=== PATIENT | male | born 1955 | race Caucasian/White ===

== ENCOUNTER → 2017-05-22 | Outpatient (CLI) | payer MEDICAID ==
[~2017-05-22] MED LIST: BACTRIM DS 8001 TAB PO; CEPHALEXIN500 M1 PO; DOXYCYCLINE 10100 MG PO; LORTAB 5/500 501 TAB PO; NO HOME MEDICATIONS; NORCO 325 MG-51 TAB PO; NORCO 325 MG-7.1 TAB PO; POTASSIUM99 MG; ZINC GLUCONATE
[2017-05-22 15:53] LABS: CALCIUM 9.3 mg/dL (8.4-10.2); CREATININE, serum 0.93 mg/dL (0.66-1.25); POTASSIUM 3.9 mmol/L (3.4-5.0)
== END ==
LOC: COL.LAB 15:18
DX: R79.89 Other specified abnormal findings of blood chemistry (principal)

== ENCOUNTER 2017-06-18 14:15 | Outpatient (RCR) | payer MEDICARE, MEDICAID | END 2017-06-21 13:00 | disposition home or self-care (01) | LOC: MKS.ESL.PT 14:15 | DX: S14.129D Central cord syndrome at unspecified level of cervical spinal cord, subsequent encounter (principal); V49.9XXD Car occupant (driver) (passenger) injured in unspecified traffic accident, subsequent encounter | CPT/HCPCS: G8978-GP; G8979-GP; G8980-GP; G8987-GO; G8988-GO ==

== ENCOUNTER 2017-08-07 16:54 | Emergency (ER) | payer MEDICARE, MEDICAID ==
[~2017-08-07] VITALS: Ht 182.9 cm; Wt 82.1 kg
[2017-08-07 16:58] VITALS: TEMP 98.2
[2017-08-07 17:21] LABS: HEMATOCRIT 39.6 % (42.0-52.0); HEMOGLOBIN 13.2 g/dl (13.5-18.0); MEAN CELL VOLUME 87 fl (80.0-100.0); MEAN CORPUSCULAR HEMOGLOBIN 29 pg (27.0-31.0); MEAN CORPUSCULAR HGB CONC 33 g/dl (33.0-37.0); MEAN PLATELET VOLUME 8.7 fl (7.4-10.4); PLATELET COUNT 226 K/mm3 (130-400); RED BLOOD COUNT 4.54 M/mm3 (4.20-5.60); REDCELL DISTRIBUTION WIDTH-CV 13.8 % (11.5-14.5)
[2017-08-07 17:31] LABS: ALBUMIN 3.9 gm/dL (3.5-5.0); BILIRUBIN,TOTAL 0.4 mg/dL (0.0-1.0); CALCIUM 8.6 mg/dL (8.4-10.2); CREATININE, serum 1.2 mg/dL (0.66-1.25); POTASSIUM 4.3 mmol/L (3.4-5.0); TOTAL PROTEIN 7.2 gm/dL (6.4-8.2)
[2017-08-07 17:36] LABS: EOSINOPHIL 3 % (0-4); LYMPHOCYTE 78 % (20.0-51.0); NEUTROPHILS 18 % (42.0-75.2); PLATELET ESTIMATE NORMAL (NORMAL)
[2017-08-07] MEDS ORDERED: DESYREL 100MG100 MG PO (17:37)
[2017-08-07] MEDS ORDERED: NEURONTIN300 MG/CAP PO (17:37)
[2017-08-07] MEDS ORDERED: FLOMAX 0.40.4 MG/CAP PO (17:39)
[2017-08-07 19:10] LABS: COLLECTION METHOD CLEAN CATCH
[2017-08-07 19:17] LABS: MUCOUS Present /lpf; PH 6 (5-8); SQUAMOUS EPITHELIAL None Seen /hpf; URINE APPEARANCE Clear; URINE BACTERIA Rare /hpf; URINE BILIRUBIN Negative (NEGATIVE); URINE BLOOD Negative (NEGATIVE); URINE COLOR Yellow; URINE GLUCOSE Negative (NEGATIVE); URINE KETONE Negative (NEGATIVE); URINE LEUKOCYTE ESTERASE 3+ (NEGATIVE); URINE NITRATE Negative (NEGATIVE); URINE PROTEIN(semi-quant) Negative (NEGATIVE); URINE UROBILINOGEN Negative (NEGATIVE)
[2017-08-07 19:24] LABS: TRICYCLIC ANTIDEPRESS URINE NEGATIVE
[2017-08-07] MEDS ORDERED: AMOXICILLIN 8751 TAB PO (19:36)
[2017-08-07 19:43] VITALS: BP 128/92; PULSE 84
== END 2017-08-07 20:24 | disposition home or self-care (01) ==
LOC: COL.ER 16:54
PROVIDERS: Family Medicine
DX: N30.90 Cystitis, unspecified without hematuria (principal); F15.10 Other stimulant abuse, uncomplicated; F13.10 Sedative, hypnotic or anxiolytic abuse, uncomplicated; Z87.891 Personal history of nicotine dependence
CPT/HCPCS: J0696; J7030

== ENCOUNTER 2017-08-20 09:03 | Emergency (ER) | payer MEDICARE, MEDICAID ==
[~2017-08-20] VITALS: Ht 182.9 cm; Wt 82.3 kg
[~2017-08-20 09:03] MED LIST changes: +AMOXICILLIN 8751 TAB PO; +DESYREL 100MG100 MG PO; +FLOMAX 0.40.4 MG/CAP PO; +NEURONTIN300 MG/CAP PO
[2017-08-20 09:15] VITALS: TEMP 97.7
[2017-08-20 10:28] LABS: HEMATOCRIT 39.3 % (42.0-52.0); HEMOGLOBIN 13.2 g/dl (13.5-18.0); MEAN CELL VOLUME 86 fl (80.0-100.0); MEAN CORPUSCULAR HEMOGLOBIN 29 pg (27.0-31.0); MEAN CORPUSCULAR HGB CONC 34 g/dl (33.0-37.0); MEAN PLATELET VOLUME 8.3 fl (7.4-10.4); PLATELET COUNT 200 K/mm3 (130-400); RED BLOOD COUNT 4.58 M/mm3 (4.20-5.60); REDCELL DISTRIBUTION WIDTH-CV 13.6 % (11.5-14.5)
[2017-08-20 10:44] LABS: COLLECTION METHOD CLEAN CATCH
[2017-08-20 10:44] LABS: ALBUMIN 4.1 gm/dL (3.5-5.0); BILIRUBIN,TOTAL 0.8 mg/dL (0.0-1.0); C-REACTIVE PROTEIN 0.6 mg/dL (0.0-0.9); CREATININE, serum 0.98 mg/dL (0.66-1.25); TOTAL PROTEIN 7.7 gm/dL (6.4-8.2)
[2017-08-20 10:53] LABS: MUCOUS Present /lpf; PH 5 (5-8); SQUAMOUS EPITHELIAL 0-2 /hpf; URINE APPEARANCE Clear; URINE BACTERIA None Seen /hpf; URINE BILIRUBIN Negative (NEGATIVE); URINE BLOOD Negative (NEGATIVE); URINE COLOR Yellow; URINE GLUCOSE Negative (NEGATIVE); URINE KETONE Trace (NEGATIVE); URINE LEUKOCYTE ESTERASE Negative (NEGATIVE); URINE NITRATE Negative (NEGATIVE); URINE PROTEIN(semi-quant) Negative (NEGATIVE); URINE RBC 0-2 /hpf; URINE UROBILINOGEN Negative (NEGATIVE)
[2017-08-20 11:23] LABS: EOSINOPHIL 1 % (0-4); LYMPHOCYTE 81 % (20.0-51.0); NEUTROPHILS 14 % (42.0-75.2)
[2017-08-20 11:24] LABS: PLATELET ESTIMATE NORMAL (NORMAL)
[2017-08-20 11:43] VITALS: BP 136/80; PULSE 86
== END 2017-08-20 11:44 | disposition home or self-care (01) ==
LOC: COL.ER 09:03
PROVIDERS: Physician Assistant
DX: R10.30 Lower abdominal pain, unspecified (principal); Z85.72 Personal history of non-Hodgkin lymphomas; Z87.440 Personal history of urinary (tract) infections; Z98.890 Other specified postprocedural states
CPT/HCPCS: J2270; J2405

== ENCOUNTER 2017-09-09 17:00 | Emergency (ER) | payer MEDICARE, MEDICAID ==
[~2017-09-09] VITALS: Ht 182.9 cm; Wt 84.5 kg
[2017-09-09 17:05] VITALS: BP 150/91; PULSE 75; TEMP 97.9
[2017-09-09 17:32] LABS: COLLECTION METHOD CLEAN CATCH
[2017-09-09 17:48] LABS: PH 6 (5-8); SQUAMOUS EPITHELIAL None Seen /hpf; URINE APPEARANCE Cloudy; URINE BACTERIA Rare /hpf; URINE BILIRUBIN Negative (NEGATIVE); URINE BLOOD 1+ (NEGATIVE); URINE COLOR Yellow; URINE GLUCOSE Negative (NEGATIVE); URINE KETONE Negative (NEGATIVE); URINE LEUKOCYTE ESTERASE 3+ (NEGATIVE); URINE NITRATE Positive (NEGATIVE); URINE PROTEIN(semi-quant) 1+ (NEGATIVE); URINE RBC 20-50 /hpf
[2017-09-09] MEDS ORDERED: LEVAQUIN 5500 MG/TA1 PO (18:04)
== END 2017-09-09 18:29 | disposition home or self-care (01) ==
LOC: COL.ER 17:00
PROVIDERS: Family Medicine
DX: N30.00 Acute cystitis without hematuria (principal); F17.210 Nicotine dependence, cigarettes, uncomplicated
CPT/HCPCS: J0696

== ENCOUNTER → 2017-11-01 | Outpatient (CLI) | payer MEDICARE, MEDICAID ==
[~2017-11-01] MED LIST changes: +LEVAQUIN 5500 MG/TA1 PO
== END ==
LOC: COL.LAB 10:36
DX: R30.0 Dysuria (principal); Z11.3 Encounter for screening for infections with a predominantly sexual mode of transmission

== ENCOUNTER → 2018-02-13 | Outpatient (CLI) | payer MEDICARE, MEDICAID ==
[2018-02-13 10:39] LABS: HEMATOCRIT 43.1 % (42.0-52.0); HEMOGLOBIN 14.3 g/dl (13.5-18.0); MEAN CELL VOLUME 91 fl (80.0-100.0); MEAN CORPUSCULAR HEMOGLOBIN 30 pg (27.0-31.0); MEAN CORPUSCULAR HGB CONC 33 g/dl (33.0-37.0); PLATELET COUNT 261 K/mm3 (130-400); RED BLOOD COUNT 4.76 M/mm3 (4.20-5.60); REDCELL DISTRIBUTION WIDTH-CV 13.9 % (11.5-14.5)
[2018-02-13 11:05] LABS: LYMPHOCYTE 81 % (20.0-51.0); NEUTROPHILS 17 % (42.0-75.2); PLATELET ESTIMATE NORMAL (NORMAL)
[2018-02-13 11:08] LABS: ALBUMIN 4.2 gm/dL (3.5-5.0); BILIRUBIN,TOTAL 0.5 mg/dL (0.0-1.0); CALCIUM 9.7 mg/dL (8.4-10.2); CREATININE, serum 0.96 mg/dL (0.66-1.25); POTASSIUM 4.7 mmol/L (3.4-5.0); TOTAL PROTEIN 7.2 gm/dL (6.4-8.2)
[2018-02-13 11:33] LABS: HIV 1/2 Antibodies Non-Reactive; HIV-1p24 Antigen Non-Reactive
[2018-02-13 11:38] LABS: THYROID STIMULATING HORMONE 1.94 uIU/mL (0.465-4.680)
[2018-02-14 11:38] LABS: RPR (VDRL) Negative (Negative)
== END ==
LOC: COL.LAB 09:58
PROVIDERS: Family Medicine
DX: D72.820 Lymphocytosis (symptomatic) (principal); A64 Unspecified sexually transmitted disease; R00.0 Tachycardia, unspecified; R59.1 Generalized enlarged lymph nodes

== ENCOUNTER → 2018-04-19 | Outpatient (CLI) | payer MEDICARE, MEDICAID | LOC: ZCOL.LAB 16:35 | DX: R30.0 Dysuria (principal) ==

== ENCOUNTER → 2018-04-25 | Outpatient (CLI) | payer MEDICARE, MEDICAID | LOC: COL.RAD 11:02 | DX: D72.829 Elevated white blood cell count, unspecified (principal); R59.0 Localized enlarged lymph nodes; S22.080A Wedge compression fracture of T11-T12 vertebra, initial encounter for closed fracture; S32.010A Wedge compression fracture of first lumbar vertebra, initial encounter for closed fracture; N32.89 Other specified disorders of bladder; N28.82 Megaloureter; N13.30 Unspecified hydronephrosis; M89.8X8 Other specified disorders of bone, other site | CPT/HCPCS: Q9967 ==

== ENCOUNTER → 2018-06-28 | Outpatient (REF) | LOC: ZLAB.WCH 16:55 | DX: Z01.89 Encounter for other specified special examinations (principal) ==

== ENCOUNTER → 2018-06-28 | Outpatient (REF) | LOC: ZLAB.WCH 08:21 | DX: Z01.89 Encounter for other specified special examinations (principal) ==

== ENCOUNTER → 2018-07-04 | Outpatient (REF) | LOC: ZLAB.WCH 16:01 | DX: Z01.89 Encounter for other specified special examinations (principal) ==

== ENCOUNTER 2018-12-31 13:43 | Inpatient (IN) | payer MEDICARE, MEDICAID ==
[~2018-12-31] VITALS: Ht 182.9 cm; Wt 81.1 kg
[2018-12-31 14:17] LABS: COLLECTION METHOD CLEAN CATCH
[2018-12-31 14:24] LABS: ALANINE AMINOTRANSFERASE 12 U/L (21-72); ALBUMIN 3.7 gm/dL (3.5-5.0); ALKALINE PHOSPHATASE 105 U/L (50-136); ANION GAP 10 mmol/L (7-16); AST,SGOT 21 U/L (15-37); BILIRUBIN,TOTAL 0.2 mg/dL (0.0-1.0); BLOOD UREA NITROGEN 72 mg/dL (9-20); CALCIUM 8.4 mg/dL (8.4-10.2); CARBON DIOXIDE 25 mmol/L (22-30); CHLORIDE 101 mmol/L (98-107); GLUCOSE 82 mg/dL (74-106); LIPASE 66 U/L (23-300); SODIUM 136 mmol/L (137-145)
[2018-12-31 14:35] LABS: CREATININE, serum 4.26 (0.66-1.25)
[2018-12-31 14:36] LABS: POTASSIUM 6.4 mmol/L (3.4-5.0); TROPONIN-I < 0.012 ng/mL (0.000-0.035)
[2018-12-31 14:41] LABS: PROTHROMBIN TIME 11.4 SECONDS (9.7-12.8)
[2018-12-31 14:46] LABS: PH 8 (5-8); SQUAMOUS EPITHELIAL 0-2 /hpf; URINE APPEARANCE Clear; URINE BACTERIA Rare /hpf; URINE BILIRUBIN Negative (NEGATIVE); URINE BLOOD 1+ (NEGATIVE); URINE COLOR Straw; URINE GLUCOSE Negative (NEGATIVE); URINE KETONE Negative (NEGATIVE); URINE LEUKOCYTE ESTERASE 2+ (NEGATIVE); URINE NITRATE Positive (NEGATIVE); URINE PROTEIN(semi-quant) Negative (NEGATIVE); URINE UROBILINOGEN Negative (NEGATIVE)
--- NOTE | 2018-12-31 17:45 | NUR ---
Telephone report recieved from VERONICA Yarbrough
--- NOTE | 2018-12-31 18:39 | NUR ---
MD Denton in room
[2018-12-31 18:53] LABS: HEMOGLOBIN 8.9 g/dl (13.5-18.0); MEAN CORPUSCULAR HEMOGLOBIN 29 pg (27.0-31.0); RED BLOOD COUNT 3.11 M/mm3 (4.20-5.60)
[2018-12-31 18:54] LABS: MEAN CELL VOLUME 93 fl (80.0-100.0); MEAN CORPUSCULAR HGB CONC 31 g/dl (33.0-37.0); MEAN PLATELET VOLUME 9.6 fl (7.4-10.4); PLATELET COUNT 385 K/mm3 (130-400); REDCELL DISTRIBUTION WIDTH-CV 12.8 % (11.5-14.5)
[2018-12-31 18:55] VITALS: BP 142/85; PULSE 95; TEMP 99
[2018-12-31 18:57] LABS: EOSINOPHIL 2 % (0-4); HYPOCHROMIA 2+; LYMPHOCYTE 68 % (20.0-51.0); NEUTROPHILS 28 % (42.0-75.2); PLATELET ESTIMATE NORMAL (NORMAL)
[2018-12-31 20:00] VITALS: BP 161/87; PULSE 92; TEMP 98.6
--- NOTE | 2018-12-31 20:30 | NUR ---
Assessment complete; Reporting "12/10" to abdomen and penis" Patient observed intermittently yelling out loud and holding genitals. Steward tubing assessed no kinks and draining well. Does not appear to be tugging at entry site. Urine is red tinged with sediment. Patient also repeatedly saying that he doesn't think the steward is "working". Nurse attempted to educate how the steward works. Showed the paient the urine draining from the tube to the bag. Patient is alert and oriented but occasionally makes odd remards. When asked who was the current president patient stated "me", howver knows the date and where he is. Called hospitalist to ask about adding something for pain managment. Gave orders to change morphine from 2mg q2hr to 1 mg q2hr. Verbally clarified that he want to actually reduce pain medication and hospitalist stated "yes". Will call back if patient's pain continues to be uncontrolled.
--- NOTE | 2018-12-31 21:00 | NUR ---
Reported feeling need to have a BM, assisted up to toilet. Patient reported some relief from pain while sitting on the toilet. After using the toilet, patient stood up by toilet for approximately 5 minutes as he stated standing felt better as well. Nurse stayed in room while patient was standing up, then assisted back to bed.
--- NOTE | 2018-12-31 22:00 | NUR ---
Patient yelling loudlly and verbally aggressive towards staff. Acknowledged patient's pain and distress but stated that this nurse will not tolerate being yelled at. Requesting to get up to toilet. Assisted up and pain medication administered.
[2018-12-31 23:13] LABS: CALCIUM 6.7 mg/dL (8.4-10.2); CREATININE, serum 3.26 (0.66-1.25); POTASSIUM 4.6 mmol/L (3.4-5.0)
--- NOTE | 2018-12-31 23:15 | NUR ---
Patient continues to be very anxious and yelling loudly about being in pain. Called hospitalist to request further management for pain and anxiety. Received order for one time dose of ativan. Potassium results pending; requested to be notified if results are still greater than 6.5. Can call [facility] for other issues or concerns during the night.
[2019-01-01] VITALS (66 sets, daily range): BP systolic 139–162; BP diastolic 67–94; PULSE 78–109; TEMP 97.4–98.6; O2SAT 62–100
--- NOTE | 2019-01-01 01:40 | NUR ---
Resting in bed currenlty, however patient is impulsive and frequently attempts to self transfer out of bed to sit on the toilet. Patient pased one stool but mostly just passing gas. Patient not steady on feet. Has non-slip socks, bed alarm in use, and a gait belt used for transfers.
[2019-01-01 05:50] LABS: CALCIUM 6.6 mg/dL (8.4-10.2); CREATININE, serum 3.25 (0.66-1.25); POTASSIUM 4.5 mmol/L (3.4-5.0)
--- NOTE | 2019-01-01 06:30 | NUR ---
Critical WBC not called to physician as trending down.
[2019-01-01 07:12] LABS: HEMATOCRIT 24.9 % (42.0-52.0); HEMOGLOBIN 7.6 g/dl (13.5-18.0); MEAN CELL VOLUME 93 fl (80.0-100.0); RED BLOOD COUNT 2.67 M/mm3 (4.20-5.60)
[2019-01-01 07:13] LABS: EOSINOPHIL 1 % (0-4); LYMPHOCYTE 66 % (20.0-51.0); MEAN CORPUSCULAR HEMOGLOBIN 29 pg (27.0-31.0); MEAN CORPUSCULAR HGB CONC 31 g/dl (33.0-37.0); MEAN PLATELET VOLUME 9.2 fl (7.4-10.4); NEUTROPHILS 28 % (42.0-75.2); PLATELET COUNT 324 K/mm3 (130-400); REDCELL DISTRIBUTION WIDTH-CV 12.5 % (11.5-14.5)
[2019-01-01 07:15] LABS: OVALOCYTES 1+; PLATELET ESTIMATE NORMAL (NORMAL)
--- NOTE | 2019-01-01 07:30 | NUR ---
Bedside report given to VERONICA Chavarria and VERONICA Yanez.
--- NOTE | 2019-01-01 07:45 | NUR ---
pt agitated intermittently, reports pain in abd and "my tube" pointing at catheter Morphine given c only moderate relief No gross motor def. PERRLA swaying gait, bed alarm on.
--- NOTE | 2019-01-01 09:12 | NUR ---
MIAN leach met with the patient to discuss a discharge plan. The patient lives alone in [place]. The patient has a wheelchair and a walker and reports independence with ADLs. The patient states he does not have a PCP and uses [facility]. Patient reports he can afford them but sometimes cannot pick them up. The patient has advanced directives in the EMR. The patient plans to return home upon discharge. Patient may need a ride home upon discharge. MIAN leach contacted the patient's insurance to confirm transportation services, patient is covered. customer services coordinator to call the above number to arrange transportation upon discharge, if patient cannot find a ride. customer services coordinator will continue to follow to ensure a safe discharge.
[2019-01-01 11:20] LABS: CALCIUM 8.6 mg/dL (8.4-10.2)
[2019-01-01 11:21] LABS: CREATININE, serum 4.04 (0.66-1.25)
[2019-01-01 11:22] LABS: POTASSIUM 5.8 mmol/L (3.4-5.0)
--- NOTE | 2019-01-01 13:50 | NUR ---
Urology consult called to Dr Ricardo
--- NOTE | 2019-01-01 15:43 | NUR ---
Report called to medical. Lab in to draw 1600 potassium level.
--- NOTE | 2019-01-01 17:00 | NUR ---
Pt to medical unit rm 314 from ICU via WC accompanied by VERONICA Yanez. Pt with wobbly gait, alert but drowsy, intermittently c/o pain to abd, yells "my guts." Tinajero to DD with blood tinged urine with clots noted. IVF's infusing per orders through right AC site without s/s of complications. Saline lock IV to left AC without s/s of complications. Call light in reach. Bed alarm on.
--- NOTE | 2019-01-01 18:05 | NUR ---
Pt continues to yell out intermittently in pain from abdomen, has been up to bathroom multiple times, passing small amount of flatus, small formed BM this last visit to the bathroom, pt denies relief at this time. Pt eating supper, reports this is helping at this time. Sprite provided. Call light in reach. Bed alarm on.
[2019-01-02 03:29] VITALS: BP 170/83; PULSE 100; TEMP 97.6
--- NOTE | 2019-01-02 03:44 | NUR ---
for drug screen collected and taken to lab. Morphine 1mg IVP given. Sitter remains in room
[2019-01-02 04:03] LABS: TRICYCLIC ANTIDEPRESS URINE NEGATIVE
--- NOTE | 2019-01-02 08:07 | NUR ---
Patient was moved from room 314 to room 312 due to patient being a fall risk and impulsively getting out of bed. He becomes irritated with staff intervention. Was delivered breakfast and ate with fingers, did attempt to give sliverware to him and he declined. He also ate a muffin with breakfast and has crumbs in his bed and on his gown, does not wish to change when offered assistance. Morning vital signs were attempted and he refused, shouting at staff to leave him alone. Currently he is laying in bed, eyes are closed. Call light is within reach. Alarm is on, yellow gown is in place. Refuses to wear socks.
[2019-01-02 08:43] LABS: MEAN CELL VOLUME 92 fl (80.0-100.0); MEAN CORPUSCULAR HGB CONC 31 g/dl (33.0-37.0); MEAN PLATELET VOLUME 9.3 fl (7.4-10.4); PLATELET COUNT 353 K/mm3 (130-400); RED BLOOD COUNT 2.97 M/mm3 (4.20-5.60); REDCELL DISTRIBUTION WIDTH-CV 12.5 % (11.5-14.5)
[2019-01-02 08:47] LABS: ALBUMIN 3.2 gm/dL (3.5-5.0); HEMATOCRIT 27.4 % (42.0-52.0); HEMOGLOBIN 8.6 g/dl (13.5-18.0); MEAN CORPUSCULAR HEMOGLOBIN 29 pg (27.0-31.0); PHOSPHOROUS 6.1 mg/dL (2.5-4.5); POTASSIUM 4.9 mmol/L (3.4-5.0)
[2019-01-02 09:08] LABS: CREATININE, serum 4.28 (0.66-1.25)
[2019-01-02 09:58] LABS: BAND 1 % (0-10); EOSINOPHIL 2 % (0-4); HYPOCHROMIA 2+; LYMPHOCYTE 74 % (20.0-51.0); NEUTROPHILS 23 % (42.0-75.2); PLATELET ESTIMATE NORMAL (NORMAL)
--- NOTE | 2019-01-02 11:15 | NUR ---
Patient has been up and down out of bed, alarm sounding. Wishes to sit on the toilet to urinate. Is reminded of steward and realize he has it. States he needs to have a bowel movement but does not. He gets drowsy on the toliet and is easily redirected to bed.
[2019-01-02 11:48] LABS: URIC ACID 7.5 mg/dL (3.5-8.5)
[2019-01-02 12:04] LABS: C-REACTIVE PROTEIN 14.3 mg/dL (0.0-0.9)
[2019-01-02 13:00] LABS: COLLECTION METHOD CATHETER
[2019-01-02 13:19] LABS: MUCOUS Present /lpf; PH 6 (5-8); SQUAMOUS EPITHELIAL None Seen /hpf; URINE APPEARANCE Hazy; URINE BACTERIA Rare /hpf; URINE BILIRUBIN Negative (NEGATIVE); URINE BLOOD 3+ (NEGATIVE); URINE COLOR Amber; URINE GLUCOSE Negative (NEGATIVE); URINE KETONE Negative (NEGATIVE); URINE LEUKOCYTE ESTERASE 2+ (NEGATIVE); URINE NITRATE Positive (NEGATIVE); URINE PROTEIN(semi-quant) 2+ (NEGATIVE); URINE RBC >50 /hpf; URINE UROBILINOGEN Negative (NEGATIVE); URINE WBC >50 /hpf
[2019-01-02 13:24] LABS: FRACTIONAL EXCRETION OF NA+ 7.1 %
[2019-01-02 13:40] LABS: CREATININE, serum 4.15 (0.66-1.25)
[2019-01-02 15:00] VITALS: BP 130/97; PULSE 95; TEMP 98.9
[2019-01-02 18:41] VITALS: BP 121/64; PULSE 95; TEMP 98.4
--- NOTE | 2019-01-02 19:34 | NUR ---
Patient has order for CWIA protocol. Has scored 4-7, medication given as ordered. Patient does sleep for small periods of time then awakens complaining of stomach pain and wants to sit on the toilet to have a bowel movenet. Has had 2 small formed stools and has been passing a lot of gas. Is unsteady on his feet, does try to get up from bed without assist and becomes irritated when staff asks him to wait so they can attend to steward and IV tubing. This irritates the patient and he grumbles at staff.
--- NOTE | 2019-01-02 19:45 | NUR ---
Shift assessment complete. Patient agitated, insisting on walking to the bathroom. Gait very unsteady. Unable to use proper fall precaution interventions d/t agitation. Patient oriented to self and year, disoriented to place. CIWA score 6, ordered IV ativan given per protocol. Security and Demurrage Man called d/t patient agitation. Patient safely returned to bed with assist of 2. Security outside of room, not needed at this time. VP DELIVERY sitting at patient bedside d/t high fall risk and agitation. Will continue to monitor.
[2019-01-02 20:36] VITALS: BP 168/82; PULSE 102; TEMP 98.2
--- NOTE | 2019-01-02 22:08 | NUR ---
Patient in bed, continues to be agitated. Refusing staff to check VS. VP PURCHASING sitter at bedside. Patient remains confused, agitated, and insistent on walking to the bathroom, despite the presence of the catheter. Ordered IV ativan given based on last CIWA score d/t patient's refusal for staff to obtain VS. HR 102 on tele. Will continue to monitor.
[2019-01-02 23:17] VITALS: BP 179/82; PULSE 105; TEMP 98.4
[2019-01-03] VITALS (152 sets, daily range): BP systolic 108–152; BP diastolic 66–90; PULSE 77–101; TEMP 98.1–98.4; O2SAT 78–100
--- NOTE | 2019-01-03 04:31 | NUR ---
Patient in bed, sitter at bedside. Patient agitated and attempting to use commode. Reoriented patient that he has a catheter, pt still insistent on using BSC. Assisted back to bed. CIWA 8, IV ativan given per protocol. Will continue to monitor.
--- NOTE | 2019-01-03 08:06 | NUR ---
Report received from Pooja MARTIN and care resumed. Pt sleeping initially but has since been up and down several times throughout morning. Pt unable to answer orientation questions and is very unsteady on feet. When attempting to reorient and get pt to sit down he began yelling and cussing at staff stating "don't fucking push me or I'll knock you off your feet" Explained to pt I was just trying to help him from following. Bed alarm is on. Breakfast ordered. Call was placed to Darlene regarding increased etoh scores throughout last [address] further orders.
--- NOTE | 2019-01-03 10:20 | NUR ---
SW attended clinical rounds. The patient remains agitated and delirious. Plan is for the patient to transfer down to ICU today, 01/03. SW to continue to follow.
--- NOTE | 2019-01-03 10:29 | NUR ---
Dr Chawla in to see pt. Updated on continued agitation/restlessness. Meds reviewed and was decided best plan of care would be to transfer to ICU and start on precedex drip. Dr Harrington called and notified of this and agrees with plan of care. Will also order PICC line. meter shop supervisor notified of need to transfer to ICU. Will continue to follow,.
--- NOTE | 2019-01-03 12:50 | NUR ---
Telephone order per Dr Harrington to increase precedex to 1.0 mcg/kg/hr.
--- NOTE | 2019-01-03 15:10 | NUR ---
Spoke with Dr. Brooks (Radiology) about orders for LP. Dr. Brooks states unable to do unless patient is able to lay flat on x-ray table and follow commands. Patient is unable to do that at this time. Reported this to Aura MARTIN. She will page Anesthesia and speak to them
[2019-01-03 15:25] LABS: MEAN CELL VOLUME 93 fl (80.0-100.0); MEAN CORPUSCULAR HGB CONC 31 g/dl (33.0-37.0); MEAN PLATELET VOLUME 9.1 fl (7.4-10.4); PLATELET COUNT 318 K/mm3 (130-400); RED BLOOD COUNT 2.55 M/mm3 (4.20-5.60); REDCELL DISTRIBUTION WIDTH-CV 12.6 % (11.5-14.5)
[2019-01-03 15:30] LABS: ALBUMIN 2.9 gm/dL (3.5-5.0); BILIRUBIN,TOTAL 0.3 mg/dL (0.0-1.0); CALCIUM 7.7 mg/dL (8.4-10.2); PHOSPHOROUS 7.7 mg/dL (2.5-4.5); POTASSIUM 5.5 mmol/L (3.4-5.0); TOTAL PROTEIN 5.8 gm/dL (6.4-8.2)
[2019-01-03 15:37] LABS: CREATININE, serum 4.81 (0.66-1.25); HEMATOCRIT 23.7 % (42.0-52.0); HEMOGLOBIN 7.4 g/dl (13.5-18.0); MEAN CORPUSCULAR HEMOGLOBIN 29 pg (27.0-31.0)
--- NOTE | 2019-01-03 16:49 | NUR ---
Report given to Jaxon MARTIN and care transfered.
[2019-01-03 16:50] LABS: LYMPHOCYTE 79 % (20.0-51.0); NEUTROPHILS 20 % (42.0-75.2)
--- NOTE | 2019-01-03 16:50 | NUR ---
RECEIVED REPORT FROM VERONICA CANTOR. PT SLEEPING AT THIS TIME. VSS. PRESEDEX AT 0.9MCG/KG/MIN. NS AT 75ML/HR.
[2019-01-03 16:53] LABS: PLATELET ESTIMATE NORMAL (NORMAL)
--- NOTE | 2019-01-03 17:30 | NUR ---
RT AT BEDSIDE FOR ABG. PT AROUSES TO NOISES AND APPEARS AGGRESSIVE BRIEFLY BUT FALLS BACK TO SLEEP EASILY. PT TOLERATES ABG DRAW. VSS.
--- NOTE | 2019-01-03 18:27 | NUR ---
DR JAMESON AT BEDSIDE FOR ASSESSMENT. NEW ORDERS RECEIVED.
--- NOTE | 2019-01-03 19:00 | NUR ---
Received report from VERONICA Coates.
--- NOTE | 2019-01-03 22:00 | NUR ---
Patient's linens were wet with sweat and urine and required changing. Upon disturbing the patient to change linens at approx. 2109, he quickly became restless and agitated. Precedex was titrated up to 0.8 mcg/kg/hour or 16.2 mL/hr at 2118. Patient scored a 9 on the CIWA scale at this time and was given Ativan 2mg IV per orders. Patient's agitation continued to increase during bed change, and precedex was titrated up to 0.9 mcg/kg/hour or 18.2 mL/hr at 2153.
[2019-01-04] VITALS (68 sets, daily range): BP systolic 118–139; BP diastolic 79–95; PULSE 77–93; TEMP 97–99; O2SAT 87–93
--- NOTE | 2019-01-04 00:38 | NUR ---
Patient became agitated with 0000 assessment. Patient scored a 7 on the CIWA scale during assessment. Ativan 1mg IV was administered per orders.
[2019-01-04 05:36] LABS: KAPPA FREE LIGHT CHAIN-SERUM 117.06 mg/L (()); KAPPA LAMBDA RATIO 3.34 ratio (()); LAMDA FREE LIGHT CHAIN SERUM 35.06 mg/L (())
[2019-01-04 05:41] LABS: MEAN CELL VOLUME 92 fl (80.0-100.0); MEAN CORPUSCULAR HGB CONC 31 g/dl (33.0-37.0); MEAN PLATELET VOLUME 9.3 fl (7.4-10.4); PLATELET COUNT 353 K/mm3 (130-400); RED BLOOD COUNT 2.73 M/mm3 (4.20-5.60); REDCELL DISTRIBUTION WIDTH-CV 12.5 % (11.5-14.5)
--- NOTE | 2019-01-04 05:41 | NUR ---
Since 399 assessment, patient's urine has progressed from cele to pink/orange color with increased sediment and mucous.
[2019-01-04 05:44] LABS: HEMATOCRIT 25.2 % (42.0-52.0); HEMOGLOBIN 7.8 g/dl (13.5-18.0); MEAN CORPUSCULAR HEMOGLOBIN 29 pg (27.0-31.0)
[2019-01-04 05:53] LABS: ALBUMIN 2.9 gm/dL (3.5-5.0); CALCIUM 7.9 mg/dL (8.4-10.2); PHOSPHOROUS 7.5 mg/dL (2.5-4.5)
[2019-01-04 05:58] LABS: CREATININE, serum 5.29 (0.66-1.25); POTASSIUM 5.8 mmol/L (3.4-5.0)
[2019-01-04 06:04] LABS: EOSINOPHIL 3 % (0-4); HYPOCHROMIA 2+; LYMPHOCYTE 69 % (20.0-51.0); NEUTROPHILS 25 % (42.0-75.2); PLATELET ESTIMATE NORMAL (NORMAL)
--- NOTE | 2019-01-04 07:00 | NUR ---
Bedside shift report received from VERONICA George. Patient is sleeping, but is easily awakened with touch. Full assessment completed, but during assessment patient is attempting to get out of bed, states "You all are always bothering me. I'm getting out of here. Get my clothes. I'm leaving". Patient is re-covered with blankets and falls back asleep. Vital signs are stable. Precedex present, refer to titration documentation. All invasive lines assessed and secured. Call light within reach. Bed in lowest position. Side rails up x3. Bed alarm on and functioning.
--- NOTE | 2019-01-04 07:15 | NUR ---
REPORT GIVEN TO VERONICA ESTEVEZ. CARE TRANSFERRED AT THIS TIME.
--- NOTE | 2019-01-04 12:00 | NUR ---
Patient has had no acute changes throughout the shift. Patient remains sedated with Precedex, refer to titration documentation for rate changes. Patient is calm when left alone, but becomes very agitated with any stimulus. Vital signs remain stable. Call light within reach. Bed in lowest position. Side rails up x3.
--- NOTE | 2019-01-04 13:05 | NUR ---
Patient becoming restless on the way to Head CT. Refer to precedex titrations.
--- NOTE | 2019-01-04 13:15 | NUR ---
Patient transferred to CT for Head CT W/O. Patient becomes agitated, cursing at staff. Precedex gtt titrated, refer to titrations. Patient transferred back to ICU with no complications.
--- NOTE | 2019-01-04 15:00 | NUR ---
Patient's choco Cowart at bedside and updated on patient's status. Sofya states that she does not like the plan of possibly doing a lumbar puncture on Sunday per Dr. Gamino's orders. Further discussion about this plan will need to continue.
--- NOTE | 2019-01-04 19:00 | NUR ---
Family meeting involving both daughters and signifcant others as well as patient's brother and brother's . Dr. Sethi, Lisset SUAREZ, Krishna RN, and Diane RN present for family meeting. Plan of care discussed and all are in agreement to continue with the plan of care that providers see as safest, most accurate care.
--- NOTE | 2019-01-04 19:30 | NUR ---
Bedside shift report given to VERONICA Keller at this time. Patient agitated during report, vital signs stable. Call light within reach. Family at bedside. Bed in lowest position. Side rails up x3.
[2019-01-04 21:11] LABS: URINE PROTEIN:CREAT RATIO 6.28 (0.00-0.14)
[2019-01-05] VITALS (177 sets, daily range): BP systolic 112–142; BP diastolic 69–87; PULSE 75–105; TEMP 97.4–98.1; O2SAT 85–96
[2019-01-05 05:19] LABS: MEAN CELL VOLUME 91 fl (80.0-100.0); MEAN CORPUSCULAR HGB CONC 32 g/dl (33.0-37.0); PLATELET COUNT 389 K/mm3 (130-400); RED BLOOD COUNT 2.74 M/mm3 (4.20-5.60); REDCELL DISTRIBUTION WIDTH-CV 12.3 % (11.5-14.5)
[2019-01-05 05:22] LABS: HEMATOCRIT 24.8 % (42.0-52.0); MEAN CORPUSCULAR HEMOGLOBIN 29 pg (27.0-31.0)
[2019-01-05 05:31] LABS: ALBUMIN 2.9 gm/dL (3.5-5.0); BILIRUBIN,TOTAL 0.2 mg/dL (0.0-1.0); CALCIUM 7.7 mg/dL (8.4-10.2); CREATININE, serum 4.84 (0.66-1.25); MAGNESIUM 1.5 mg/dL (1.6-2.3); PHOSPHOROUS 7.5 mg/dL (2.5-4.5); POTASSIUM 5.2 mmol/L (3.4-5.0); TOTAL PROTEIN 5.9 gm/dL (6.4-8.2)
[2019-01-05 05:33] LABS: LYMPHOCYTE 78 % (20.0-51.0); NEUTROPHILS 19 % (42.0-75.2); PLATELET ESTIMATE NORMAL (NORMAL)
[2019-01-05 05:34] LABS: HYPOCHROMIA 1+
--- NOTE | 2019-01-05 09:45 | NUR ---
Weaning off Precedex
[2019-01-05 11:15] LABS: PARTIAL THROMBOPLASTIN TIME 28.8 SECONDS (26.0-37.0)
--- NOTE | 2019-01-05 12:12 | NUR ---
Sitting up in chair. Oriented to self requires reorientation to time/date. Requests "coke" RN brings carbonated coca cola beverage-pt responds "not that kind"
--- NOTE | 2019-01-05 18:18 | NUR ---
More agitated this evening, yells out, is reoriented by nursing staff then returns to hollering out immediately. Talking to things in room that are not visible to RN. Precedex restarted-titrating per protocol. See flowsheet.
[2019-01-06] VITALS (177 sets, daily range): BP systolic 124–141; BP diastolic 71–86; PULSE 49–71; TEMP 97.4–98; O2SAT 90–98
[2019-01-06 05:53] LABS: MEAN CELL VOLUME 90 fl (80.0-100.0); MEAN CORPUSCULAR HGB CONC 32 g/dl (33.0-37.0); MEAN PLATELET VOLUME 9.4 fl (7.4-10.4); PLATELET COUNT 375 K/mm3 (130-400); RED BLOOD COUNT 2.51 M/mm3 (4.20-5.60); REDCELL DISTRIBUTION WIDTH-CV 12.2 % (11.5-14.5)
[2019-01-06 05:55] LABS: PROTHROMBIN TIME 11.3 SECONDS (9.7-12.8)
[2019-01-06 05:56] LABS: HEMATOCRIT 22.6 % (42.0-52.0); HEMOGLOBIN 7.3 g/dl (13.5-18.0); MEAN CORPUSCULAR HEMOGLOBIN 29 pg (27.0-31.0)
[2019-01-06 06:04] LABS: ALANINE AMINOTRANSFERASE 12 U/L (21-72); ALBUMIN 2.8 gm/dL (3.5-5.0); ALKALINE PHOSPHATASE 99 U/L (50-136); ANION GAP 11 mmol/L (7-16); AST,SGOT 20 U/L (15-37); BILIRUBIN,TOTAL < 0.1 mg/dL (0.0-1.0); BLOOD UREA NITROGEN 66 mg/dL (9-20); CALCIUM 7.3 mg/dL (8.4-10.2); CARBON DIOXIDE 23 mmol/L (22-30); CHLORIDE 106 mmol/L (98-107); GLUCOSE 149 mg/dL (74-106); POTASSIUM 3.6 mmol/L (3.4-5.0); SODIUM 140 mmol/L (137-145); TOTAL PROTEIN 5.7 gm/dL (6.4-8.2)
[2019-01-06 06:14] LABS: MAGNESIUM 1.6 mg/dL (1.6-2.3); PHOSPHOROUS 7.9 mg/dL (2.5-4.5)
--- NOTE | 2019-01-06 06:30 | NUR ---
Patient had outburst at this nurse stating he "Wanted some fucking water!" Nurse has been filling water for patient throughout the night, he does not remember at times drinking the water. Will continue to monitor.
[2019-01-06 06:33] LABS: HYPOCHROMIA 2+; LYMPHOCYTE 56 % (20.0-51.0); NEUTROPHILS 42 % (42.0-75.2); PLATELET ESTIMATE NORMAL (NORMAL)
--- NOTE | 2019-01-06 07:18 | NUR ---
Report received from Krishna MARTIN and care resumed.
--- NOTE | 2019-01-06 07:19 | NUR ---
Pt very restless, yelling out. Saying he is "getting the hell out of here". Precedex titrated up.
--- NOTE | 2019-01-06 08:51 | NUR ---
ATTEMPTED EEG AT 0800 TODAY. PATIENT IS VERY RESTLESS AND VERONICA CANTOR STATES THAT HE WILL NOT BE ABLE TO DO EEG TODAY. PATIENT HAS BEEN VERY RESTLESS AND FRUSTRATED, WILL NOT BE ABLE TO COMPLETE EEG. WILL CHECK BACK TOMORROW ON PATIENT STATUS. TAWANA BULL, ASSEMBLY MACHINE SET UP MECHANIC
[2019-01-06 10:24] LABS: ARTERIAL BLD GAS O2 SATURATION 95.7 % (92-100); ARTERIAL BLD GAS TCO2 CT 22.4; ARTERIAL BLOOD GAS BASE EXCESS -3.6 (-2-2); ARTERIAL BLOOD GAS HCO3 21.3 meq/L (22-26); ARTERIAL BLOOD GAS PCO2 37.3 mmHg (35-45); ARTERIAL BLOOD GAS PO2 86.4 mmHg (80-100); ARTERIAL BLOOD GAS pH 7.37 (7.35-7.45)
--- NOTE | 2019-01-06 10:24 | NUR ---
Jenny with Dr Sethi in to see pt at this time as well as case management.
--- NOTE | 2019-01-06 10:32 | NUR ---
SW met with patient to follow up after the weekend. Patient has been agitated and requiring medications to control the agitation. Patient reports he lives at home and would like to go home today. Patient also reported Ty is his DPOA-HC but he would like to change it to his brother, Rashaad. SW reported that we can complete a new DPOA-HC closer to discharge. Patient is agreeable. Patient unable to complete DPOA-HC at this time due to current medication requirements for agitation. Patient continued to ask about his daughter, Bryanna, and brother, Rashaad. Patient requested SW contact Bryanna and inquire when she and Rashaad will be visiting. Patient, then quickly became agitated. SW called for nurse. Nurse advised not to contact patients family because they increase patient's agitation. SW will continue to follow.
--- NOTE | 2019-01-06 11:31 | NUR ---
Dr Gross called for status update. No new orders at this time. Dr Valverde rounding on pt at this time. Will continue to follow.
[2019-01-06 17:16] LABS: COMPLEMENT-C3 139 mg/dL (79-152); COMPLEMENT-C4 45 mg/dL (18-55)
--- NOTE | 2019-01-06 18:59 | NUR ---
Report given to Krishna MARTIN and care transfered.
[2019-01-07] VITALS: BP 135/69; PULSE 48; TEMP 97.8
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
[2019-01-07 04:00] VITALS: BP 133/81; PULSE 52; TEMP 97.6
[2019-01-07 05:20] LABS: MEAN CELL VOLUME 90 fl (80.0-100.0); MEAN CORPUSCULAR HGB CONC 32 g/dl (33.0-37.0); MEAN PLATELET VOLUME 9.2 fl (7.4-10.4); PLATELET COUNT 340 K/mm3 (130-400); RED BLOOD COUNT 2.65 M/mm3 (4.20-5.60); REDCELL DISTRIBUTION WIDTH-CV 12.4 % (11.5-14.5)
[2019-01-07 05:22] LABS: HEMATOCRIT 23.8 % (42.0-52.0); HEMOGLOBIN 7.7 g/dl (13.5-18.0); MEAN CORPUSCULAR HEMOGLOBIN 29 pg (27.0-31.0)
[2019-01-07 05:30] LABS: ALBUMIN 2.9 gm/dL (3.5-5.0); BILIRUBIN,TOTAL 0.2 mg/dL (0.0-1.0); CALCIUM 7.5 mg/dL (8.4-10.2); CREATININE, serum 2.89 (0.66-1.25); POTASSIUM 3.3 mmol/L (3.4-5.0); TOTAL PROTEIN 5.9 gm/dL (6.4-8.2)
[2019-01-07 05:35] LABS: URINE PROTEIN:CREAT RATIO 0.66 (0.00-0.14)
[2019-01-07 05:46] LABS: LYMPHOCYTE 59 % (20.0-51.0); NEUTROPHILS 39 % (42.0-75.2); PLATELET ESTIMATE NORMAL (NORMAL)
[2019-01-07 05:47] LABS: HYPOCHROMIA 1+
--- NOTE | 2019-01-07 06:50 | NUR ---
RECEIVED REPORT FROM VERONICA JOY. PT SITTING UP IN BED WATCHING TV. FLUIDS INFUSING EASILY. PRECEDEX AT 0.2MCG/KG/HR. FC PATENT AND DRAINING TO GRAVITY. PT ON RA. CALL LIGHT WITHIN REACH. PT CALM AT THIS TIME AND COOPERATIVE WITH CARE.
--- NOTE | 2019-01-07 07:34 | NUR ---
DR NELSON AT BEDSIDE FOR ASSESSMENT. NOTIFIED OF K LEVEL 3.3, ORDERS TO DSICUSS WITH DR BUCKNER. WILL ADDRESS WHEN DR BUCKNER MAKES ROUNDS.
[2019-01-07 08:00] VITALS: BP 141/78; PULSE 56; TEMP 98.2
--- NOTE | 2019-01-07 08:30 | NUR ---
PT COOPERATIVE WITH HAIR TO BE WASHED AND GOWN CHANGED. PT REMAINS CALM BUT DOES MAKE OCCASSIONAL AGGRESSIVE STATEMENT BUT THEN CORRECTS SELF. CALL LIGHT WITHIN REACH.
[2019-01-07 08:48] LABS: MAGNESIUM 1.4 mg/dL (1.6-2.3); PHOSPHOROUS 6.1 mg/dL (2.5-4.5)
--- NOTE | 2019-01-07 09:38 | NUR ---
DR JAMESON AT BEDSIDE FOR ASSESSMENT.
--- NOTE | 2019-01-07 11:10 | NUR ---
PRECEDEX OFF AT THIS TIME. WILL CONTINUE TO MONITOR PATIENT FOR INAPPROPRIATE AGGRESSIVE BEHAVIOR. PT CALM AT THIS TIME AND APPEARS TO BE TRYING TO REST. CALL LIGHT WITHIN REACH. FC PATENT.
--- NOTE | 2019-01-07 11:20 | NUR ---
DR WADSWORTH AT BEDSIDE. ADDRESSED PAIN MEDICATION, ADMISSION STATUS, NEURO STATUS WITH PRECEDEX, AND THERAPY CONSULTS.
[2019-01-07 12:00] VITALS: BP 147/86; PULSE 59; TEMP 97.9
--- NOTE | 2019-01-07 13:08 | NUR ---
SPOKE WITH INFECTION DISEASE PHSYICIAN VIA TELEPHONE AND UPDATED ON PT'S STATUS. NO NEW ORDERS.
--- NOTE | 2019-01-07 14:44 | NUR ---
SPEECH THERAPY AT BEDSIDE FOR ASSESSMENT.
--- NOTE | 2019-01-07 15:30 | NUR ---
PT ASSISTED UP TO RECLINER BY PHYSICAL THERAPY WITH GAIT BELT.
--- NOTE | 2019-01-07 15:46 | NUR ---
[employer] student met with the patient's nurse to discuss patient's agitation and orientation because the patient wants to update his DPOA-HC. The patient's nurse asked him orientation questions. The patient did not respond appropriately. media services director will continue to follow.
[2019-01-07 16:00] VITALS: BP 160/87; PULSE 90; TEMP 98
--- NOTE | 2019-01-07 16:45 | NUR ---
UPON ENTERING ROOM PT SAYS "THANK YOU FOR NOT LETTING ME LEAVE." AFTER HELPING PT BACK TO BED, PT BECOMES AGGRESSIVE AND ASKS TO LEAVE AGAIN. NURSE STATES TO PT "IT IS NOT A GOOD IDEA FOR YOU TO LEAVE, YOU ARE NOT STABLE ENOUGH OR CAN EVEN WALK OUT OF THE ROOM." PT STATES, "WELL GET ME A GUN." AND LAUGHS ABOUT THAT STATEMENT. EXPLAINED TO PT THAT TALK IS INAPPROPRIATE. SPOKE WITH DR WADSWORTH ABOUT PT'S REQUEST FOR A NICOTINE PATCH, NEW ORDERS.
--- NOTE | 2019-01-07 16:55 | NUR ---
PT ASSISTED BACK TO BED X2 ASSIST. BED ALARM SET. VSS. PT MAKES A FEW AGGRESSIVE STATEMENT BUT DOES FOLLOW SIMPLE DIRECTIONS.
[2019-01-07 20:00] VITALS: BP 151/91; PULSE 91; TEMP 98
[2019-01-07 20:20] LABS: C-ANCA 24 U/mL (0-99)
[2019-01-08] VITALS (223 sets, daily range): BP systolic 134–158; BP diastolic 71–95; PULSE 76–97; TEMP 97.5–98.6; O2SAT 91–98
[2019-01-08 06:16] LABS: MEAN CELL VOLUME 91 fl (80.0-100.0); MEAN CORPUSCULAR HGB CONC 32 g/dl (33.0-37.0); MEAN PLATELET VOLUME 9.7 fl (7.4-10.4); PLATELET COUNT 365 K/mm3 (130-400); RED BLOOD COUNT 2.52 M/mm3 (4.20-5.60); REDCELL DISTRIBUTION WIDTH-CV 12.2 % (11.5-14.5)
[2019-01-08 06:34] LABS: CALCIUM 7.7 mg/dL (8.4-10.2); CREATININE, serum 2.55 (0.66-1.25); MAGNESIUM 1.9 mg/dL (1.6-2.3); POTASSIUM 3.6 mmol/L (3.4-5.0)
[2019-01-08 06:36] LABS: HEMATOCRIT 22.9 % (42.0-52.0); HEMOGLOBIN 7.3 g/dl (13.5-18.0); MEAN CORPUSCULAR HEMOGLOBIN 29 pg (27.0-31.0)
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
[2019-01-08 07:22] LABS: LYMPHOCYTE 60 % (20.0-51.0); NEUTROPHILS 39 % (42.0-75.2); PLATELET ESTIMATE NORMAL (NORMAL)
[2019-01-08 07:23] LABS: ANISOCYTOSIS 2+; HYPOCHROMIA 1+
--- NOTE | 2019-01-08 08:20 | NUR ---
PT ASSISTED X1 TO RECLINER. PT IS WOBBLY WHEN FIRST STANDING BUT THEN AMBUALTES WITH EASE. FC PATENT AND DRAINING TO GRAVITY. IV INFUSING EASILY. VSS. CALL LIGHT WITHIN REACH AND CHAIR ALARM IN PLACE.
--- NOTE | 2019-01-08 09:15 | NUR ---
PHYSICAL THERAPY AT BEDSIDE AND ASSISTS PT 300 FT WITH PORTABLE TELEMETRY ON. PT ABLE TO AMBUALTE EASILY WITH NO S/S OF DISTRESS NOTED. NOTED OCCASSIONALLY STUMBLING BUT IS ABLE TO STAY UPRIGHT WITH THERAPY'S HELP. PT PLACED BACK IN RECLINER WITH CHAIR ALARM AND CALL LIGHT WITHIN REACH. PLACED BACK ON BEDSIDE CONTINUOUS MONITORING.
--- NOTE | 2019-01-08 09:50 | NUR ---
DR VILLEGAS AND TEAM AT BEDSIDE FOR ASSESSMENT. NEW ORDERS RECEIVED. DISCUSSED WITH TEAM ABOUT PT'S CONCERN ABOUT HIS SON AND COURT DATE AND HOW PT IS GETTING NERVOUS AND ANXIOUS AND IS THREATENING TO LEAVE. DR DONNELLY STATES PT IS NOT WELL ENOUGH TO LEAVE YET. CASE MANAGEMENT CONTACTED FLO FUNES TO CONFIRM COURT DATE, STATES COURT FOR PT'S SON IS ON 2018 AT 10AM. PT NOTIFIED. PT APPEARS TO CALM DOWN BUT IS HESITANT AND WOULD LIKE TO TALK TO COURT HIMSELF, CALLED COURT HOUSE BACK SO PT COULD SPEAK TO THEM. PT ABLE TO CONFIRM HIMSELF ABOUT COURT DATE AND TIME. PT BECOMES APOLOGETIC TO NURSE AND IS MORE COOPERATIVE WITH CARE. PT REQUESTS ASSISTANCE BACK TO BED SO HE CAN TAKE A NAP BECAUSE HE FEELS LIKE HE CAN FINALLY REST AT THIS TIME. BEDALARM PLACED. CALL LIGHT WITHIN REACH. IV FLUIDS DCd AT THIS TIME PER ORDERS.
--- NOTE | 2019-01-08 11:27 | NUR ---
REPORT GIVEN TO VERONICA HOLLOWAY. AWAITING FOR 354 TO BE CLEANED AND THEN WILL DENICE PT. PT NOTIFIED OF POC. VERBALIZED UNDERSTANDING.
--- NOTE | 2019-01-08 12:35 | NUR ---
PT TRANSPORTED VIA TO [facility]. VERONICA HOLLOWAY AT BEDSIDE. NO ACUTE S/S OF DISTRESS NOTED DURING TRANSPORT. PT CALM UPON TRANSPORT.
--- NOTE | 2019-01-08 12:50 | NUR ---
Patient came from ICU to Medical room 354 at this time, he is alert/oriented, vitals signs stable, denies pain or discomfort, he has a lunch tray in his room and said he is "starving" and is now eating his lunch, denies other needs
--- NOTE | 2019-01-08 13:32 | NUR ---
Pt concerned about son Bell's court appearance. Pt thought son had court today but in fact he has court next SundayJan 15 at [facility] at 10:00. The son is a minor. I called the court house and spoke with the digital court reporter at phone [phone].
[2019-01-09 03:34] VITALS: BP 125/68; PULSE 98
--- NOTE | 2019-01-09 07:00 | NUR ---
Received report from overnight nurse Anne MARTIN. Reported with primary nurse Perry MARTIN. Assisted with patient cares from [phone].
[2019-01-09 08:10] VITALS: BP 136/78; PULSE 65; TEMP 97.6
--- NOTE | 2019-01-09 09:00 | NUR ---
Pt awake and alert upon entry, no C/O pain at this time, shift assessments complete, expresses desire to leave, recommended to Pt that he discuss with physician, left Pt call light in reach, bed in lowest position, bed alarm on.
--- NOTE | 2019-01-09 09:09 | NUR ---
Pt has no specific problems tonight. Drifts from one subject to another. Did complain of his neck hurting. Tinajero cath to DD with clear yellow urine. PICC line intact to L upper arm. Pt request Nicotene patch removed from left shoulder.
[2019-01-09 09:26] LABS: MEAN CELL VOLUME 92 fl (80.0-100.0); MEAN CORPUSCULAR HGB CONC 31 g/dl (33.0-37.0); MEAN PLATELET VOLUME 9.4 fl (7.4-10.4); PLATELET COUNT 322 K/mm3 (130-400); RED BLOOD COUNT 2.48 M/mm3 (4.20-5.60); REDCELL DISTRIBUTION WIDTH-CV 12.5 % (11.5-14.5)
--- NOTE | 2019-01-09 09:30 | NUR ---
Pt refused Nicoderm Patch. Patient stated it makes him crazy. Informed patient of the rationale for the patch r/t nicotine withdrawal and increased agitation. Patient stated that he only smoked half a cigarette a day and continued to refuse the patch.
[2019-01-09 09:32] LABS: HEMATOCRIT 22.8 % (42.0-52.0); HEMOGLOBIN 7.1 g/dl (13.5-18.0); MEAN CORPUSCULAR HEMOGLOBIN 29 pg (27.0-31.0)
[2019-01-09 09:40] LABS: CALCIUM 7.7 mg/dL (8.4-10.2); CREATININE, serum 2.34 (0.66-1.25); POTASSIUM 3.3 mmol/L (3.4-5.0)
[2019-01-09 09:52] LABS: BAND 1 % (0-10); LYMPHOCYTE 62 % (20.0-51.0); NEUTROPHILS 37 % (42.0-75.2); PLATELET ESTIMATE NORMAL (NORMAL)
--- NOTE | 2019-01-09 11:55 | NUR ---
OUMAR attended clinical rounds. The hospitalist discussed the benefits of having a renal biopsy done. The patient reports that he unsure of what to do and would like for the hospitalist to contact his daughter, Sofya. OUMAR was able to obtain a phone number for his daughter, Bryanna Stover (ph#[phone]). OUMAR contacted Bryanna. Bryanna reports that Sofya is her sister and that they are in contact and involved in the patient's care. Bryanna reports that their is seven immediate children of his that are involved (Bryanna, Jennifer, Orestes, Judy, Aura, Kd, and Ann Marie) and that they are aware that the patient would like to complete a new DPOA-HC. Bryanna reports that her and her sister will come up to the hospital tomorrown morning to help the patient fill out a new DPOA-HC. OUMAR provided the hospitalist, Dr. Hummel, with Bryanna's phone number. PT/OT have worked with the patient and are recommending placement. OUMAR to follow up with the patient and patient's family and will continue to follow.
[2019-01-09 12:30] VITALS: BP 176/72; PULSE 90; TEMP 98.4
--- NOTE | 2019-01-09 13:55 | NUR ---
Primary nurse was assisted with [phone] patient care by [employer] student Ramiro Knight and [employer] instructor Vanda Dudley RN-BC.
--- NOTE | 2019-01-09 16:41 | NUR ---
SW met with the patient to review discharge plan and to update on his daughters coming in tomorrow morning. Psych met with the patient and recommend that he follow up with his PCP to assess mental status to decide if the patient needs psychiatric follow-up. SW discussed PT/OT's recommendation of post-acute rehab. The patient reports that he really isn't interested in going anywhere for rehab. He states that he used to exercise and would rather swim for therapy. SW discussed home health and outpatient therapy. The patient reports that he needs to think about these options. SW also discussed getting established with a PCP. SW provided the patient with a list of PCP's in the [place] area. The patient reports that he would like to think about this too and to discuss the options with his daughters. SW to continue to follow.
[2019-01-09 16:55] VITALS: BP 158/84; PULSE 84; TEMP 98.5
--- NOTE | 2019-01-09 18:52 | NUR ---
Pt resting in room, has not been scoring high on the detox scale, had shower today and has been acting appropriately, no C/O pain today, VS have remained stable.
--- NOTE | 2019-01-09 19:00 | NUR ---
REPORT RECEIVED FROM VERONICA PITTMAN; CARE OF PT ASSUMED AT THIS TIME. BEDSIDE ROUNDS COMPLETED AND PT NEEDS MET.
[2019-01-09 19:39] LABS: URINE PROTEIN:CREAT RATIO 1.26 (0.00-0.14)
[2019-01-09 20:20] VITALS: BP 173/92; PULSE 95; TEMP 99.1
--- NOTE | 2019-01-09 21:30 | NUR ---
PT AWAKE, ALERT, OX3; DENIES PAIN AT THIS TIME. PT IS VERY TALKATIVE. STATES HIS PONCE CATHETER CAME OUT TODAY. PONCE IS IN PLACE AT THIS TIME DRAINING CLEAR, YELLOW URINE. PT SITTING UP ON SIDE OF BED, REQUESTS TO USE BR. PT AMBULATES TO BR WITH WOBBLY GAIT AND X1 ASSIST. BED LINENS CHANGED AT THIS TIME. PT GOWN CHANGED. PT ASSISTED BACK TO BED, STATES HE HAD A SOFT BM. PICC LINE IN PLACE TO L UPPER ARM, DRESSING HAS SOME BLOOD UNDERNEATH, DOES NOT APPEAR TO BE LEAKING OR DISLODGED. SITE IS WRAPPED IN COBAN. LS CTA, HR REG, NO ABDOMINAL DISTENTION NOTED. MEDICATIONS GIVEN AT THIS TIME, PT REFUSES HIS SEROQUEL, STATES THAT HE "CAN'T TAKE IT, MAKES ME CRAZY." ASSURED PT I WOULD LET HIS DOCTOR KNOW HIS CONCERNS. CALL LIGHT WITHIN REACH.
--- NOTE | 2019-01-09 23:43 | NUR ---
NOTIFIED RICHIE WARE APRN REGARDING PT'S ALCOHOL DETOX PROTOCOL SCORE HAS BEEN ZERO AND REPORTED PT IS NOT RECEIVING VTE PROPHYLAXIS. NO NEW ORDERS RECEIVED.
[2019-01-10 00:08] VITALS: BP 168/75; PULSE 90; TEMP 98.3
[2019-01-10 01:51] VITALS: BP 146/78; PULSE 89; TEMP 98.5
--- NOTE | 2019-01-10 02:29 | NUR ---
PT AWAKE AND AGITATED, STATING HE IS "GETTING OUT OF HERE" AND "I WON'T BE BUFFALOED BY SOME WOMAN". PT MAKING PHONE CALLS REQUESTING A RIDE HOME AT 0800. TALKED WITH PT AND ANSWERED QUESTIONS. PT CALM AND SITTING IN BED WATCHING TV. STATES HE IS HUNGRY. PROVIDED PT WITH ICE CREAM. CALL LIGHT WITHIN REACH.
[2019-01-10 04:17] VITALS: BP 113/60; PULSE 78; TEMP 97.8
--- NOTE | 2019-01-10 05:25 | NUR ---
PT HAS NOT SLEPT TONIGHT, HAS BEEN SITTING UP IN BED WATCHING TV AND HYPERTALKATIVE WITH ANY ONE THAT COMES INTO PT ROOM. PT HAS REPORTED INCREASED APPETITE AND BEEN PROVIDED WITH MULTIPLE SNACKS AND MEALS FROM FAMILY THROUGHOUT THE SHIFT. PT IS OX3 ALTHOUGH IS DISORGANIZED IN THOUGHT PROCESS. AT TIMES PT HAS BECOME AGITATED AND HAS STATED THAT HE WILL BE LEAVING TODAY. PT DID REST QUIETLY AT SHORT PERIODS THROUGH THE NIGHT. PT IS CURRENTLY REQUESTING A SHOWER THIS AM. CALL LIGHT WITHIN REACH AND BED EXIT ALARM ACTIVATED.
[2019-01-10 06:18] LABS: MEAN CELL VOLUME 92 fl (80.0-100.0); MEAN CORPUSCULAR HGB CONC 31 g/dl (33.0-37.0); PLATELET COUNT 361 K/mm3 (130-400); RED BLOOD COUNT 2.67 M/mm3 (4.20-5.60); REDCELL DISTRIBUTION WIDTH-CV 12.4 % (11.5-14.5)
[2019-01-10 06:21] LABS: CALCIUM 7.6 mg/dL (8.4-10.2); CREATININE, serum 2.27 (0.66-1.25); POTASSIUM 4.1 mmol/L (3.4-5.0)
[2019-01-10 06:33] LABS: HEMATOCRIT 24.6 % (42.0-52.0); HEMOGLOBIN 7.7 g/dl (13.5-18.0); MEAN CORPUSCULAR HEMOGLOBIN 29 pg (27.0-31.0)
[2019-01-10 06:35] VITALS: BP 125/68; PULSE 71; TEMP 98.3
--- NOTE | 2019-01-10 07:09 | NUR ---
REPORT GIVEN TO VERONICA PITTMAN.
--- NOTE | 2019-01-10 08:30 | NUR ---
Pt in bed resting, no C/O pain at this time, appropriate, shift assessments complete, left Pt call light in reach, bed in lowest position.
[2019-01-10 09:25] LABS: HYPOCHROMIA 2+; LYMPHOCYTE 66 % (20.0-51.0); NEUTROPHILS 33 % (42.0-75.2); PLATELET ESTIMATE NORMAL (NORMAL)
[2019-01-10 10:29] LABS: HIV 1/2 Antibodies Non-Reactive; HIV-1p24 Antigen Non-Reactive
--- NOTE | 2019-01-10 13:54 | NUR ---
Primary nurse was assisted with [id number] patient care by [employer] student Ramiro Knight and and [employer] instructor Vanda Dudley RN-.
--- NOTE | 2019-01-10 14:15 | NUR ---
PICC intact left upper arm with sterile dressing change done with insertion site cleansed with chloraprep x 1, chlorhexidine impregnated disk applied, skin prep, stat lock, and tegaderm applied. no signs or symptoms of IV complications noted. no concerns voiced. re-wrapped with ashley to protect catheter.
--- NOTE | 2019-01-10 16:08 | NUR ---
OUMAR attended clinical rounds. The patient was wanting to leave AMA. The hospitalist discussed his prognosis and the risks of leaving. The patient was still insistent on leaving. The patient's daughter (Bryanna), the general manager road production, and hospitalist then met with the patient again. The patient was agreeable to stay after having his son, Kd, come up to the hospital. OUMAR then followed up with the patient about establishing a PCP. The patient requested that SW contact his daughter, Bryanna. OUMAR then contacted Bryanna. Bryanna reports that she would be interested in him getting set up with Dr. Harry Cason at the [facility]. OUMAR also discussed PT/OT's recommendation of post-acute rehab. Bryanna reports that she wants what is best for the patient long-term and thinks that rehab would be good for him. Bryanna expressed her concerns with the patient and his family. She states that her siblings are drug addicts. She states that she and the patient's brother, Rashaad, are wanting to become the patient's DPOA-HC and requested that SW leave a DPOA-HC form for her to help the patient fill out this weekend. Bryanna requested that the form be left outside of the room, due to not trusting her sister (Jennifer). SW placed a DPOA-HC form on the patient's chart and updated the patient's nurse of the above information. OUMAR then followed up with the patient. The patient reports that he would be agreeable to being set up with Dr. Cason, but is unsure of agreeing to post-acute rehab. OUMAR contacted the [facility]. The [facility] reports that the patient had been set up with Dr. Jordan and Dr. Cason in the past and he had five no call no shows and has been dismissed from their clinic. OUMAR to inform the patient and patient's daughter and will continue to follow.
[2019-01-10] MEDS ORDERED: PREDNISONE10 MG PO ×3 (16:13→16:15)
--- NOTE | 2019-01-10 16:41 | NUR ---
The patient is wanting to leave [place] again. OUMAR contacted and updated the patient's daughter, Bryanna. Bryanna asked that OUMAR give the DPOA-HC form to her brother, Kd. OUMAR provided the DPOA-HC form to Kd. The patient informed OUMAR that Kd has been homeless. Kd and Bryanna confirmed this. OUMAR provided a [facility] Resource Packet to Kd. The patient reports that if he does leave he plans to get a trailer in [place] for the patient. OUMAR then collaborated with RN, Haven. Haven asked the patient about finding and getting him set up with a PCP. He reports that he does not want to get set up with anyone. SW to continue to follow.
[2019-01-10] MEDS ORDERED: FLOMAX 0.40.4 MG/CAP PO (17:05)
--- NOTE | 2019-01-10 17:40 | NUR ---
Pt discharged AMA, refused all interventions further treatment, did not want to set up with a PCP nor follow up appointment with Dr. Sethi. Pt did not want transportation home, Pt walked off of premises.
== END 2019-01-10 17:40 | disposition left against medical advice (07) | DRG 682 ==
LOC: COL.ER 13:43 → MEDICAL 16:07 → ICU 16:07 → MEDICAL 01-01 16:29 → ICU 01-03 11:18 → MEDICAL 01-08 12:45
PROVIDERS: Emergency Medicine; Internal Medicine Nephrology; Internal Medicine Pulmonary Disease; Nurse Practitioner Family; Physician Assistant; ADMIT Student in an Organized Health Care Education/Training Program
PROC: 02HV33Z Insertion of Infusion Device into Superior Vena Cava, Percutaneous Approach (ICD-10-PCS; principal; 2019-01-03)
DX: N17.9 Acute kidney failure, unspecified (principal); G93.41 Metabolic encephalopathy; N39.0 Urinary tract infection, site not specified; F10.239 Alcohol dependence with withdrawal, unspecified; E87.3 Alkalosis; C91.10 Chronic lymphocytic leukemia of B-cell type not having achieved remission; E87.5 Hyperkalemia; D64.9 Anemia, unspecified; N40.1 Benign prostatic hyperplasia with lower urinary tract symptoms; N31.9 Neuromuscular dysfunction of bladder, unspecified; E83.42 Hypomagnesemia; M54.2 Cervicalgia; R33.8 Other retention of urine; E87.6 Hypokalemia; E83.51 Hypocalcemia; N13.30 Unspecified hydronephrosis; Z87.440 Personal history of urinary (tract) infections; Z87.891 Personal history of nicotine dependence; Z88.5 Allergy status to narcotic agent
CPT/HCPCS: 99223-AI; 99232-AI; 99233-AI; A4216; C1751; C9113; G0463; J0610; J0696; J1644; J1815; J1940; J2060; J2185; J2270; J2405; J2930; J3411; J3475; J7030; J7040; J7050; J7512

== ENCOUNTER 2019-09-09 03:32 | Inpatient (IN) | payer MEDICARE, MEDICAID ==
[~2019-09-09] VITALS: Ht 175.3 cm; Wt 86.6 kg
[2019-09-09] VITALS (190 sets, daily range): BP systolic 117–138; BP diastolic 80–99; PULSE 100–106; TEMP 97.8–98.7; O2SAT 84–100
[~2019-09-09 03:32] MED LIST changes: +PREDNISONE10 MG PO
[2019-09-09 04:25] LABS: BASO % 0.5 % (0.0-2.0); EOS # 0.1 (0.0-0.7); EOS % 1.1 % (0-4.0); GRAN # 3.5 (1.4-6.5); GRAN % 42.4 % (42.2-75.2); LYMPH # 3.8 (1.2-3.4); LYMPH % 47.1 % (20.0-51.0); MEAN CELL VOLUME 94 fl (80.0-100.0); MEAN CORPUSCULAR HGB CONC 30 g/dl (33.0-37.0); MEAN PLATELET VOLUME 9.9 fl (7.4-10.4); MONO # 0.7 (0.1-0.6); MONO % 8.7 % (1.7-9.3); PLATELET COUNT 206 K/mm3 (130-400); RED BLOOD COUNT 2.75 M/mm3 (4.20-5.60); REDCELL DISTRIBUTION WIDTH-CV 14.1 % (11.5-14.5)
[2019-09-09 04:26] LABS: HEMATOCRIT 25.8 % (42.0-52.0); HEMOGLOBIN 7.7 g/dl (13.5-18.0); MEAN CORPUSCULAR HEMOGLOBIN 28 pg (27.0-31.0)
[2019-09-09 04:27] LABS: INR 1.3 (0.8-3.0); PROTHROMBIN TIME 14.7 SECONDS (9.7-12.8)
[2019-09-09 04:35] LABS: ALBUMIN 3.5 gm/dL (3.5-5.0); BILIRUBIN,TOTAL 0.5 mg/dL (0.0-1.0); C-REACTIVE PROTEIN 3.5 mg/dL (0.0-0.9); CREATININE, serum 5.71 (0.66-1.25); POTASSIUM 4.8 mmol/L (3.4-5.0); TOTAL PROTEIN 6.3 gm/dL (6.4-8.2)
[2019-09-09 04:36] LABS: CALCIUM 5.6 mg/dL (8.4-10.2)
[2019-09-09 04:43] LABS: TROPONIN-I 0.028 ng/mL (0.000-0.035)
[2019-09-09 05:33] LABS: MAGNESIUM 1.3 mg/dL (1.6-2.3)
[2019-09-09 06:15] LABS: CREATINE KINASE 1187 U/L (55-170); LACTATE DEHYDROGENASE 1476 U/L (313-618)
[2019-09-09 06:57] LABS: COLLECTION METHOD CATHETER
[2019-09-09 07:03] LABS: PH 5 (5-8); SQUAMOUS EPITHELIAL None Seen /hpf; URINE APPEARANCE Clear; URINE BACTERIA None Seen /hpf; URINE BILIRUBIN Negative (NEGATIVE); URINE BLOOD 1+ (NEGATIVE); URINE COLOR Straw; URINE GLUCOSE Negative (NEGATIVE); URINE KETONE Negative (NEGATIVE); URINE LEUKOCYTE ESTERASE Negative (NEGATIVE); URINE NITRATE Negative (NEGATIVE); URINE PROTEIN(semi-quant) Negative (NEGATIVE); URINE RBC 0-2 /hpf; URINE UROBILINOGEN Negative (NEGATIVE)
[2019-09-09 07:13] LABS: TRICYCLIC ANTIDEPRESS URINE NEGATIVE
[2019-09-09 07:46] LABS: CREATININE, serum 5.48 (0.66-1.25); FRACTIONAL EXCRETION OF NA+ 5.7 %
[2019-09-09 08:24] LABS: CREATININE, serum 5.48 (0.66-1.25); POTASSIUM 4.8 mmol/L (3.4-5.0)
--- NOTE | 2019-09-09 11:12 | NUR ---
The patient is on COVID precautions and pending results. SW attempted to contact the patient's room phone to discuss discharge plan. The patient did not answer. SW attempted to contact the patient's brother, Rashaad (ph#[phone]), to complete intake. SW left him a voicemail. SW then contacted the patient's daughter, Bryanna (ph#[phone]). Bryanna reports that the patient lives in [place]. She states that the patient "has like eighteen children." She states that there are nine immediate children: Her, Jennifer, Orestes, Judy, Aura, Kd, Bell, Luiza, and Gigi. She reports that a lot of her siblings have addictions. She states that she believes that her brother's, Kd and Bell, are living with the patient. She reports that the patient never completed a new DPOA-HC. She reports that she believes the patient's brother, Rashaad, would be the best person to be the patient's DPOA-HC. She reports that she will reach out to Rashaad. This SW had met with the patient back in February,. This SW had set the patient up with PCP, Dr. Donavan Oden, and secured the patient an appointment with him on 03/10/19. SW contacted Dr. Oden's office. The executive receptionist reports that the patient did not go that appointment. SW to follow up with the patient and will continue to follow.
--- NOTE | 2019-09-09 19:35 | NUR ---
Patient is alert and partially oriented. coarse lung sound. generalized edema. 2+ edema on lower extremity. Patient complain of chronic cramp on his right hand and chest. outer diameter technician confirmed no current abnormal rhythm. 3000mL urine output. One medium bowel movement.
--- NOTE | 2019-09-09 20:30 | NUR ---
Initial shift assessment done- sitting at egde of bed- alert/drowsy- oriented to person/place but has some off answers -clouded,, wants his oxygen on-o2 sats 93% on RA- put on 2 L/nc at this time, VSLior Kilgore with clear yellow urine, generalized edema, and 2-3+ edema of lower extremities,
[2019-09-10] VITALS (7 sets, daily range): BP systolic 104–131; BP diastolic 70–78; PULSE 84–100; TEMP 97.7–99.4
--- NOTE | 2019-09-10 05:21 | NUR ---
No changes throughout the night- on fall risk, drowsy and impulsive at times--covid came back negative during the night. Lior with very large outputs,[id number] out my shift thus far,
[2019-09-10 06:40] LABS: BASO % 0.3 % (0.0-2.0); EOS # 0.2 (0.0-0.7); GRAN # 3.5 (1.4-6.5); LYMPH # 4.4 (1.2-3.4); LYMPH % 48.8 % (20.0-51.0); MEAN CELL VOLUME 91 fl (80.0-100.0); MEAN CORPUSCULAR HGB CONC 31 g/dl (33.0-37.0); MEAN PLATELET VOLUME 10.4 fl (7.4-10.4); MONO # 0.9 (0.1-0.6); MONO % 9.7 % (1.7-9.3); PLATELET COUNT 207 K/mm3 (130-400); RED BLOOD COUNT 2.91 M/mm3 (4.20-5.60); REDCELL DISTRIBUTION WIDTH-CV 13.7 % (11.5-14.5)
[2019-09-10 06:47] LABS: HEMATOCRIT 26.4 % (42.0-52.0); HEMOGLOBIN 8.2 g/dl (13.5-18.0); MEAN CORPUSCULAR HEMOGLOBIN 28 pg (27.0-31.0)
[2019-09-10 06:49] LABS: ALBUMIN 3.3 gm/dL (3.5-5.0); BILIRUBIN,TOTAL 0.6 mg/dL (0.0-1.0); CALCIUM 6.6 mg/dL (8.4-10.2); CREATININE, serum 5.54 (0.66-1.25); MAGNESIUM 1.9 mg/dL (1.6-2.3); POTASSIUM 4.9 mmol/L (3.4-5.0); TOTAL PROTEIN 6.1 gm/dL (6.4-8.2)
--- NOTE | 2019-09-10 08:20 | NUR ---
Patient is drowzy, high appetite. complain of cramps all over is body. 2+ edema in his bilateral extremity.
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
--- NOTE | 2019-09-10 12:40 | NUR ---
Pt brought to ICU room 5 and placed on monitor. Currently SR 90's. Consent obtained for pacemaker placement. 20G IV started to left forearm with good blood return noted. Pt prepped for procedure by technology lab teacher staff and taken to technology lab teacher at this time.
--- NOTE | 2019-09-10 12:59 | NUR ---
SEE MERGE DOCUMENTATION FOR MEDICATION ADMINISTRATION AND INTRA/POST PROCEDURE SEDATION ASSESSMENTS.
--- NOTE | 2019-09-10 13:21 | NUR ---
patient was transferred to icu because of thirs degree heart block. Dr Quispe spoke with patient about putting in Pace maker. Patient wants to speak to family member before he can approve.
--- NOTE | 2019-09-10 20:00 | NUR ---
received report from VERONICA Lake. Alert and oriented to self, place, and time. c/o pain to left upper chest to pacemaker insertion site and left arm. PRN tylenol adminsitered. Left arm placed in sling, ice applied while awake. Dressing to pacemaker site without complications. INT to RFA and LFA intact, flushed, dressing CDI. Tele monitor intact. Meds adminsitered as ordered. Tinajero in place, secured to RL draining clear yellow urine. Pt ate 100% of dinner and requested for snacks. Needs met at this tiem. Call light within reach.
--- NOTE | 2019-09-10 20:05 | NUR ---
Patient complain of 2/10 pain on his left hand. Pacemaker was implanted on his left hand, hand currently in sling. Patient was advise to avoid using his right hand.
--- NOTE | 2019-09-10 22:00 | NUR ---
Pt son, Orestes, called and states that pt request to be transferredn to [facility] tomorrow and requested to start paperwork this evening. Informed Orestes and pt that this will need to be discussed with doctors in AM. Orestes went further to state that once his heart is cleared at this hospital, pt would like to have his kidney issues treated at [facility]. decorating and assembly supervisor informed. Will endorse to day RN.
[2019-09-11] VITALS (7 sets, daily range): BP systolic 101–129; BP diastolic 57–90; PULSE 86–104; TEMP 97.4–99.3
[2019-09-11 07:13] LABS: CALCIUM 6.5 mg/dL (8.4-10.2); CREATININE, serum 5.27 (0.66-1.25); MAGNESIUM 1.5 mg/dL (1.6-2.3); PHOSPHOROUS 5.7 mg/dL (2.5-4.5); POTASSIUM 4.6 mmol/L (3.4-5.0)
[2019-09-11 07:38] LABS: BASO % 0.5 % (0.0-2.0); EOS # 0.3 (0.0-0.7); GRAN # 4.1 (1.4-6.5); GRAN % 46.9 % (42.2-75.2); LYMPH # 3.5 (1.2-3.4); LYMPH % 40.3 % (20.0-51.0); MEAN CELL VOLUME 91 fl (80.0-100.0); MEAN CORPUSCULAR HGB CONC 31 g/dl (33.0-37.0); MEAN PLATELET VOLUME 10.4 fl (7.4-10.4); MONO # 0.8 (0.1-0.6); MONO % 9.1 % (1.7-9.3); PLATELET COUNT 202 K/mm3 (130-400); RED BLOOD COUNT 2.93 M/mm3 (4.20-5.60); REDCELL DISTRIBUTION WIDTH-CV 13.8 % (11.5-14.5)
--- NOTE | 2019-09-11 07:39 | NUR ---
Report given to VERONICA Chauhan.
[2019-09-11 07:45] LABS: HEMATOCRIT 26.6 % (42.0-52.0); HEMOGLOBIN 8.3 g/dl (13.5-18.0); MEAN CORPUSCULAR HEMOGLOBIN 28 pg (27.0-31.0)
--- NOTE | 2019-09-11 09:23 | NUR ---
MEDICATIONS GIVEN, MEDICATIONS HUNG, ASSESSMENT PERFORMED. PT SAYS RANDOM WORDS, PT SAYS HE ISN'T IN PAIN BUT CRIES OUT IN PAIN WHEN HE IS TOUCHED. TYLENOL ADMINISTERED. PACEMAKER SITE DRESSING TAKEN OFF BY CARDIOLOGY. PT KNOWS WHERE HE IS, KEEPS WANTING TO LEAVE TO "GO BACK TO THE FARM AND THEN COME RIGHT BACK". VEIN MAPPING PERFORMED. PT HUNGRY AND ASKS FOR SNACKS CONSISTENTLY EVEN THOUGH EATING 100% OF MEALS. NO OTHER NEEDS AT THIS TIME.
--- NOTE | 2019-09-11 16:16 | NUR ---
PT COMPLAINING OF PAIN WHEN MOVING HIS BODY, UNABLE TO GIVE ME A PAIN NUMBER. TYLENOL ADMINISTERED WITH 4PM MEDS.
--- NOTE | 2019-09-11 16:43 | NUR ---
Director Of Strategic Initiatives met with patient to review discharge plan. SW also reviewed PT/OT recommendation for home health vs post acute rehab. Patient states he is going home with his daughter, Bryanna upon discharge and was interested in Home Health. Patient requested SW contact Bryanna for choice on HH. OUMAR contacted Bryanna who confirmed patient is going to return home with her upon discharge as long as he doesn't leave AMA. Bryanna is in agreement with services and selected [facility] from Medicare.gov list of agencies. OUMAR faxed referral and will continue to follow.
--- NOTE | 2019-09-11 18:18 | NUR ---
PT LETHARGIC DURING SHIFT, WOULD WAKE WHEN NAME IS CALLED, PT JUST KEPT STATING "I'M SO TIRED". SUPPOSED TO HAVE FISTULA PLACEMENT, AND ANNAMARIA AFTER DIALYSIS STARTS. PT'S DAUGHTER SAID HE IS MOVING IN WITH HER TO HELP KEEP HIM CLEAN. PT HAS INC APPETITE. NO OTHER NEEDS AT THIS TIME.
--- NOTE | 2019-09-11 18:54 | NUR ---
REPORT GIVEN TO KAREY MARTIN
--- NOTE | 2019-09-11 19:45 | NUR ---
Assessment complete. Resting in bed,eyes closed. Rouses easily to voice. Moans frequently, but does not describe a particular pain, reports uncomfortable in general. Requests a soda, provided. Denies other needs at this time.
[2019-09-12] VITALS (11 sets, daily range): BP systolic 91–126; BP diastolic 44–84; PULSE 77–101; TEMP 97.4–98.7
--- NOTE | 2019-09-12 07:35 | NUR ---
this nurse and mold shifter nurse entered room @ 0720 for shift report. pt was just finishing eating his beakfast. he was joking about the fact that he wasn't supposed to eat due to his fistula placement today. he stated "I was hungry". NPO sign on door/slot. AOX4. steward intact and draining. bed alarms on.
[2019-09-12 10:29] LABS: MEAN CELL VOLUME 89 fl (80.0-100.0); MEAN CORPUSCULAR HGB CONC 32 g/dl (33.0-37.0); MEAN PLATELET VOLUME 10.1 fl (7.4-10.4); PLATELET COUNT 227 K/mm3 (130-400); RED BLOOD COUNT 3.11 M/mm3 (4.20-5.60); REDCELL DISTRIBUTION WIDTH-CV 13.8 % (11.5-14.5)
[2019-09-12 10:30] LABS: HEMATOCRIT 27.6 % (42.0-52.0); HEMOGLOBIN 8.8 g/dl (13.5-18.0); MEAN CORPUSCULAR HEMOGLOBIN 28 pg (27.0-31.0)
[2019-09-12 10:34] LABS: ALBUMIN 3.2 gm/dL (3.5-5.0); BILIRUBIN,TOTAL 0.5 mg/dL (0.0-1.0); CALCIUM 7.3 mg/dL (8.4-10.2); CREATININE, serum 4.83 (0.66-1.25); POTASSIUM 4.2 mmol/L (3.4-5.0); TOTAL PROTEIN 6.2 gm/dL (6.4-8.2)
[2019-09-12 11:16] LABS: EOSINOPHIL 2 % (0-4); LYMPHOCYTE 57 % (20.0-51.0); NEUTROPHILS 39 % (42.0-75.2); PLATELET ESTIMATE NORMAL (NORMAL)
[2019-09-12 11:18] LABS: SPHEROCYTE 1+
[2019-09-12 11:19] LABS: ANISOCYTOSIS 1+
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
--- NOTE | 2019-09-12 11:45 | NUR ---
Padding Machine Operator spoke with Rosa at [facility] who advised they can accept referral. Rosa advised she obtained authorization from their service administrator as patient's urine drug screen was positive for Methamphetamines upon admission. Rosa requested that if patient discharges over the weekend for the office to be contacted. OUMAR will continue to follow.
[2019-09-12 12:16] LABS: MAGNESIUM 1.9 mg/dL (1.6-2.3); PHOSPHOROUS 5.5 mg/dL (2.5-4.5)
--- NOTE | 2019-09-12 16:32 | NUR ---
Uncrater contacted Bryanna, patient's daughter to provide update that [facility] can accept patient for services. SW to continue to follow.
--- NOTE | 2019-09-12 17:07 | NUR ---
PT ARRIVED FROM SURGERY @ 1655 ACCOMPANIED BY NURSE. VERY SLEEPY BUT AROUSABLE. VSS CHARTED. SURGICAL SITE TO RT WRIST APPROX SURGICAL GLUE.
--- NOTE | 2019-09-13 03:03 | NUR ---
PATIENT WAS ADIMIT THAT HE WAS GOING TO LEAVE. FRESH WATER GIVEN TO THE PATIENT AND HE WAS EDUCATED THAT WITH HIS RENAL/DIALYSIS DIET, WE ARE RESTRICTED ON WHAT WE CAN GIVE HIM. EXPLAINED TO PATIENT THAT HE HAD A DINNER TRAY, SNACK, AND SANDWICH BOX. HE TOLD ME HE WAS GOING TO LEAVE. DR KABA WAS NOTIFIED THAT THE PATIENT WANTED TO LEAVE. HE TOLD ME TO LET HIM LEAVE IF HE WANTED TOO AND HE WASNT GOING TO COME IN AND TRY AND STOP HIM. CHARGE NURSE IN TO TALK TO PATIENT AND HE SAID HE WAS AT THE TRAIN STATION AND WE NEEDED TO WAIT UNTIL THE MORNING FOR HIM TO LEAVE
[2019-09-13 04:23] VITALS: BP 119/77; PULSE 88; TEMP 97.4
--- NOTE | 2019-09-13 05:51 | NUR ---
PATIENT WAS PLEASANT TO START THE SHIFT. PATIENT THEN STARTED YELLING IN HIS ROOM. UPON ENTERING HIS ROOM, PATIENT WAS YELLING AT SOMEONE TO GET OUT OF HIS HOUSE. PATIENT WAS ALSO ON THE PHONE WITH A PERSON NAMED "NATACHA" AND YELLING AT THEM TO GET THE PEOPLE IN HIS HOUSE OF THERE. PATIENT WAS ALERT AND ORIENTATED AT THAT TIME. PATIENT THEN WENT TO SLEEP. WOKE UP AGAIN AND WAS YELLING AND GROWNING IN HIS ROOM. UPON CHECKING ON THE PATIENT HE WAS READY TO GO HOME AND GET OUT OF HERE. FINALLY AFTER CALLING THE DOCTOR AND CHARGE NURSE TALKING TO HIM HE AGREED TO STAYING FOR THE REMAINDER OF THE NIGHT. 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 PATIENT WAS THEN MOANING AND YELLING IN HIS ROOM. UPON CHECKING ON HIM HE WAS SITTING ON THE EDGE OF THE BED COMPLAINING. PRN PAIN MEDICATIONS WERE GIVEN TO HELP THE PATIENT WITH SOME BODY ACHES AND PAINS HE WAS HAVING. PATIENT THEN WENT BACK TO SLEEP. WILL REPORT OFF TO DAY SHIFT UPON THEIR ARRIVAL
[2019-09-13 08:00] VITALS: BP 125/67; PULSE 88; TEMP 98.4
--- NOTE | 2019-09-13 11:19 | NUR ---
PT VERY AGGITATED THIS MORNING. WAS SLEEPY IN AM AND PARTIALLY ORIENTED. REPORTS NOT SLEEPING MUCH OVERNIGHT. ATE 100% BREAKFAST THEN WENT BACK TO SLEEP. BECAME BELLIGEROUS WITH NURSING STAFF AND LAB BY REFUSING SERVICES AND DEMANDING TO BE LEFT ALONE. DAUGHTER CALLED DEMANDING PT BE TRANSFERED TO [facility], REFERED TO DOCTOR. PAUL. MOVES ALL EXTREMITIES. ABLE TO MAKE NEEDS KNOWN.
[2019-09-13 12:30] VITALS: BP 118/55; PULSE 87; TEMP 97.4
--- NOTE | 2019-09-13 13:53 | NUR ---
SW received a call from patient's daughter Bryanna who was upset over care that patient had been receiving. SW took down daughter's phone number to do some research and promised to call her back (number provided was [phone]). SW corresponded with charge nurse and SW hydrochloric area supervisor, and called Patient's daughter back. SW attempted to offer resolution, however daughter continued with rebuttals. SW indicated that patient may be well encough to discharge tomorrow, and patients daughter continued to yell, and decline all efforts SW provided for resolution. SW validated patients daughters feelings and informed patients daughter that if she needed further assistance she could contact the charge nurse, and the call ended.
[2019-09-13 14:24] LABS: HEMOGLOBIN 10.3 g/dl (13.5-18.0); MEAN CELL VOLUME 90 fl (80.0-100.0); MEAN CORPUSCULAR HEMOGLOBIN 29 pg (27.0-31.0); MEAN CORPUSCULAR HGB CONC 32 g/dl (33.0-37.0); MEAN PLATELET VOLUME 10.2 fl (7.4-10.4); PLATELET COUNT 272 K/mm3 (130-400); REDCELL DISTRIBUTION WIDTH-CV 13.7 % (11.5-14.5)
[2019-09-13 14:26] LABS: HEMATOCRIT 32.3 % (42.0-52.0)
[2019-09-13 14:34] LABS: CREATININE, serum 4.88 (0.66-1.25); MAGNESIUM 1.8 mg/dL (1.6-2.3); PHOSPHOROUS 6.8 mg/dL (2.5-4.5); POTASSIUM 4.3 mmol/L (3.4-5.0)
[2019-09-13 15:04] LABS: BAND 1 % (0-10); EOSINOPHIL 2 % (0-4); LYMPHOCYTE 60 % (20.0-51.0); NEUTROPHILS 30 % (42.0-75.2)
[2019-09-13 15:06] LABS: HYPOCHROMIA 2+; PLATELET ESTIMATE NORMAL (NORMAL)
[2019-09-13 15:07] LABS: OVALOCYTES 1+
[2019-09-13 16:28] VITALS: BP 106/67; BP 141/118; PULSE 96
[2019-09-13 19:34] VITALS: BP 111/63; PULSE 90; TEMP 97.5
[2019-09-13 23:53] VITALS: BP 101/55; PULSE 94; TEMP 97.3
--- NOTE | 2019-09-14 03:30 | NUR ---
Patient has rested well throughout the night. Noted to talk in his sleep, and sometimes yells out. Tinajero present draining clear, yellow urine. INT to left forearm flushes with ease. Continues on heparin injection for VTE. PRN [place] given for right hand pain and states he also has "pain everywhere". Patient doesn't complain of anymore pain after medication given. Bed alarm on. Will continue to monitor patient.
--- NOTE | 2019-09-14 04:22 | NUR ---
Staff attempted to obtain 0400 vitals and patient became very angry and started yelling at POND SCALER. He knocked everything off his bedside table and was yelling, "I can't believe your waking me up at 4 in the morning and poking me. Get out of here." Patient left alone. Will continue to monitor behaviors.
--- NOTE | 2019-09-14 08:00 | NUR ---
SEE MORNING SHIFT ASSESSMENT.
--- NOTE | 2019-09-14 08:30 | NUR ---
Pt yelling for help and for the doctor to come in the room. Doctor in different room at this time. Pt's primary nurse currently transferring other pt. This nurse enters room and asks how to help. Pt yells, "Get the doctor in here now! I'm having cramps!" This nurse asks where the cramps are located and what can we do to help them. Pt states, "you should know where my cramps are, get the doctor in here." This nurse asks pt to stop yelling and talk to me about the cramping d/t primary nurse and doctor currently in other rooms. Pt sits up on side of bed quickly and shakes bed, cursing, yelling "You get the fuck out of my room!"
[2019-09-14 08:45] LABS: HEMOGLOBIN 10.5 g/dl (13.5-18.0); MEAN CELL VOLUME 89 fl (80.0-100.0); MEAN CORPUSCULAR HEMOGLOBIN 28 pg (27.0-31.0); MEAN CORPUSCULAR HGB CONC 32 g/dl (33.0-37.0); MEAN PLATELET VOLUME 10.3 fl (7.4-10.4); PLATELET COUNT 293 K/mm3 (130-400); RED BLOOD COUNT 3.71 M/mm3 (4.20-5.60); REDCELL DISTRIBUTION WIDTH-CV 13.9 % (11.5-14.5)
[2019-09-14 08:52] LABS: CALCIUM 8.2 mg/dL (8.4-10.2); CREATININE, serum 4.86 (0.66-1.25); MAGNESIUM 1.9 mg/dL (1.6-2.3); PHOSPHOROUS 7.8 mg/dL (2.5-4.5); POTASSIUM 4.7 mmol/L (3.4-5.0)
[2019-09-14 10:58] LABS: BAND 2 % (0-10); BASOPHIL 2 % (0-2); EOSINOPHIL 3 % (0-4); NEUTROPHILS 17 % (42.0-75.2); PLATELET ESTIMATE NORMAL (NORMAL)
[2019-09-14 11:04] LABS: LYMPHOCYTE 73 % (20.0-51.0)
[2019-09-14 11:05] LABS: HYPOCHROMIA 1+; OVALOCYTES 1+
[2019-09-14] MEDS ORDERED: COREG 3.123.125 MG/T PO (11:13)
[2019-09-14] MEDS ORDERED: CLEOCIN HCL300 MG PO (11:13)
[2019-09-14] MEDS ORDERED: BUMEX2 MG PO (11:14)
[2019-09-14] MEDS ORDERED: TUMS ULTRA ST1000 MG PO (11:14)
[2019-09-14] MEDS ORDERED: ROCALTROL0.5 MCG PO (11:14)
--- NOTE | 2019-09-14 12:40 | NUR ---
PATIENT TAKEN TO PERSONAL VEHICLE VIA WHEELCHAIR BY MEDICAL STAFF. PATIENT DISCHARGED.
--- NOTE | 2019-09-14 12:40 | NUR ---
PATIENT TAKEN TO PERSONAL VEHICLE VIA WHEELCHAIR BY MEDICAL STAFF. PATIENT DISCHARGED.
--- NOTE | 2019-09-14 12:50 | NUR ---
DISCHARGE INSTRUCTIONS REVIEWED WITH PATIENT. QUESTIONS SOUGHT AND ANSWERED. PATIENTS LEFT FOREARM INT DISCONTINUED PER PENDING DISCHARGE. TIP INTACT. PATIENT TOLERATED WELL. PONCE CATHETER SWITCHED FROM LARGE BAG TO A LEG BAG. PATIENT EDUCATED ON PONCE CATHETER CARE. PATIENT STATES THAT TALKING TO HIS GIRLFRIEND ON THE PHONE IS MORE IMPORTANT TO HIM THAN DISCHARGE INFORMATION. CALL LIGHT WITHIN REACH. MEAL TRAY AT THE BEDSIDE. WAITING FOR PATIENTS RIDE TO ARRIVE.
--- NOTE | 2019-09-14 13:41 | NUR ---
Prescriptions called to [facility] per family request over phone after pt discharged.
--- NOTE | 2019-09-16 10:25 | NUR ---
OUMAR contacted [facility] to follow-up about discharge orders. [facility] did receive the [facility] orders. There are no additional needs at this time.
== END 2019-09-14 12:40 | disposition home health service (06) | DRG 242 ==
LOC: COL.ER 03:32 → MEDICAL 04:41 → IMCU 04:41 → EU 11:15 → MEDICAL 15:32
PROVIDERS: Emergency Medicine; Nurse Practitioner Family; Physician Assistant; ADMIT Internal Medicine
PROC: 0JH606Z Insertion of Pacemaker, Dual Chamber into Chest Subcutaneous Tissue and Fascia, Open Approach (ICD-10-PCS; principal; 2019-09-09)
PROC: 02H63JZ Insertion of Pacemaker Lead into Right Atrium, Percutaneous Approach (ICD-10-PCS; 2019-09-09)
PROC: 02HK3JZ Insertion of Pacemaker Lead into Right Ventricle, Percutaneous Approach (ICD-10-PCS; 2019-09-09)
PROC: 05JY0ZZ Inspection of Upper Vein, Open Approach (ICD-10-PCS; 2019-09-12)
DX: I44.2 Atrioventricular block, complete (principal); I50.21 Acute systolic (congestive) heart failure; N17.9 Acute kidney failure, unspecified; N31.9 Neuromuscular dysfunction of bladder, unspecified; R33.9 Retention of urine, unspecified; R60.1 Generalized edema; R05 Cough; R74.0 Nonspecific elevation of levels of transaminase and lactic acid dehydrogenase [LDH]; R55 Syncope and collapse; D63.1 Anemia in chronic kidney disease; F15.10 Other stimulant abuse, uncomplicated; N18.9 Chronic kidney disease, unspecified; F17.210 Nicotine dependence, cigarettes, uncomplicated; Z88.2 Allergy status to sulfonamides; Z20.818 Contact with and (suspected) exposure to other bacterial communicable diseases; E21.3 Hyperparathyroidism, unspecified
CPT/HCPCS: 99223-AI; 99232-AI; 99233-AI; 99239; J0610; J1644; J2250; J2405; J2704; J3010; J3370; J3475; J7030; J7050

== ENCOUNTER 2019-10-13 12:50 | Emergency (ER) | payer MEDICARE, MEDICAID ==
[~2019-10-13] VITALS: Ht 182.9 cm; Wt 79.5 kg
[~2019-10-13 12:50] MED LIST changes: +BUMEX 1MG TA1 MG/TA1 PO; +BUMEX2 MG PO; +CLEOCIN HCL300 MG PO; +COREG 3.123.125 MG/T PO; +OMNICEF 300MG300 MG PO; +ROCALTROL0.5 MCG PO; +TUMS ULTRA ST1000 MG PO
[2019-10-13 13:04] VITALS: TEMP 97.8
[2019-10-13 13:32] LABS: COLLECTION METHOD CATHETER
[2019-10-13 13:33] LABS: MEAN CELL VOLUME 89 fl (80.0-100.0); MEAN CORPUSCULAR HGB CONC 31 g/dl (33.0-37.0); MEAN PLATELET VOLUME 9.4 fl (7.4-10.4); PLATELET COUNT 227 K/mm3 (130-400); RED BLOOD COUNT 3.05 M/mm3 (4.20-5.60); REDCELL DISTRIBUTION WIDTH-CV 14.2 % (11.5-14.5)
[2019-10-13 13:36] LABS: HEMATOCRIT 27.1 % (42.0-52.0); HEMOGLOBIN 8.5 g/dl (13.5-18.0); MEAN CORPUSCULAR HEMOGLOBIN 28 pg (27.0-31.0); PROTHROMBIN TIME 11.5 SECONDS (9.7-12.8)
[2019-10-13 13:38] LABS: PARTIAL THROMBOPLASTIN TIME 31.9 SECONDS (26.0-37.0)
[2019-10-13 13:42] LABS: ALANINE AMINOTRANSFERASE 47 U/L (4-49); ALBUMIN 3.9 gm/dL (3.5-5.0); ALKALINE PHOSPHATASE 109 U/L (50-136); ANION GAP 9 mmol/L (7-16); AST,SGOT 40 U/L (15-37); BILIRUBIN,TOTAL 0.4 mg/dL (0.0-1.0); BLOOD UREA NITROGEN 74 mg/dL (9-20); C-REACTIVE PROTEIN < 0.5 mg/dL (0.0-0.9); CARBON DIOXIDE 23 mmol/L (22-30); CHLORIDE 106 mmol/L (98-107); CREATININE, serum 4.15 (0.66-1.25); GLUCOSE 117 mg/dL (74-106); MAGNESIUM 1.9 mg/dL (1.6-2.3); POTASSIUM 4.4 mmol/L (3.4-5.0); SODIUM 138 mmol/L (137-145); TOTAL PROTEIN 7.1 gm/dL (6.4-8.2)
[2019-10-13 13:56] LABS: TROPONIN-I < 0.012 ng/mL (0.000-0.035)
[2019-10-13 14:18] LABS: BUDDING YEAST Present /hpf; PH 5 (5-8); SQUAMOUS EPITHELIAL None Seen /hpf; URINE APPEARANCE Hazy; URINE BACTERIA Rare /hpf; URINE BILIRUBIN Negative (NEGATIVE); URINE BLOOD Negative (NEGATIVE); URINE COLOR Yellow; URINE GLUCOSE Negative (NEGATIVE); URINE KETONE Negative (NEGATIVE); URINE LEUKOCYTE ESTERASE 2+ (NEGATIVE); URINE NITRATE Negative (NEGATIVE); URINE PROTEIN(semi-quant) Negative (NEGATIVE); URINE UROBILINOGEN Negative (NEGATIVE)
[2019-10-13 14:32] LABS: EOSINOPHIL 2 % (0-4); NEUTROPHILS 18 % (42.0-75.2)
[2019-10-13 14:34] LABS: PLATELET ESTIMATE NORMAL (NORMAL)
[2019-10-13 14:35] LABS: LYMPHOCYTE 79 % (20.0-51.0)
[2019-10-13 14:37] LABS: ANISOCYTOSIS 1+; HYPOCHROMIA 1+
[2019-10-13 14:38] LABS: OVALOCYTES 1+
[2019-10-13 18:12] VITALS: BP 132/82; PULSE 72
[2019-10-14 09:04] LABS: PATHOLOGY DIFF REVIEW OK +
== END 2019-10-13 18:12 | disposition home or self-care (01) ==
LOC: COL.ER 12:50
PROVIDERS: Emergency Medicine
DX: N39.0 Urinary tract infection, site not specified (principal); N18.9 Chronic kidney disease, unspecified; I50.9 Heart failure, unspecified; D72.829 Elevated white blood cell count, unspecified; Z88.2 Allergy status to sulfonamides; Z85.72 Personal history of non-Hodgkin lymphomas
CPT/HCPCS: J0696

== ENCOUNTER 2019-12-14 15:40 | Emergency (ER) | payer MEDICARE, MEDICAID ==
[~2019-12-14] VITALS: Ht 182.9 cm; Wt 68.2 kg
[2019-12-14 15:44] VITALS: TEMP 98.4
[2019-12-14 16:28] LABS: MEAN CELL VOLUME 91 fl (80.0-100.0); MEAN CORPUSCULAR HGB CONC 31 g/dl (33.0-37.0); MEAN PLATELET VOLUME 8.7 fl (7.4-10.4); PLATELET COUNT 375 K/mm3 (130-400); RED BLOOD COUNT 3.51 M/mm3 (4.20-5.60)
[2019-12-14 16:39] LABS: HEMATOCRIT 31.8 % (42.0-52.0); HEMOGLOBIN 9.8 g/dl (13.5-18.0); MEAN CORPUSCULAR HEMOGLOBIN 28 pg (27.0-31.0)
[2019-12-14 16:42] LABS: ALBUMIN 3.7 gm/dL (3.5-5.0); BILIRUBIN,TOTAL 0.3 mg/dL (0.0-1.0); CREATININE, serum 3.79 (0.66-1.25); POTASSIUM 4.1 mmol/L (3.4-5.0); TOTAL PROTEIN 7.3 gm/dL (6.4-8.2)
[2019-12-14 16:59] LABS: HYPOCHROMIA 1+; LYMPHOCYTE 80 % (20.0-51.0); NEUTROPHILS 17 % (42.0-75.2); PLATELET ESTIMATE NORMAL (NORMAL)
[2019-12-14 17:00] LABS: OVALOCYTES 1+
[2019-12-14 17:13] LABS: COLLECTION METHOD IN
[2019-12-14 17:22] LABS: AMORPHOUS CRYSTAL Present /uL; PH 6 (5-8); SQUAMOUS EPITHELIAL 0-2 /hpf; URINE APPEARANCE Turbid; URINE BACTERIA Moderate /hpf; URINE BILIRUBIN Negative (NEGATIVE); URINE BLOOD 1+ (NEGATIVE); URINE COLOR Yellow; URINE GLUCOSE Negative (NEGATIVE); URINE KETONE Negative (NEGATIVE); URINE LEUKOCYTE ESTERASE 3+ (NEGATIVE); URINE NITRATE Negative (NEGATIVE); URINE PROTEIN(semi-quant) 2+ (NEGATIVE); URINE RBC 20-50 /hpf; URINE UROBILINOGEN Negative (NEGATIVE)
[2019-12-14] MEDS ORDERED: OMNICEF 300MG300 MG PO (17:48)
[2019-12-14 17:50] VITALS: BP 131/78; PULSE 77
== END 2019-12-14 18:11 | disposition home or self-care (01) ==
LOC: COL.ER 15:40
PROVIDERS: Family Medicine
DX: T83.098A Other mechanical complication of other urinary catheter, initial encounter (principal); N39.0 Urinary tract infection, site not specified

== ENCOUNTER 2020-04-13 09:52 | Emergency (ER) | payer MEDICARE, MEDICAID ==
[~2020-04-13] VITALS: Ht 182.9 cm; Wt 81.8 kg
[2020-04-13 10:16] VITALS: BP 155/95; PULSE 67; TEMP 967.9
[2020-04-13] MEDS ORDERED: COREG 3.123.125 MG/T PO (10:51)
[2020-04-13] MEDS ORDERED: BUMEX 1MG TA1 MG/TA1 PO (10:51)
== END 2020-04-13 11:00 | disposition left against medical advice (07) ==
LOC: COL.ER 09:52
DX: D72.829 Elevated white blood cell count, unspecified (principal); Z53.29 Procedure and treatment not carried out because of patient's decision for other reasons; Z95.0 Presence of cardiac pacemaker; Z88.2 Allergy status to sulfonamides

== ENCOUNTER → 2020-07-28 | Outpatient (REF) | LOC: ZLAB.WCH 09:43 | DX: Z01.89 Encounter for other specified special examinations (principal) ==

== ENCOUNTER 2020-11-28 17:11 | Inpatient (IN) | payer MEDICARE, MEDICAID ==
[~2020-11-28] VITALS: Ht 182.9 cm; Wt 76.7 kg
[2020-11-28 17:57] LABS: MEAN CELL VOLUME 97 fl (80.0-100.0); MEAN CORPUSCULAR HGB CONC 30 g/dl (33.0-37.0); MEAN PLATELET VOLUME 9.1 fl (7.4-10.4); PLATELET COUNT 204 K/mm3 (130-400); RED BLOOD COUNT 2.97 M/mm3 (4.20-5.60); REDCELL DISTRIBUTION WIDTH-CV 13.7 % (11.5-14.5)
[2020-11-28 18:04] LABS: ALBUMIN 3.9 gm/dL (3.5-5.0); BILIRUBIN,TOTAL 0.3 mg/dL (0.0-1.0); CALCIUM 7.5 mg/dL (8.4-10.2); CREATININE, serum 4.48 (0.66-1.25); POTASSIUM 5.3 mmol/L (3.4-5.0); TOTAL PROTEIN 6.9 gm/dL (6.4-8.2)
[2020-11-28 18:05] LABS: HEMATOCRIT 28.7 % (42.0-52.0); HEMOGLOBIN 8.6 g/dl (13.5-18.0); MEAN CORPUSCULAR HEMOGLOBIN 29 pg (27.0-31.0)
[2020-11-28 18:23] LABS: EOSINOPHIL 1 % (0-4); LYMPHOCYTE 86 % (20.0-51.0); NEUTROPHILS 11 % (42.0-75.2)
[2020-11-28 18:24] LABS: C-REACTIVE PROTEIN 0.7 mg/dL (0.0-0.9); HYPOCHROMIA 3+; PLATELET ESTIMATE NORMAL (NORMAL)
[2020-11-28 20:04] LABS: COLLECTION METHOD IN
[2020-11-28 20:11] LABS: PH 8 (5-8); SQUAMOUS EPITHELIAL None Seen /hpf; URINE APPEARANCE Clear; URINE BACTERIA Rare /hpf; URINE BILIRUBIN Negative (NEGATIVE); URINE BLOOD Negative (NEGATIVE); URINE COLOR Yellow; URINE GLUCOSE Negative (NEGATIVE); URINE KETONE Negative (NEGATIVE); URINE LEUKOCYTE ESTERASE 2+ (NEGATIVE); URINE NITRATE Positive (NEGATIVE); URINE PROTEIN(semi-quant) 1+ (NEGATIVE); URINE RBC 0-2 /hpf; URINE UROBILINOGEN Negative (NEGATIVE)
[2020-11-28 21:37] VITALS: BP 136/69; PULSE 71; TEMP 97.6
--- NOTE | 2020-11-28 22:17 | NUR ---
Pt just got admitted to the floor and seems pretty tired. Pain rated 0/10. Vss. Daughter was contacted because the pt forgot his phone's password. Will continue to monitor.
[2020-11-28 22:57] VITALS: BP 143/81; PULSE 64; TEMP 97.7
[2020-11-29 03:14] VITALS: BP 142/74; PULSE 79; TEMP 97.7
[2020-11-29 08:59] VITALS: BP 140/71; PULSE 76; TEMP 97.6
--- NOTE | 2020-11-29 09:06 | NUR ---
Patient in bed resting. Alert and oriented x 3. Assessment complete. Denies pain at this time. HD cath noted to right chest with redness noted at insertion site. Dressing to HD cath changed at this time. Tinajero to leg bag changed to DD bag, patient states Tinajero was placed at [facility] approximatly 8wks ago. Pacer noted to right chest. Patient states he has not been to dialysis for about 6 weeks since having an episode at dialysis where he blacked out and does not remember what happened. Denies further needs at this time.
[2020-11-29 11:34] VITALS: BP 152/87; PULSE 79; TEMP 98.1
[2020-11-29 11:47] LABS: MEAN CELL VOLUME 96 fl (80.0-100.0); MEAN CORPUSCULAR HGB CONC 31 g/dl (33.0-37.0); MEAN PLATELET VOLUME 9.4 fl (7.4-10.4); PLATELET COUNT 190 K/mm3 (130-400); RED BLOOD COUNT 3.01 M/mm3 (4.20-5.60); REDCELL DISTRIBUTION WIDTH-CV 13.7 % (11.5-14.5)
[2020-11-29 11:49] LABS: HEMOGLOBIN 8.9 g/dl (13.5-18.0); MEAN CORPUSCULAR HEMOGLOBIN 30 pg (27.0-31.0)
[2020-11-29 11:56] LABS: ALBUMIN 3.6 gm/dL (3.5-5.0); CALCIUM 7.5 mg/dL (8.4-10.2); CREATININE, serum 4.23 (0.66-1.25); PHOSPHOROUS 4.4 mg/dL (2.5-4.5)
[2020-11-29 12:19] LABS: POTASSIUM 5.3 mmol/L (3.4-5.0)
[2020-11-29 12:22] LABS: EOSINOPHIL 1 % (0-4); NEUTROPHILS 13 % (42.0-75.2); OVALOCYTES 1+; PLATELET ESTIMATE NORMAL (NORMAL)
[2020-11-29 12:23] LABS: MICROCYTOSIS 1+
[2020-11-29 12:25] LABS: LYMPHOCYTE 86 % (20.0-51.0)
--- NOTE | 2020-11-29 14:05 | NUR ---
Tinajero catheter discontinued per orders. Patient states he does not want another catheter in. States he was able to go approximately 4 months without a catheter before having one placed at [facility]. Notified Garima, nephrology nurse. Will attempt voiding trial. If patient has continued retention, will place catheter.
--- NOTE | 2020-11-29 15:33 | NUR ---
Patient to dialysis by wheelchair.
[2020-11-29 17:03] VITALS: BP 150/94; PULSE 86; TEMP 98.1
--- NOTE | 2020-11-29 19:04 | NUR ---
PATIENT TOLERATED HIS HD TX WITH C/O BLE CRAMPING IN THE LAST 34 MINS & RESOLVED WITH 100 ML OF NSS. NO FLUID REMOVAL, GIVEN 70 ML. NEXT TX PENDING BLOODWORK.
[2020-11-29 19:45] VITALS: BP 133/72; PULSE 77; TEMP 98
--- NOTE | 2020-11-29 22:31 | NUR ---
Pt is really mad this evening.as i entered the room, he started to yell at me to give him his phone password which i don't know. He got out of bed and threaten to leave AMA. I called Dr. hanna to let him know that the pt wants to leave AMA, which he said he does not advise and if he really wants to leave he can leave.Pt asked for his daughter's number, i gave it to him and explained to him what the said, he seems cool off and laid down. I called Dr. hanna to let him know that the pt decided to stay and unable to reach him i left him a voicemail.
[2020-11-29 23:01] LABS: HEPATITIS B SURFACE ANTIBODY <2.0 (()); HEPATITIS B SURFACE ANTIGEN Negative (Negative); HEPATITIS C VIRUS ANTIBODY Negative (Negative)
[2020-11-30] VITALS (7 sets, daily range): BP systolic 133–159; BP diastolic 72–93; PULSE 65–83; TEMP 97.7–98.4
[2020-11-30 07:18] LABS: MEAN CELL VOLUME 93 fl (80.0-100.0); MEAN CORPUSCULAR HGB CONC 31 g/dl (33.0-37.0); MEAN PLATELET VOLUME 9.6 fl (7.4-10.4); PLATELET COUNT 187 K/mm3 (130-400); RED BLOOD COUNT 3.24 M/mm3 (4.20-5.60); REDCELL DISTRIBUTION WIDTH-CV 13.6 % (11.5-14.5)
[2020-11-30 07:20] LABS: ALBUMIN 3.7 gm/dL (3.5-5.0); CALCIUM 7.7 mg/dL (8.4-10.2); CREATININE, serum 2.88 (0.66-1.25); POTASSIUM 4.7 mmol/L (3.4-5.0)
[2020-11-30 07:25] LABS: HEMATOCRIT 30.2 % (42.0-52.0); HEMOGLOBIN 9.4 g/dl (13.5-18.0); MEAN CORPUSCULAR HEMOGLOBIN 29 pg (27.0-31.0)
[2020-11-30 07:55] LABS: EOSINOPHIL 1 % (0-4); LYMPHOCYTE 79 % (20.0-51.0); NEUTROPHILS 20 % (42.0-75.2); OVALOCYTES 1+; PLATELET ESTIMATE NORMAL (NORMAL)
--- NOTE | 2020-11-30 08:30 | NUR ---
Patient sitting up on edge of bed eating breakfast. Alert and oriented. Denies pain at this time. Voiding without difficulty since steward removal. HD cath to right chest. Denies further needs at this time.
--- NOTE | 2020-11-30 10:49 | NUR ---
Dr. Sethi in to see patient.
--- NOTE | 2020-11-30 15:23 | NUR ---
residential worker met with patient and his daughter, Bryanna, and assisted with completion of a durable power of estate attorney for health care, appointing his daughter, Bryanna, and a living will. Patient plans to return home upon discharge with no services. Daughter Bryanna states she will be assisting patient with any needs. Patient has Medicare and medicaid that will assist with any prescriptions.
--- NOTE | 2020-11-30 19:07 | NUR ---
Patient doing well throughout the day. Denies pain at this time. Dr. Sethi in to see patient at this time. Patient denies further needs at this time. Will report off to shift stacker.
--- NOTE | 2020-11-30 19:11 | NUR ---
REPORT RECEIVED FROM NURSE AGGARWAL. PATIENT IN BED TALKING IN THE PHONE. NO APPARENT DISTRESS NOTED. DENIES ANY DISCOMFORT AT THIS TIME. CALL LIGHT IN REACH. WILL CONTINUE TO MONITOR.
[2020-12-01 00:20] VITALS: BP 148/70; PULSE 76; TEMP 98.6
[2020-12-01 04:41] VITALS: BP 139/76; PULSE 71; TEMP 98.1
[2020-12-01 07:05] LABS: ALBUMIN 3.5 gm/dL (3.5-5.0); CALCIUM 7.9 mg/dL (8.4-10.2); CREATININE, serum 3.45 (0.66-1.25); POTASSIUM 4.8 mmol/L (3.4-5.0)
[2020-12-01 07:20] LABS: MEAN CELL VOLUME 94 fl (80.0-100.0); MEAN CORPUSCULAR HGB CONC 32 g/dl (33.0-37.0); MEAN PLATELET VOLUME 9.6 fl (7.4-10.4); PLATELET COUNT 191 K/mm3 (130-400); RED BLOOD COUNT 3.18 M/mm3 (4.20-5.60); REDCELL DISTRIBUTION WIDTH-CV 13.6 % (11.5-14.5)
[2020-12-01 07:21] LABS: HEMATOCRIT 29.8 % (42.0-52.0); HEMOGLOBIN 9.5 g/dl (13.5-18.0); MEAN CORPUSCULAR HEMOGLOBIN 30 pg (27.0-31.0)
[2020-12-01 07:38] LABS: PHOSPHOROUS 3.5 mg/dL (2.5-4.5)
[2020-12-01 07:41] VITALS: BP 143/81; PULSE 85; TEMP 97.9
[2020-12-01 07:48] LABS: BASOPHIL 1 % (0-2); EOSINOPHIL 2 % (0-4)
[2020-12-01 07:49] LABS: NEUTROPHILS 16 % (42.0-75.2)
[2020-12-01 07:50] LABS: LYMPHOCYTE 78 % (20.0-51.0); PLATELET ESTIMATE NORMAL (NORMAL)
[2020-12-01 07:51] LABS: HYPOCHROMIA 1+
--- NOTE | 2020-12-01 07:57 | NUR ---
Patient laying in bed, breakfast tray arrived. Patient independent sitting up at the edge of bed. Also states that he doesnt feel well, nurse informed the patient that he is getting dialysis at 0830. Patient is hoping that will make him feel better. A&Ox4. VSS. IV CDI. Dialysis catheter rt chest CDI. Contact precautions in place. No further needs expressed. Call light within reach
[2020-12-01] MEDS ORDERED: LEVAQUIN 5500 MG/TA1 PO (10:03)
[2020-12-01] MEDS ORDERED: BUMEX 1MG TA1 MG/TA1 PO (10:04)
[2020-12-01] MEDS ORDERED: COREG 3.123.125 MG/T PO (10:05)
[2020-12-01] MEDS ORDERED: FLOMAX 0.40.4 MG/CAP PO (10:05)
--- NOTE | 2020-12-01 13:18 | NUR ---
Patient tolerated his 2nd HD tx here with no fluid removal. Given 100 mL NSS fluid with HD tx. Next HD tx scheduled @ the [facility] on Sunday12/02/20 @ 0630.
--- NOTE | 2020-12-01 13:49 | NUR ---
Discharge paperwork reviewed with the patient. Patient verbalized an understanding to follow doctors orders and to go to dialysis. IV removed, tip intact. Gauze and coban applied. No further needs expressed from the patient. Patient transfered by wheelchair to ER entrance by nursing staff. Discharge paperwork and personal belongings with the patient.
--- NOTE | 2020-12-01 14:02 | NUR ---
Nurse walked with the patient to the ER entrance
== END 2020-12-01 14:03 | disposition home or self-care (01) | DRG 640 ==
LOC: COL.ER 17:11 → SURG 19:51
PROVIDERS: Nurse Practitioner; ADMIT Internal Medicine Nephrology
PROC: 5A1D70Z Performance of Urinary Filtration, Intermittent, Less than 6 Hours Per Day (ICD-10-PCS; principal; 2020-12-01)
DX: E87.5 Hyperkalemia (principal); N18.6 End stage renal disease; N39.0 Urinary tract infection, site not specified; R33.9 Retention of urine, unspecified; D63.1 Anemia in chronic kidney disease; Z20.822 Contact with and (suspected) exposure to COVID-19; F17.210 Nicotine dependence, cigarettes, uncomplicated
CPT/HCPCS: J1644; J1956; J3370; J7030; J7050

== ENCOUNTER 2020-12-18 19:31 | Emergency (ER) | payer MEDICARE, MEDICAID ==
[~2020-12-18] VITALS: Ht 180.3 cm; Wt 2.4 kg
[2020-12-18 19:51] VITALS: TEMP 98.6
[2020-12-18 20:59] LABS: COLLECTION METHOD CLEAN CATCH
[2020-12-18 21:06] LABS: HEMATOCRIT 30.3 % (42.0-52.0); HEMOGLOBIN 9.2 g/dl (13.5-18.0); MEAN CELL VOLUME 98 fl (80.0-100.0); MEAN CORPUSCULAR HEMOGLOBIN 30 pg (27.0-31.0); MEAN CORPUSCULAR HGB CONC 30 g/dl (33.0-37.0); MEAN PLATELET VOLUME 9.2 fl (7.4-10.4); PLATELET COUNT 150 K/mm3 (130-400); RED BLOOD COUNT 3.08 M/mm3 (4.20-5.60); REDCELL DISTRIBUTION WIDTH-CV 13.7 % (11.5-14.5)
[2020-12-18 21:08] LABS: PH 7 (5-8); SQUAMOUS EPITHELIAL 0-2 /hpf; URINE APPEARANCE Clear; URINE BACTERIA None Seen /hpf; URINE BILIRUBIN Negative (NEGATIVE); URINE BLOOD Negative (NEGATIVE); URINE COLOR Yellow; URINE GLUCOSE Negative (NEGATIVE); URINE KETONE Negative (NEGATIVE); URINE LEUKOCYTE ESTERASE Negative (NEGATIVE); URINE NITRATE Negative (NEGATIVE); URINE PROTEIN(semi-quant) 1+ (NEGATIVE); URINE RBC None Seen /hpf
[2020-12-18 21:15] LABS: ALBUMIN 4.1 gm/dL (3.5-5.0); BILIRUBIN,TOTAL 0.1 mg/dL (0.0-1.0); CALCIUM 7.5 mg/dL (8.4-10.2); CREATININE, serum 3.26 (0.66-1.25); POTASSIUM 4.3 mmol/L (3.4-5.0); TOTAL PROTEIN 6.9 gm/dL (6.4-8.2)
[2020-12-18 21:34] LABS: BAND 1 % (0-10); BASOPHIL 1 % (0-2); LYMPHOCYTE 86 % (20.0-51.0); NEUTROPHILS 9 % (42.0-75.2); PLATELET ESTIMATE NORMAL (NORMAL)
[2020-12-18 21:36] LABS: HYPOCHROMIA 1+; OVALOCYTES 1+; POIKILOCYTOSIS 1+
[2020-12-18 22:42] VITALS: BP 155/80; PULSE 78
[2020-12-20 08:15] LABS: PATHOLOGY DIFF REVIEW OK +
== END 2020-12-18 19:50 | disposition home or self-care (01) ==
LOC: COL.ER 19:31
PROVIDERS: Physician Assistant
DX: N18.6 End stage renal disease (principal); D63.1 Anemia in chronic kidney disease; D72.829 Elevated white blood cell count, unspecified

== ENCOUNTER 2020-12-21 12:36 | Day surgery (SDC) | payer MEDICARE, MEDICAID ==
[~2020-12-21] VITALS: Ht 182.9 cm; Wt 79.0 kg
[2020-12-21 13:36] LABS: TRICYCLIC ANTIDEPRESS URINE NEGATIVE
[2020-12-21 13:53] LABS: HEMOGLOBIN 10.2 g/dl (13.5-18.0); MEAN CORPUSCULAR HEMOGLOBIN 30 pg (27.0-31.0); MEAN CORPUSCULAR HGB CONC 32 g/dl (33.0-37.0); MEAN PLATELET VOLUME 9.5 fl (7.4-10.4); PLATELET COUNT 150 K/mm3 (130-400); RED BLOOD COUNT 3.39 M/mm3 (4.20-5.60); REDCELL DISTRIBUTION WIDTH-CV 13.5 % (11.5-14.5)
[2020-12-21 14:07] VITALS: BP 109/66; PULSE 71; TEMP 98.8
[2020-12-21 14:08] LABS: CALCIUM 8.2 mg/dL (8.4-10.2); CREATININE, serum 2.47 (0.66-1.25); POTASSIUM 4.9 mmol/L (3.4-5.0)
[2020-12-21 14:27] LABS: HEMATOCRIT 31.6 % (42.0-52.0); MEAN CELL VOLUME 93 fl (80.0-100.0)
--- NOTE | 2020-12-21 14:30 | NUR ---
1425:Received call from lab that patient had critically high WBC of 21.5. 1428: Notified Dr. Suarez of critical lab, results repeated back.
[2020-12-21 14:44] LABS: NEUTROPHILS 14 % (42.0-75.2)
[2020-12-21 14:45] LABS: ANISOCYTOSIS 1+; OVALOCYTES 1+; PLATELET ESTIMATE NORMAL (NORMAL)
[2020-12-21 14:46] LABS: LYMPHOCYTE 84 % (20.0-51.0)
--- NOTE | 2020-12-21 15:32 | NUR ---
1445: PATIENT BROUGHT BACK TO [facility] BY Wes BARAHONA CRNA. SURGERY POSTPONED.
--- NOTE | 2020-12-21 16:05 | NUR ---
1520: NOTIFIED BY DR. ALBERT THAT DAUGHTER IS REQUESTING QUARRYING MANAGER TO AID IN STRAIGHT CATH'ING SINCE PATIENT IS UNABLE TO DO IT HIMSELF. NOTIFIED BY QUARRYING MANAGER THAT THEY ARE UNABLE TO SET ANYTHING UP AT THIS TIME. 1540: NOTIFIED ADWOA (DAUGHTER) THAT QUARRYING MANAGER ARE UNABLE TO DO ANYTHING AT THIS TIME. DIRECTED DAUGHTER BACK TO MD'S OFFICE WHO INITIATED STRIAGHT CATHING FOR HELP. DISCUSSED FOLLOWING UP WITH NEPHROLOGY THIS WEEK AND THAT DR. ALBERT'S OFFICE WILL FOLLOW UP WELL. ADWOA VERBALIZED UNDERSTANDING TO INSTRUCTIONS.
== END 2020-12-21 16:15 | disposition home or self-care (01) ==
LOC: SDCO 12:36
PROVIDERS: Nurse Anesthetist, Certified Registered; Surgery
DX: N18.6 End stage renal disease (principal); Z53.8 Procedure and treatment not carried out for other reasons; F17.290 Nicotine dependence, other tobacco product, uncomplicated; F19.90 Other psychoactive substance use, unspecified, uncomplicated; Z20.822 Contact with and (suspected) exposure to COVID-19; Z79.899 Other long term (current) drug therapy
CPT/HCPCS: J0690; J2250; J3010

== ENCOUNTER 2021-03-19 15:35 | Emergency (ER) | payer MEDICARE, MEDICAID ==
[~2021-03-19] VITALS: Ht 180.3 cm; Wt 75.0 kg
[2021-03-19 15:41] VITALS: TEMP 97.7
[2021-03-19 16:12] LABS: COLLECTION METHOD CLEAN CATCH
[2021-03-19 16:19] LABS: PH 6 (5-8); SQUAMOUS EPITHELIAL None Seen /hpf (0-10); URINE APPEARANCE Clear (CLEAR/HAZY); URINE BACTERIA Rare (NONE SEEN); URINE BILIRUBIN Negative (NEGATIVE); URINE BLOOD Negative (NEGATIVE); URINE COLOR Yellow (YELLOW); URINE GLUCOSE Negative (NEGATIVE); URINE KETONE Negative (NEGATIVE); URINE LEUKOCYTE ESTERASE Trace (NEGATIVE); URINE NITRATE Negative (NEGATIVE); URINE PROTEIN(semi-quant) Negative (NEGATIVE); URINE RBC 0-2 /hpf (0-2); URINE UROBILINOGEN Negative (NEGATIVE)
[2021-03-19 17:35] VITALS: BP 142/89; PULSE 82
[2021-03-20] MEDS ORDERED: CEFTIN500 MG PO (19:13)
== END 2021-03-19 17:39 | disposition home or self-care (01) ==
LOC: COL.ER 15:35
PROVIDERS: Student in an Organized Health Care Education/Training Program
DX: D72.829 Elevated white blood cell count, unspecified (principal); N19 Unspecified kidney failure; F17.210 Nicotine dependence, cigarettes, uncomplicated

== ENCOUNTER 2021-03-20 17:54 | Emergency (ER) | payer MEDICARE, MEDICAID ==
[~2021-03-20] VITALS: Ht 180.3 cm; Wt 75.0 kg
[2021-03-20 18:07] VITALS: TEMP 98
[2021-03-20 18:34] LABS: COLLECTION METHOD CATHETER
[2021-03-20 19:05] LABS: PH 7 (5-8); SQUAMOUS EPITHELIAL 0-2 /hpf (0-10); URINE APPEARANCE Hazy (CLEAR/HAZY); URINE BACTERIA Rare (NONE SEEN); URINE BILIRUBIN Negative (NEGATIVE); URINE BLOOD 3+ (NEGATIVE); URINE COLOR Yellow (YELLOW); URINE GLUCOSE Negative (NEGATIVE); URINE KETONE Negative (NEGATIVE); URINE LEUKOCYTE ESTERASE 3+ (NEGATIVE); URINE NITRATE Negative (NEGATIVE); URINE PROTEIN(semi-quant) 2+ (NEGATIVE); URINE RBC >50 /hpf (0-2); URINE UROBILINOGEN Negative (NEGATIVE)
[2021-03-20] MEDS ORDERED: CEFTIN500 MG PO (19:13)
[2021-03-20 19:21] VITALS: BP 160/100; PULSE 84
== END 2021-03-20 19:21 | disposition home or self-care (01) ==
LOC: COL.ER 17:54
PROVIDERS: Emergency Medicine
DX: N39.0 Urinary tract infection, site not specified (principal); N40.1 Benign prostatic hyperplasia with lower urinary tract symptoms; N18.6 End stage renal disease; F17.200 Nicotine dependence, unspecified, uncomplicated; Z79.899 Other long term (current) drug therapy

== ENCOUNTER 2021-04-13 09:36 | Emergency (ER) | payer MEDICARE, MEDICAID ==
[~2021-04-13] VITALS: Ht 180.3 cm; Wt 86.0 kg
[~2021-04-13 09:36] MED LIST changes: +CEFTIN500 MG PO
[2021-04-13 09:37] VITALS: TEMP 96.8
[2021-04-13 10:01] LABS: COLLECTION METHOD CLEAN CATCH
[2021-04-13 10:09] LABS: HEMOGLOBIN 11.9 g/dl (13.5-18.0); MEAN CELL VOLUME 93 fl (80.0-100.0); MEAN CORPUSCULAR HEMOGLOBIN 30 pg (27-31); MEAN CORPUSCULAR HGB CONC 32 g/dl (33.0-37.0); MEAN PLATELET VOLUME 9.2 fl (7.4-10.4); PLATELET COUNT 196 K/mm3 (130-400); RED BLOOD COUNT 3.97 M/mm3 (4.20-5.60); REDCELL DISTRIBUTION WIDTH-CV 14.4 % (11.5-14.5)
[2021-04-13 10:11] LABS: HEMATOCRIT 36.8 % (42.0-52.0)
[2021-04-13 10:13] LABS: PH 6 (5-8); SQUAMOUS EPITHELIAL None Seen /hpf (0-10); URINE APPEARANCE Clear (CLEAR/HAZY); URINE BACTERIA None Seen /hpf (NONE SEEN); URINE BILIRUBIN Negative (NEGATIVE); URINE BLOOD Negative (NEGATIVE); URINE COLOR Yellow (YELLOW); URINE GLUCOSE Negative (NEGATIVE); URINE KETONE Negative (NEGATIVE); URINE LEUKOCYTE ESTERASE 3+ (NEGATIVE); URINE NITRATE Negative (NEGATIVE); URINE PROTEIN(semi-quant) Negative (NEGATIVE); URINE RBC 0-2 /hpf (0-2); URINE UROBILINOGEN Negative (NEGATIVE)
[2021-04-13 10:25] LABS: ALANINE AMINOTRANSFERASE 36 U/L (0-55); ALBUMIN 3.9 gm/dL (3.4-4.8); ALKALINE PHOSPHATASE 92 U/L (40-150); ANION GAP 10 mmol/L (7-16); AST,SGOT 25 U/L (5-34); BILIRUBIN,TOTAL 0.4 mg/dL (0.2-1.2); BLOOD UREA NITROGEN 35 mg/dL (8-26); CALCIUM 8.6 mg/dL (8.4-10.2); CARBON DIOXIDE 25 mmol/L (23-31); CHLORIDE 104 mmol/L (98-107); CREATININE, serum 3.03 mg/dL (0.72-1.25); GLUCOSE 99 mg/dL (70-99); POTASSIUM 4.5 mmol/L (3.5-4.5); SODIUM 139 mmol/L (136-145); TOTAL PROTEIN 7.3 gm/dL (6.2-8.1)
[2021-04-13 10:31] LABS: TROPONIN-I < 0.010 ng/mL (0.00-0.033)
[2021-04-13 10:34] LABS: ARTERIAL BLD GAS O2 SATURATION 97.7 % (92-100); ARTERIAL BLD GAS TCO2 CT 24.4; ARTERIAL BLOOD GAS BASE EXCESS 0.5 (-2-2); ARTERIAL BLOOD GAS HCO3 23.4 meq/L (22-26); ARTERIAL BLOOD GAS PCO2 32.2 mmHg (35-45); ARTERIAL BLOOD GAS PO2 93.8 mmHg (80-100); ARTERIAL BLOOD GAS pH 7.48 (7.35-7.45)
[2021-04-13 10:37] LABS: EOSINOPHIL 1 % (0-4); HYPOCHROMIA 1+; LYMPHOCYTE 84 % (20.0-51.0); NEUTROPHILS 16 % (42.0-75.2); PLATELET ESTIMATE NORMAL (NORMAL)
[2021-04-13 12:15] VITALS: BP 148/97; PULSE 89
== END 2021-04-13 12:15 | disposition home or self-care (01) ==
LOC: COL.ER 09:36
PROVIDERS: Emergency Medicine
DX: D72.829 Elevated white blood cell count, unspecified (principal); I95.9 Hypotension, unspecified; N18.6 End stage renal disease; M32.9 Systemic lupus erythematosus, unspecified; Z99.2 Dependence on renal dialysis; Z87.891 Personal history of nicotine dependence; Z79.899 Other long term (current) drug therapy

== ENCOUNTER 2021-05-19 18:12 | Emergency (ER) | payer MEDICARE, MEDICAID ==
[~2021-05-19] VITALS: Ht 182.9 cm; Wt 75.0 kg
[2021-05-19 18:14] VITALS: TEMP 97.7
[2021-05-19 18:26] LABS: HEMOGLOBIN 10.2 g/dl (13.5-18.0); MEAN CELL VOLUME 92 fl (80.0-100.0); MEAN CORPUSCULAR HEMOGLOBIN 30 pg (27-31); MEAN CORPUSCULAR HGB CONC 32 g/dl (33.0-37.0); MEAN PLATELET VOLUME 9.1 fl (7.4-10.4); PLATELET COUNT 186 K/mm3 (130-400); RED BLOOD COUNT 3.46 M/mm3 (4.20-5.60); REDCELL DISTRIBUTION WIDTH-CV 13.7 % (11.5-14.5)
[2021-05-19 18:31] LABS: HEMATOCRIT 31.8 % (42.0-52.0)
[2021-05-19 18:42] LABS: ALANINE AMINOTRANSFERASE 26 U/L (0-55); ALBUMIN 3.3 gm/dL (3.4-4.8); ALKALINE PHOSPHATASE 93 U/L (40-150); ANION GAP 10 mmol/L (7-16); AST,SGOT 20 U/L (5-34); BILIRUBIN,TOTAL 0.4 mg/dL (0.2-1.2); BLOOD UREA NITROGEN 46 mg/dL (8-26); CALCIUM 7.2 mg/dL (8.4-10.2); CARBON DIOXIDE 21 mmol/L (23-31); CHLORIDE 109 mmol/L (98-107); CREATININE, serum 4.16 mg/dL (0.72-1.25); GLUCOSE 92 mg/dL (70-99); POTASSIUM 3.9 mmol/L (3.5-4.5); SODIUM 140 mmol/L (136-145); TOTAL PROTEIN 6.7 gm/dL (6.2-8.1)
[2021-05-19 18:43] LABS: EOSINOPHIL 1 % (0-4); NEUTROPHILS 12 % (42.0-75.2); PLATELET ESTIMATE NORMAL (NORMAL)
[2021-05-19 18:44] LABS: LYMPHOCYTE 83 % (20.0-51.0)
[2021-05-19 18:52] LABS: TROPONIN-I < 0.010 ng/mL (0.00-0.033)
[2021-05-19 19:37] LABS: COLLECTION METHOD CLEAN CATCH
[2021-05-19 19:45] LABS: PH 6 (5-8); SQUAMOUS EPITHELIAL 0-2 /hpf (0-10); URINE APPEARANCE Hazy (CLEAR/HAZY); URINE BACTERIA None Seen /hpf (NONE SEEN); URINE BILIRUBIN Negative (NEGATIVE); URINE BLOOD 1+ (NEGATIVE); URINE COLOR Yellow (YELLOW); URINE GLUCOSE Negative (NEGATIVE); URINE KETONE Negative (NEGATIVE); URINE LEUKOCYTE ESTERASE 3+ (NEGATIVE); URINE NITRATE Negative (NEGATIVE); URINE PROTEIN(semi-quant) Negative (NEGATIVE); URINE RBC 0-2 /hpf (0-2); URINE UROBILINOGEN Negative (NEGATIVE)
[2021-05-19 20:21] LABS: TRICYCLIC ANTIDEPRESS URINE NEGATIVE
[2021-05-19 20:58] VITALS: BP 150/89; PULSE 71
[2021-05-21 11:38] LABS: PATHOLOGY DIFF REVIEW OK +
== END 2021-05-19 21:17 | disposition home or self-care (01) ==
LOC: COL.ER 18:12
PROVIDERS: Emergency Medicine
DX: F15.129 Other stimulant abuse with intoxication, unspecified (principal); R55 Syncope and collapse; N18.6 End stage renal disease; D63.1 Anemia in chronic kidney disease; M32.9 Systemic lupus erythematosus, unspecified; F17.210 Nicotine dependence, cigarettes, uncomplicated; Z99.2 Dependence on renal dialysis
CPT/HCPCS: J7050

== ENCOUNTER 2021-06-01 21:03 | Emergency (ER) | payer MEDICARE, MEDICAID ==
[~2021-06-01] VITALS: Ht 177.8 cm; Wt 84.1 kg
[2021-06-01 21:20] VITALS: TEMP 98.7
[2021-06-01 22:06] LABS: COLLECTION METHOD CLEAN CATCH
[2021-06-01 22:07] LABS: HEMOGLOBIN 10.3 g/dl (13.5-18.0); MEAN CELL VOLUME 92 fl (80.0-100.0); MEAN CORPUSCULAR HEMOGLOBIN 30 pg (27-31); MEAN CORPUSCULAR HGB CONC 33 g/dl (33.0-37.0); MEAN PLATELET VOLUME 9.3 fl (7.4-10.4); PLATELET COUNT 235 K/mm3 (130-400); RED BLOOD COUNT 3.42 M/mm3 (4.20-5.60); REDCELL DISTRIBUTION WIDTH-CV 13.3 % (11.5-14.5)
[2021-06-01 22:16] LABS: SQUAMOUS EPITHELIAL None Seen /hpf (0-10); URINE BACTERIA Occasional /hpf (NONE SEEN)
[2021-06-01 22:17] LABS: URINE COLOR Yellow (YELLOW)
[2021-06-01 22:18] LABS: PH 6 (5-8); URINE APPEARANCE Hazy (CLEAR/HAZY); URINE BILIRUBIN Negative (NEGATIVE); URINE BLOOD 1+ (NEGATIVE); URINE GLUCOSE Negative (NEGATIVE); URINE KETONE Negative (NEGATIVE); URINE LEUKOCYTE ESTERASE 3+ (NEGATIVE); URINE NITRATE Negative (NEGATIVE); URINE PROTEIN(semi-quant) 1+ (NEGATIVE); URINE UROBILINOGEN Negative (NEGATIVE)
[2021-06-01 22:18] LABS: HEMATOCRIT 31.6 % (42.0-52.0)
[2021-06-01 22:20] LABS: TRICYCLIC ANTIDEPRESS URINE NEGATIVE
[2021-06-01 22:28] LABS: BAND 1 % (0-10); LYMPHOCYTE 73 % (20.0-51.0); NEUTROPHILS 24 % (42.0-75.2)
[2021-06-01 22:30] LABS: ALBUMIN 3.2 gm/dL (3.4-4.8); BILIRUBIN,TOTAL 0.4 mg/dL (0.2-1.2); CALCIUM 7.4 mg/dL (8.4-10.2); CREATININE, serum 9.65 mg/dL (0.72-1.25); TOTAL PROTEIN 7.5 gm/dL (6.2-8.1)
[2021-06-01 22:33] LABS: PLATELET ESTIMATE NORMAL (NORMAL)
[2021-06-01 22:48] VITALS: BP 133/100; PULSE 83
[2021-06-01 22:51] LABS: POTASSIUM 6.1 mmol/L (3.5-4.5)
[2021-06-01] MEDS ORDERED: CEPHALEXIN500 M1 PO ×2 (23:02)
[2021-06-05] MEDS ORDERED: CIPRO 500MG TA500 MG PO (08:55)
[2021-06-08] MEDS ORDERED: LEVAQUIN 750MG750 M1 PO (14:10)
[2021-06-08] MEDS ORDERED: PHOSLO667 MG PO (14:11)
== END 2021-06-01 23:13 | disposition home or self-care (01) ==
LOC: COL.ER 21:03
PROVIDERS: Student in an Organized Health Care Education/Training Program
DX: N39.0 Urinary tract infection, site not specified (principal); N18.6 End stage renal disease; Z99.2 Dependence on renal dialysis; Z20.822 Contact with and (suspected) exposure to COVID-19

== ENCOUNTER 2021-08-04 09:53 | Emergency (ER) | payer MEDICARE, MEDICAID ==
[~2021-08-04] VITALS: Ht 170.2 cm; Wt 72.7 kg
[~2021-08-04 09:53] MED LIST changes: +CIPRO 500MG TA500 MG PO; +LEVAQUIN 750MG750 M1 PO; +PHOSLO667 MG PO
[2021-08-04 10:30] VITALS: BP 138/82; PULSE 60
== END 2021-08-04 10:27 | disposition left against medical advice (07) ==
LOC: COL.ER 09:53
DX: R40.4 Transient alteration of awareness (principal); Z99.2 Dependence on renal dialysis

== ENCOUNTER 2021-08-24 20:46 | Emergency (ER) | payer MEDICARE, MEDICAID ==
[~2021-08-24] VITALS: Ht 180.3 cm; Wt 72.0 kg
[2021-08-24 20:50] VITALS: BP 138/81; TEMP 99.1
[2021-08-24 21:13] LABS: COLLECTION METHOD CLEAN CATCH
[2021-08-24 21:32] LABS: PH 8 (5-8); SQUAMOUS EPITHELIAL None Seen /hpf (0-10); URINE APPEARANCE Turbid (CLEAR/HAZY); URINE BACTERIA None Seen /hpf (NONE SEEN); URINE BILIRUBIN Negative (NEGATIVE); URINE BLOOD 2+ (NEGATIVE); URINE COLOR Yellow (YELLOW); URINE GLUCOSE Negative (NEGATIVE); URINE KETONE Negative (NEGATIVE); URINE LEUKOCYTE ESTERASE 3+ (NEGATIVE); URINE NITRATE Negative (NEGATIVE); URINE PROTEIN(semi-quant) 2+ (NEGATIVE); URINE RBC >50 /hpf (0-2); URINE UROBILINOGEN Negative (NEGATIVE)
[2021-08-24] MEDS ORDERED: LEVAQUIN 2250 MG/TAB PO (21:36)
[2021-08-24 21:54] VITALS: PULSE 96
== END 2021-08-24 21:55 | disposition home or self-care (01) ==
LOC: COL.ER 20:46
PROVIDERS: Emergency Medicine
DX: N39.0 Urinary tract infection, site not specified (principal); D63.1 Anemia in chronic kidney disease; N18.6 End stage renal disease; F17.210 Nicotine dependence, cigarettes, uncomplicated; Z99.2 Dependence on renal dialysis; Z28.310 Unvaccinated for COVID-19

== ENCOUNTER 2021-11-11 20:48 | Inpatient (IN) | payer MEDICARE, MEDICAID ==
[~2021-11-11] VITALS: Ht 182.9 cm; Wt 78.9 kg
[~2021-11-11 20:48] MED LIST changes: +LEVAQUIN 2250 MG/TAB PO
[2021-11-11 21:23] LABS: HEMOGLOBIN 10.9 g/dl (13.5-18.0); MEAN CELL VOLUME 98 fl (80.0-100.0); MEAN CORPUSCULAR HEMOGLOBIN 31 pg (27-31); MEAN CORPUSCULAR HGB CONC 32 g/dl (33.0-37.0); MEAN PLATELET VOLUME 9.5 fl (7.4-10.4); PLATELET COUNT 145 K/mm3 (130-400); REDCELL DISTRIBUTION WIDTH-CV 13.2 % (11.5-14.5)
[2021-11-11 21:27] LABS: HEMATOCRIT 34.2 % (42.0-52.0)
[2021-11-11 21:31] LABS: COLLECTION METHOD CLEAN CATCH
[2021-11-11 21:40] LABS: MUCOUS Present (NOT PRESENT); PH 9 (5-8); SQUAMOUS EPITHELIAL None Seen /hpf (0-10); URINE APPEARANCE Turbid (CLEAR/HAZY); URINE BACTERIA Occasional /hpf (NONE SEEN); URINE BLOOD 1+ (NEGATIVE); URINE COLOR Yellow (YELLOW); URINE GLUCOSE Negative (NEGATIVE); URINE KETONE Negative (NEGATIVE); URINE NITRATE Negative (NEGATIVE); URINE PROTEIN(semi-quant) 2+ (NEGATIVE); URINE RBC >50 /hpf (0-2); URINE UROBILINOGEN Negative (NEGATIVE)
[2021-11-11 21:48] LABS: LYMPHOCYTE 84 % (20.0-51.0); NEUTROPHILS 15 % (42.0-75.2); PLATELET ESTIMATE NORMAL (NORMAL)
[2021-11-11 21:49] LABS: STOMATOCYTE 1+
[2021-11-11 22:10] LABS: ALBUMIN 3.6 gm/dL (3.4-4.8); BILIRUBIN,TOTAL 1.4 mg/dL (0.2-1.2); CALCIUM 7.5 mg/dL (8.4-10.2); CREATININE, serum 7.07 mg/dL (0.72-1.25); POTASSIUM 4.1 mmol/L (3.5-4.5); TOTAL PROTEIN 6.7 gm/dL (6.2-8.1)
[2021-11-11 22:16] LABS: TROPONIN-I 0.011 ng/mL (0.00-0.033)
[2021-11-11 23:52] LABS: TRICYCLIC ANTIDEPRESS URINE NEGATIVE
[2021-11-12] VITALS (10 sets, daily range): BP systolic 84–121; BP diastolic 39–69; PULSE 95–103; TEMP 98.2–99.7
--- NOTE | 2021-11-12 05:00 | NUR ---
PT ARRIVED TO THE MEDICAL FLOOR AROUND 0020HRS TO ROOM 313. UNABLE TO GET PT TO ANSWER MOST QUESTIONS DUE TO DROWINESS. PT STAYED AWAKE ENOUGH TO ANSWER JUST HIS NAME AND . VSS WITH SOME ELEVATED TEMPS. O2 TO RA. ADMISSIONS ASSESSMENT COMPLETE POSSIBLE. UNABLE TO COMPLETE MED REC DUE TO PT STATING HE DOES NOT KNOW HIS MEDS. PT ORIENTED TO AND HOSPITAL POLICY. TEACHING WILL NEED REINFORCEMENT DUE TO DROWSINESS. PUS COMING OUT OF PT'S PENIS AND PT SEEMS TO BE IN PAIN TRYING TO URINATE. WILL CONTINUE TO MONITOR. CALL LIGHT WITHIN REACH.
--- NOTE | 2021-11-12 07:57 | NUR ---
Patient moaning out in pain-heard at nurses station. Rating pain 10/10 on pain scale-described as throbbing-sharp jabs in isabel area/flanks. Dr Sethi notified and new orders received.
--- NOTE | 2021-11-12 08:03 | NUR ---
Dr Sethi notified of blood pressures of 80s/40s. Pain medications not given at this time due to low BP. New orders received for fluid bolus-NS@125ml/hr x2 hours. Started at this time. Patient very drowsy and wakes with stimuli but only moans out stating he has pain. Monitoring blood pressures Q25min.
--- NOTE | 2021-11-12 11:40 | NUR ---
To dialysis at this time.
--- NOTE | 2021-11-12 14:20 | NUR ---
Back to room from Dialysis at this time.
--- NOTE | 2021-11-12 14:51 | NUR ---
OUMAR unable to complete intake as patient is off of the unit getting dialysis.
--- NOTE | 2021-11-12 18:01 | NUR ---
Patient had dialysis today. Had several low blood pressures-Dr Sethi aware. Has tolerated PO. Urine with a lot of sediment present. Denies current needs. Call light in reach. Will monitor.
[2021-11-13 00:42] VITALS: BP 108/59; PULSE 88; TEMP 99.2
[2021-11-13 04:22] VITALS: BP 119/58; PULSE 93; TEMP 98.3
[2021-11-13 07:34] LABS: ALBUMIN 2.6 gm/dL (3.4-4.8); CALCIUM 7.6 mg/dL (8.4-10.2); CREATININE, serum 6.56 mg/dL (0.72-1.25); PHOSPHOROUS 3.6 mg/dL (2.3-4.7); POTASSIUM 4.2 mmol/L (3.5-4.5)
[2021-11-13 07:37] LABS: MEAN CELL VOLUME 98 fl (80.0-100.0); MEAN CORPUSCULAR HGB CONC 32 g/dl (33.0-37.0); MEAN PLATELET VOLUME 10.2 fl (7.4-10.4); PLATELET COUNT 126 K/mm3 (130-400); RED BLOOD COUNT 2.87 M/mm3 (4.20-5.60); REDCELL DISTRIBUTION WIDTH-CV 13.4 % (11.5-14.5)
[2021-11-13 07:38] LABS: HEMATOCRIT 28.1 % (42.0-52.0); MEAN CORPUSCULAR HEMOGLOBIN 31 pg (27-31)
[2021-11-13 07:40] LABS: HEMOGLOBIN 8.9 g/dl (13.5-18.0)
[2021-11-13 08:10] LABS: BAND 4 % (0-10); NEUTROPHILS 17 % (42.0-75.2)
[2021-11-13 08:11] VITALS: BP 108/63; PULSE 92; TEMP 98.3
[2021-11-13 08:12] LABS: HYPOCHROMIA 1+; PLATELET ESTIMATE NORMAL (NORMAL)
[2021-11-13 08:13] LABS: LYMPHOCYTE 75 % (20.0-51.0)
--- NOTE | 2021-11-13 08:28 | NUR ---
Assessment complete. A&Ox4. Denies pain-states pain is only present with urination. VS are stable. Blood pressure better than yesterday. LCTA. Tolerating PO. States he feels like he is getting a "head cold or allergies." Noted to have +2 edema to BLE and +1 edema to bilat upper ext. Urine is transmission maintenance supervisor this AM but still a dark yellow with mucous/pus/sediment present. Plan of care discussed for this shift to include meds, pain control, VS and calling for questions/concerns. Verbalizes understanding. Call light in reach. Will monitor.
[2021-11-13 12:08] VITALS: BP 110/62; PULSE 95; TEMP 98.4
[2021-11-13 15:34] VITALS: BP 148/76; PULSE 92; TEMP 98.4
--- NOTE | 2021-11-13 15:53 | NUR ---
SW met with pt to complete intake. [facility] Pt is does dialysis with [facility]. Pt reports independent on all ADLs, and does not use any DME. Pt DPOA-HC is Ty Huertas and form is in chart,[phone]. Pt has two children, Orestes and Bryanna as of next of kin. PCP is Dr. Cruz and get medications from [facility]. Pt was interested in food stamp. SW provided information for foodstamps. no other needs at this time DC: home.
--- NOTE | 2021-11-13 18:17 | NUR ---
Patient had an uneventful day. Is tolerating PO. Less confused today but still would make random comments. Urine is now yellow but still has pus/sediment. Did not receive anything for pain. Denies current needs. Call light in reach. Will monitor.
[2021-11-13 19:32] VITALS: BP 145/70; PULSE 87; TEMP 98.6
[2021-11-14 00:18] VITALS: BP 130/63; PULSE 80; TEMP 98.1
[2021-11-14 03:29] VITALS: BP 159/83; PULSE 88; TEMP 98.7
--- NOTE | 2021-11-14 05:50 | NUR ---
ASSESSMENT COMPLETE FOR MANAGER CORPORATE COMMUNICATIONS. PT COMPLAINED OF ABD/PENIS PAIN. PT GIVEN NORCO FOR PAIN. NORCO EFFECTIVE FOR PAIN. PT STATES HE FEELS BETTER. PT DENIED CHEST PAIN, PALPITATIONS, N,M,V OR DIZZINESS. PT EXPRESSED NO ADDITIONAL NEEDS AT THIS TIME. CALL LIGHT WITHIN REACH.
[2021-11-14 06:21] LABS: MEAN CELL VOLUME 95 fl (80.0-100.0); MEAN CORPUSCULAR HGB CONC 32 g/dl (33.0-37.0); MEAN PLATELET VOLUME 9.9 fl (7.4-10.4); PLATELET COUNT 160 K/mm3 (130-400); RED BLOOD COUNT 3.11 M/mm3 (4.20-5.60); REDCELL DISTRIBUTION WIDTH-CV 12.9 % (11.5-14.5)
[2021-11-14 06:36] LABS: ALBUMIN 2.7 gm/dL (3.4-4.8); CALCIUM 8.1 mg/dL (8.4-10.2); CREATININE, serum 8.01 mg/dL (0.72-1.25); PHOSPHOROUS 3.6 mg/dL (2.3-4.7); POTASSIUM 4.6 mmol/L (3.5-4.5)
[2021-11-14 06:51] LABS: HEMATOCRIT 29.6 % (42.0-52.0); HEMOGLOBIN 9.5 g/dl (13.5-18.0); MEAN CORPUSCULAR HEMOGLOBIN 31 pg (27-31)
[2021-11-14 07:07] LABS: BAND 3 % (0-10); LYMPHOCYTE 73 % (20.0-51.0); NEUTROPHILS 22 % (42.0-75.2)
[2021-11-14 07:08] LABS: PLATELET ESTIMATE NORMAL (NORMAL)
[2021-11-14 07:36] VITALS: BP 129/67; PULSE 88; TEMP 98.1
[2021-11-14 11:55] VITALS: BP 135/78; PULSE 77; TEMP 98.2
[2021-11-14 16:30] VITALS: BP 138/73; PULSE 72; TEMP 98.3
[2021-11-14 20:25] VITALS: BP 134/68; PULSE 84; TEMP 99.3
[2021-11-15] VITALS (7 sets, daily range): BP systolic 113–149; BP diastolic 54–80; PULSE 54–95; TEMP 97.6–99.3
--- NOTE | 2021-11-15 01:55 | NUR ---
Pt alert. Follows commands. Calm and cooperative. At times appears disoriented. Conversations with the pt do not always make sense, or the pt constantly calls ppl by the incorrect names. Denies pain at this time, though when pt in OOB he verbally moans. Pt continues to decline pain medication when offered. Pt did receive prn tylenol, prn zofran, and prn benadryl to help with sleep/stomach indigestion/physical signs of pain/temp 99.3. Pt up frequently to void. Pt voids little and reports burning when voiding. Pt has unsteady gait. Bed alarm on, bed low and in locked position. Fall precautions in place. Shift assessment performed. Medications administered per orders and education provided. VS stable. Pt satting WNL on room air. BP stable. Temp max 99.3 at 2000, had decreased to 98.0 at 0000. quality assurance monitor on. HD catheter noted on the right chest. Gauze dressing clean/dry/intact. Site soft with no edema/red/drainage. Pt refusing SCD's. Pt tolerating PO. Dialysis diet enforced. Pt does not report any questions at this time. Bed low and locked, call irby within reach. No new concerns at this time.
--- NOTE | 2021-11-15 04:52 | NUR ---
No adverse events overnight. Pt remains alert, but still confused at times. This morning I went to administer the pt pain medication for abdominal pain and he asked me where his dinner was. Pt was quickly re-oriented, but the conversations with the pt still continue to not make sense at all times. Pt was given prn norco x1 this morning for abdominal pain. VS stable. Temp max overnight was 99.3F. Satting WNL on room air. Pt up frequently overnight to void. Pt's gait continues to be unsteady. Fall precautions in place. Pt does not report any questions at this time. Bed low and locked, call irby within reach, bed alarm on. No new concerns at this time.
[2021-11-15 06:17] LABS: MEAN CELL VOLUME 95 fl (80.0-100.0); MEAN CORPUSCULAR HGB CONC 32 g/dl (33.0-37.0); PLATELET COUNT 149 K/mm3 (130-400); RED BLOOD COUNT 2.89 M/mm3 (4.20-5.60)
[2021-11-15 06:28] LABS: HEMATOCRIT 27.5 % (42.0-52.0); HEMOGLOBIN 8.9 g/dl (13.5-18.0); MEAN CORPUSCULAR HEMOGLOBIN 31 pg (27-31)
[2021-11-15 06:47] LABS: ALBUMIN 2.6 gm/dL (3.4-4.8); CALCIUM 7.9 mg/dL (8.4-10.2); CREATININE, serum 9.24 mg/dL (0.72-1.25); PHOSPHOROUS 5.1 mg/dL (2.3-4.7); POTASSIUM 5.2 mmol/L (3.5-4.5)
[2021-11-15 07:53] LABS: BAND 3 % (0-10); NEUTROPHILS 18 % (42.0-75.2)
[2021-11-15 07:54] LABS: HYPOCHROMIA 2+; PLATELET ESTIMATE NORMAL (NORMAL)
[2021-11-15 07:55] LABS: LYMPHOCYTE 76 % (20.0-51.0)
[2021-11-15 08:15] LABS: PATHOLOGY DIFF REVIEW OK
--- NOTE | 2021-11-15 09:43 | NUR ---
Scheduled medications given. Shift assessment preformed. VSS. Patient A&O. Patient denies any pain, discomfort, SOA, or further needs at this time. Call light in reach. Fall precautions in place.
--- NOTE | 2021-11-15 14:46 | NUR ---
Technology Development Intern met with patient to discuss resources. SW also addressed patient's methamphetamine use and patient states he plans to quit. SW offered drug and alcohol resources however patient states he thinks he can "beat it" himself". SW provided resources about food assistance, drug and alcohol, and mental health.
--- NOTE | 2021-11-15 20:51 | NUR ---
Patient assessed around 1919. Denies pain and discomfort. Recieved IV ABX to peripheral INT to right forearm. HD catheter to right chest. Telemetry in place. Patient has moist, productive cough. Given PRN Benadryl for insomnia as requested. Voices no questions, needs, or concerns at this time. In bed with call light within reach.
[2021-11-16 04:04] VITALS: BP 145/54; PULSE 88; TEMP 97.9
--- NOTE | 2021-11-16 06:06 | NUR ---
Patient had denied pain and discomfort this shift. Patient has shown signs of pain with uination, such as groaning/facial grimacing, states that it hurts, but denies wanting anything for pain. Having moist, productive cough this shift. Complained of SOB and dyspnea. Oxygen level 89-91% sitting up on room air. Put on oxygen at 1 L/min via NC, which patient reports helped a lot. In bed with call light within reach. Voices no questions, needs, or concerns at this time.
[2021-11-16 06:34] LABS: MEAN CELL VOLUME 94 fl (80.0-100.0); MEAN CORPUSCULAR HGB CONC 33 g/dl (33.0-37.0); MEAN PLATELET VOLUME 10.2 fl (7.4-10.4); PLATELET COUNT 133 K/mm3 (130-400); RED BLOOD COUNT 3.01 M/mm3 (4.20-5.60); REDCELL DISTRIBUTION WIDTH-CV 13.1 % (11.5-14.5)
[2021-11-16 06:37] LABS: HEMATOCRIT 28.4 % (42.0-52.0); HEMOGLOBIN 9.3 g/dl (13.5-18.0); MEAN CORPUSCULAR HEMOGLOBIN 31 pg (27-31)
[2021-11-16 06:48] LABS: ALBUMIN 2.4 gm/dL (3.4-4.8); CALCIUM 7.7 mg/dL (8.4-10.2); CREATININE, serum 7.08 mg/dL (0.72-1.25); PHOSPHOROUS 3.7 mg/dL (2.3-4.7); POTASSIUM 4.9 mmol/L (3.5-4.5)
[2021-11-16 07:49] LABS: BAND 3 % (0-10); BASOPHIL 1 % (0-2); EOSINOPHIL 1 % (0-4); NEUTROPHILS 6 % (42.0-75.2)
[2021-11-16 07:50] LABS: LYMPHOCYTE 85 % (20.0-51.0); PLATELET ESTIMATE NORMAL (NORMAL)
[2021-11-16 08:24] VITALS: BP 128/65; PULSE 65; TEMP 97.7
--- NOTE | 2021-11-16 08:55 | NUR ---
PT NOT FEELING WELL THIS AM, STATES HE IS CONGESTED AND COMPLAINS OF A COUGH. MORNING MEDICATIONS GIVEN. SHIFT ASSESSMENT COMPLETED. PT HAVING SENSORY HALLUCINATIONS OF CUTS ALL OVER HIS CHEST THAT AE SENSITIVE TO THE TOUCH. PT ORIENTED TO SELF AND PLACE. WILL CONTINUE TO MONITOR.
[2021-11-16 12:10] VITALS: BP 130/68; PULSE 70; TEMP 98.4
--- NOTE | 2021-11-16 15:19 | NUR ---
Advocacy Director made report to Adult Protective Services (intake #[id number]) based on concerns noted in patient's progress notes regarding food availability at home.
[2021-11-16 16:01] VITALS: BP 131/69; PULSE 67; TEMP 98.9
--- NOTE | 2021-11-16 18:44 | NUR ---
Patient had tested positive for Parainfluenza. Has productive cough. Call placed to Dr. Sethi and requested cough medicine. Received medication order and order to consult Dr. Gross. Call placed to Dr. Gross and message left requesting call back for consult.
[2021-11-16 20:03] VITALS: BP 146/77; PULSE 74; TEMP 97.8
--- NOTE | 2021-11-16 20:45 | NUR ---
Patient assesed around 2014. Alert and oriented at this time. Complaining of pain to abdomen. Given PRN [place] for pain. Also given PRN Robitussin for cough, as well as Benadryl for insomnia. On room air. Patient voices no questions, needs, or concerns at this time. In bed with call light within reach.
[2021-11-17 00:03] VITALS: BP 149/78; PULSE 74; TEMP 97.7
[2021-11-17 04:08] VITALS: BP 151/71; PULSE 73; TEMP 98.1
--- NOTE | 2021-11-17 05:55 | NUR ---
Zeyad reports being able to sleep more tonight, and decreased cough after cough medicine. Voices no questions, needs, or concerns at this time. Dr. Gross called and updated on patient. No new orders at this time. Patient in bed with call light within reach.
[2021-11-17 06:24] LABS: MEAN CELL VOLUME 95 fl (80.0-100.0); MEAN CORPUSCULAR HGB CONC 33 g/dl (33.0-37.0); MEAN PLATELET VOLUME 10.1 fl (7.4-10.4); PLATELET COUNT 125 K/mm3 (130-400); RED BLOOD COUNT 3.12 M/mm3 (4.20-5.60); REDCELL DISTRIBUTION WIDTH-CV 13.2 % (11.5-14.5)
[2021-11-17 06:42] LABS: ALBUMIN 2.6 gm/dL (3.4-4.8); CALCIUM 7.8 mg/dL (8.4-10.2); CREATININE, serum 8.44 mg/dL (0.72-1.25); PHOSPHOROUS 4.3 mg/dL (2.3-4.7); POTASSIUM 5.1 mmol/L (3.5-4.5)
[2021-11-17 06:49] LABS: HEMATOCRIT 29.7 % (42.0-52.0); HEMOGLOBIN 9.7 g/dl (13.5-18.0); MEAN CORPUSCULAR HEMOGLOBIN 31 pg (27-31)
[2021-11-17 08:14] LABS: BAND 4 % (0-10); EOSINOPHIL 4 % (0-4); NEUTROPHILS 9 % (42.0-75.2)
[2021-11-17 08:15] LABS: LYMPHOCYTE 78 % (20.0-51.0); PLATELET ESTIMATE NORMAL (NORMAL)
--- NOTE | 2021-11-17 08:40 | NUR ---
PT SITTING UP ON EDGE OF BED. MORNING MEDICATIONS GIVEN. SHIFT ASSESSMENT COMPLETED. PT A&O X4 THIS AM, NO HALLUCINATIONS NOTED DURING CONVERSATION. PT COMPLAINS OF CONGESTION AND COUGH. PT ESCORTED TO DIALYSIS. WILL CONTINUE TO MONITOR.
[2021-11-17] MEDS ORDERED: LEVAQUIN 750MG750 M1 PO (10:56)
--- NOTE | 2021-11-17 15:08 | NUR ---
DISCHARGE INSTRUCTIONS GIVEN, ALL QUESTIONS ANSWERED. PT ESCORTED DOWN WITH PERSONAL BELONGINGS. WILL D/C FROM SYSTEM.
== END 2021-11-17 15:10 | disposition home or self-care (01) | DRG 690 ==
LOC: COL.ER 20:48 → MEDICAL 23:43 → COL.ER 23:43 → MEDICAL 11-12 23:00
PROVIDERS: Emergency Medicine; ADMIT Internal Medicine Nephrology
PROC: 5A1D70Z Performance of Urinary Filtration, Intermittent, Less than 6 Hours Per Day (ICD-10-PCS; principal; 2021-11-12)
DX: N12 Tubulo-interstitial nephritis, not specified as acute or chronic (principal); Z16.29 Resistance to other single specified antibiotic; N40.0 Benign prostatic hyperplasia without lower urinary tract symptoms; N18.6 End stage renal disease; N39.0 Urinary tract infection, site not specified; F12.90 Cannabis use, unspecified, uncomplicated; Z20.822 Contact with and (suspected) exposure to COVID-19; D72.829 Elevated white blood cell count, unspecified; D63.1 Anemia in chronic kidney disease; N13.9 Obstructive and reflux uropathy, unspecified; J20.9 Acute bronchitis, unspecified; B34.8 Other viral infections of unspecified site; F15.10 Other stimulant abuse, uncomplicated; B96.20 Unspecified Escherichia coli [E. coli] as the cause of diseases classified elsewhere; Z88.2 Allergy status to sulfonamides; Z72.89 Other problems related to lifestyle; Z87.440 Personal history of urinary (tract) infections; Z99.2 Dependence on renal dialysis; Z85.72 Personal history of non-Hodgkin lymphomas; Z87.891 Personal history of nicotine dependence; Z95.0 Presence of cardiac pacemaker
CPT/HCPCS: J1644; J1956; J2270; J2405; J7030; J7050; Q5105

== ENCOUNTER 2021-12-13 10:32 | Emergency (ER) | payer MEDICARE, MEDICAID ==
[~2021-12-13] VITALS: Ht 172.7 cm; Wt 77.3 kg
[2021-12-13 10:34] VITALS: BP 143/93; PULSE 76; TEMP 97.6
== END 2021-12-13 11:00 | disposition left against medical advice (07) ==
LOC: COL.ER 10:32
DX: R41.82 Altered mental status, unspecified (principal); N18.9 Chronic kidney disease, unspecified; F17.200 Nicotine dependence, unspecified, uncomplicated; Z99.2 Dependence on renal dialysis; Z28.310 Unvaccinated for COVID-19

== ENCOUNTER 2022-06-14 15:59 | Emergency (ER) | payer MEDICARE, MEDICAID ==
[~2022-06-14] VITALS: Ht 182.9 cm; Wt 75.0 kg
[~2022-06-14 15:59] MED LIST changes: +FLAGYL500 MG PO
[2022-06-14 18:17] VITALS: TEMP 102.4
[2022-06-14 18:42] LABS: HEMOGLOBIN 10.9 g/dl (13.5-18.0); MEAN CELL VOLUME 94 fl (80.0-100.0); MEAN CORPUSCULAR HEMOGLOBIN 31 pg (27-31); MEAN CORPUSCULAR HGB CONC 33 g/dl (33.0-37.0); MEAN PLATELET VOLUME 9.6 fl (7.4-10.4); PLATELET COUNT 180 K/mm3 (130-400); RED BLOOD COUNT 3.54 M/mm3 (4.20-5.60); REDCELL DISTRIBUTION WIDTH-CV 12.9 % (11.5-14.5)
[2022-06-14 18:46] LABS: HEMATOCRIT 33.3 % (42.0-52.0)
[2022-06-14 19:01] LABS: ALBUMIN 3.8 gm/dL (3.4-4.8); BILIRUBIN,TOTAL 0.8 mg/dL (0.2-1.2); C-REACTIVE PROTEIN 7.15 mg/dL (0.00-0.50); CALCIUM 7.1 mg/dL (8.4-10.2); CREATININE, serum 7.17 mg/dL (0.72-1.25); TOTAL PROTEIN 7.7 gm/dL (6.2-8.1)
[2022-06-14 19:07] LABS: POTASSIUM 5.8 mmol/L (3.5-4.5)
[2022-06-14 19:42] LABS: BAND 2 % (0-10); HYPOCHROMIA 1+; LYMPHOCYTE 81 % (20.0-51.0); NEUTROPHILS 17 % (42.0-75.2); PLATELET ESTIMATE NORMAL (NORMAL)
[2022-06-14 23:26] VITALS: BP 122/82; PULSE 114
== END 2022-06-14 23:30 | disposition short-term general hospital (02) ==
LOC: COL.ER 15:59
PROVIDERS: Emergency Medicine
DX: A41.9 Sepsis, unspecified organism (principal); N18.6 End stage renal disease; Z87.891 Personal history of nicotine dependence; Z88.2 Allergy status to sulfonamides; Z20.822 Contact with and (suspected) exposure to COVID-19; Z99.2 Dependence on renal dialysis
CPT/HCPCS: J2405; J2543; J3370; J7050

== ENCOUNTER 2023-02-05 14:56 | Emergency (ER) | payer MEDICARE, MEDICAID ==
[~2023-02-05] VITALS: Ht 180.3 cm; Wt 72.7 kg
[2023-02-05 16:21] LABS: STREP SCREEN NEGATIVE
[2023-02-05] MEDS ORDERED: ZITHROMAX 250M250 MG PO (17:47)
[2023-02-05 18:02] VITALS: BP 154/96; PULSE 96; TEMP 98.7
== END 2023-02-05 18:05 | disposition home or self-care (01) ==
LOC: COL.ER 14:56
PROVIDERS: Nurse Practitioner
DX: J40 Bronchitis, not specified as acute or chronic (principal); J90 Pleural effusion, not elsewhere classified; N18.6 End stage renal disease; F17.200 Nicotine dependence, unspecified, uncomplicated; Z99.2 Dependence on renal dialysis; Z88.2 Allergy status to sulfonamides

== ENCOUNTER 2023-06-24 19:26 | Inpatient (IN) | payer MEDICARE, MEDICAID ==
[~2023-06-24] VITALS: Ht 180.3 cm; Wt 81.6 kg
[~2023-06-24 19:26] MED LIST changes: +APRESOLINE 25MG25 MG PO; +IMDUR 30MG30 MG/TAB PO; +TOPROL XL 25MG25 MG PO; +VELTASSA8.4 GM PO; +ZITHROMAX 250M250 MG PO
--- NOTE | 2023-06-24 20:50 | NUR ---
MALE PATIENT ARRIVED TO ROOM #315 FROM [place] VIA STRETCH WITH EMS. PATIENT ASSISTED TO BED WITH STAND BY ASSIST. GAIT STEADY AT THIS TIME. PATIENT ORIENTED TO ROOM. PATIENT VERBALIZED UNDERSTANDING OF CALL LIGHT AND BED CONTROLS. PATIENT REQUESTED SOMETHING TO EAT AND VERBALIZED UNDERSTANDING THAT FOOD WOULD BE GIVEN. PATIENT DENIES ANY OTHER NEEDS. BED IN LOW POSITION WITH WHEELS LOCKED WITH RAILS UP X2 AND CALL LIGHT WITHIN REACH. BED ALARM ON.
[2023-06-24 21:00] VITALS: BP 127/87; BP_SYST 137; PULSE 90; TEMP 97.6
[2023-06-24] MEDS ORDERED: Ondansetron 4 MG/2 ML VIAL IV PRN (21:00)
[2023-06-24] MEDS ORDERED: Heparin 5,000 UNITS/ML 1 ML VIAL SQ SCH (21:00)
[2023-06-24] MEDS ORDERED: Melatonin 3 MG TAB PO PRN (21:00)
[2023-06-24] MEDS ORDERED: Acetaminophen 325 MG TAB PO PRN (21:00)
--- NOTE | 2023-06-24 21:27 | NUR ---
Patient assisted back to bed from toilet. Noted to have had approx 60mls of bloody with purulent-maloderous discharge from penis. Patient states "thats all I have been pissing for 7 months." Report given to VERONICA Marquez primary nurse.
--- NOTE | 2023-06-24 21:30 | NUR ---
PATIENT RESTING IN BED WITH TV ON WITH NO FAMILY PRESENT WITH NO ACUTE DISTRESS NOTED. PATIENT ON ROOM AIR. INT TO RIGHT AC INTACT WITH NO COMPLICATIONS NOTED. DIALYSIS DOUBLE LUMEN ACCESS NOTED TO RIGHT UPPER CHEST WITH NO COMPLICATIONS NOTED. PATIENT GIVEN SANDWICH TRAY AND HELPED TO SET THE TRAY UP. PATIENT REQUESTED APPLE JUICE AND PEANUT BUTTER. PATIENT VERBALIZED BOTH WOULD BE GIVEN. INTIAL ASSESSMENT, MEDICATION ADMINISTRATION, AND INTERVIEW COMPLETED AT THIS TIME. PATIENT TOLERATED WELL. PATIENT DENIES ANY OTHER NEEDS. BED IN LOW POSITION WITH WHEELS LOCKED WITH RAILS UP X2 AND CALL LIGHT WITHIN REACH. BED ALARM ON.
--- NOTE | 2023-06-24 22:00 | NUR ---
SOUP PERSON HOSPITALIST IN TO SEE PATIENT AT THIS TIME.
--- NOTE | 2023-06-24 22:47 | NUR ---
PATIENT TRANSPORTED VIA WHEELCHAIR TO CT AT THIS TIME.
--- NOTE | 2023-06-24 22:56 | NUR ---
PATIENT RETURNED TO ROOM FROM CT. PATIENT RESTING IN BED WITH NO COMPLICATIONS NOTED. PATIENT DENIES ANY NEEDS. BED IN LOW POSITION WITH WHEELS LOCKED WITH RAILS UP X2 AND CALL LIGHT WITHIN REACH. BED ALARM ON.
[2023-06-24 23:50] VITALS: BP 131/87; PULSE 94; TEMP 97.3
--- NOTE | 2023-06-24 23:51 | NUR ---
Vancomycin Initial Dosing Pharmacy Note Ordering provider: Mani Saunders MD Indication/duration: UTI Relevant comorbidities: CKD on dialysis LABS: WBC=31.7 Recommendation: Will dose based on levels Loading dose: 1.75 grams Maintenance dose: None Trough goal: 10-15 ug/mL
[2023-06-24 23:53] VITALS: BP 127/87; PULSE 90; TEMP 97.6
[2023-06-24 23:54] VITALS: BP 131/87; PULSE 94; TEMP 97.3
[2023-06-25] VITALS (13 sets, daily range): BP systolic 116–149; BP diastolic 77–99; PULSE 77–98; TEMP 97.6–98.5
[2023-06-25] MEDS ORDERED: Vancomycin 1.75 GM,Special Dose/Pharmacy Prepared 1.75 GM in NS 500 ML IV ONE (01:00)
[2023-06-25 07:48] LABS: HEMOGLOBIN 10.8 g/dl (13.5-18.0); MEAN CELL VOLUME 95 fl (80.0-100.0); MEAN CORPUSCULAR HEMOGLOBIN 30 pg (27-31); MEAN CORPUSCULAR HGB CONC 31 g/dl (33.0-37.0); MEAN PLATELET VOLUME 11.1 fl (7.4-10.4); PLATELET COUNT 145 K/mm3 (130-400); RED BLOOD COUNT 3.63 M/mm3 (4.20-5.60); REDCELL DISTRIBUTION WIDTH-CV 14.8 % (11.5-14.5)
[2023-06-25 07:49] LABS: HEMATOCRIT 34.6 % (42.0-52.0)
[2023-06-25 07:57] LABS: ALBUMIN 3.1 gm/dL (3.4-4.8); CALCIUM 7.1 mg/dL (8.4-10.2); CREATININE, serum 7.96 mg/dL (0.72-1.25); MAGNESIUM 1.8 mg/dL (1.6-2.6); PHOSPHOROUS 5.3 mg/dL (2.3-4.7)
[2023-06-25 07:59] LABS: POTASSIUM 5.8 mmol/L (3.5-4.5)
[2023-06-25] MEDS ORDERED: *Vancomycin Dosing Protocol IV SCH (09:00)
[2023-06-25 10:14] LABS: NEUTROPHILS 14 % (42.0-75.2)
[2023-06-25 10:15] LABS: LYMPHOCYTE 83 % (20.0-51.0); OVALOCYTES 1+; PLATELET ESTIMATE NORMAL (NORMAL); SCHISTOCYTES 1+
--- NOTE | 2023-06-25 11:14 | NUR ---
Patient is alert and oriented x4. Shift assessment complete this morning. Gait is unsteady, patient noted to not be able to balance and sways when walking. HD catheter intact in right IJ, dressing is CDI. Patient urinating yellow/cloudy urine. +3 edema noted to bilateral lower extremities. Tolerating food and fluids well. Noted to be drowsy and falling asleep mid conversation per PA student. Patient noted to fall asleep on toilet. Call light within reach, bed alarm on. All needs met at this time.
[2023-06-25] MEDS ORDERED: Heparin 1,000 UNITS/ML 10 ML Multi-Dose VIAL ICA SCH (12:45)
[2023-06-25] MEDS ORDERED: Heparin 1,000 UNITS/ML 10 ML Multi-Dose VIAL IV SCH (12:45)
--- NOTE | 2023-06-25 13:11 | NUR ---
D: Initial visit: Construction Safety Manager stopped by room on rounds. Pt was sitting on the side of the bed finishing eating. A: Pt was falling asleep while eating and when finished Construction Safety Manager asked him if he wanted to lay down. He then laid down and said that felt better. Pt stated he had no needs right now. P: Construction Safety Manager informed pt that if he needed anything from the gas meter mechanic area that he can let his nurse know. Construction Safety Manager will follow up as needed.
[2023-06-25] MEDS ORDERED: ASPIRIN 81M81 MG/TA2 PO (15:44)
--- NOTE | 2023-06-25 15:48 | NUR ---
Patient off unit for dialysis at 1235.
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
--- NOTE | 2023-06-25 16:45 | NUR ---
Dialysis Note Pt arrived to tx via WC. Uf goal set for 2.4 and 2.4 removed. pt tolerated tx well. Pt dcd back to room via WC.
--- NOTE | 2023-06-25 18:45 | NUR ---
PATIENT RESTING IN BED WITH TV ON WITH NO FAMILY PRESENT WITH NO ACUTE DISTRESS NOTED. PATIENT ON ROOM AIR. ZOSYN INFUSING INTO RIGHT AC WITH NO COMPLICATIONS NOTED. PATIENT DENIES ANY NEEDS AT THIS TIME. PATIENT CARE ASSUMED FROM LETICIA BRAY. BED IN LOW POSITION WITH WHEELS LOCKED WITH RAILS UP X3 AND CALL LIGHT WITHIN REACH. BED ALARM ON.
--- NOTE | 2023-06-25 19:29 | NUR ---
Patient remains stable. Tolerated dialysis well per peritoneal dialysis registered nurse. Patient coughing and noted to cough up jonathan sized dark red mucus. Orders obtained for sputum culture. No complaints of pain at this time. Zosyn infusing at 25ml/hr through right AC IV. Call light within reach, all needs met at this time. Patient handoff complete to night RN.
--- NOTE | 2023-06-25 20:15 | NUR ---
PATIENT RESTING IN BED WITH TV ON WITH NO FAMILY PRESENT WITH NO ACUTE DISTRESS NOTED. PATIENT ON ROOM AIR. ZOSYN INFUSING INTO [facility] AC WITH NO COMPLICATIONS NOTED. DIALYSIS CATHETER INTACT TO RIGHT UPPER CHEST. ASSESSMENT AND MEDICATION ADIMISTRATION COMPLETED AT THIS TIME. PATIENT C/O PAIN. PO NORCO GIVEN PER MD ORDER. PATIENT TOLERATED WELL. ALL NEEDS MET. BED IN LOW POSITION WITH WHEELS LOCKED WITH RAILS UP X3 AND CALL LIGHT WITHIN REACH. BED ALARM ON.
[2023-06-26] VITALS (12 sets, daily range): BP systolic 110–124; BP diastolic 77–88; PULSE 79–88; TEMP 97.6–98.4
[2023-06-26 07:11] LABS: HEMOGLOBIN 11.1 g/dl (13.5-18.0); MEAN CELL VOLUME 95 fl (80.0-100.0); MEAN CORPUSCULAR HEMOGLOBIN 30 pg (27-31); MEAN CORPUSCULAR HGB CONC 31 g/dl (33.0-37.0); MEAN PLATELET VOLUME 10.8 fl (7.4-10.4); PLATELET COUNT 144 K/mm3 (130-400); RED BLOOD COUNT 3.74 M/mm3 (4.20-5.60); REDCELL DISTRIBUTION WIDTH-CV 14.6 % (11.5-14.5)
[2023-06-26 07:13] LABS: HEMATOCRIT 35.4 % (42.0-52.0)
[2023-06-26 07:22] LABS: CALCIUM 7.3 mg/dL (8.4-10.2); CREATININE, serum 6.46 mg/dL (0.72-1.25)
[2023-06-26 08:13] LABS: EOSINOPHIL 1 % (0-4); NEUTROPHILS 12 % (42.0-75.2)
[2023-06-26 08:14] LABS: LYMPHOCYTE 84 % (20.0-51.0); PLATELET ESTIMATE NORMAL (NORMAL)
--- NOTE | 2023-06-26 08:55 | NUR ---
drug abuse worker recieved the DPOA-HC from 2019 listing son, Orestes Stover, and daughter, Bryanna as agents. SW placed this in chart as the one listing Vandana Seth from 2018 is not valid.
[2023-06-26] MEDS ORDERED: Famotidine 20 MG TAB PO SCH (09:00)
[2023-06-26] MEDS ORDERED: Polyethylene Glycol 3350 17 GM PDS PO SCH (11:00)
[2023-06-26] MEDS ORDERED: Heparin 1,000 UNITS/ML 10 ML Multi-Dose VIAL ICA SCH (17:00)
[2023-06-26] MEDS ORDERED: Heparin 1,000 UNITS/ML 10 ML Multi-Dose VIAL IV SCH (17:00)
--- NOTE | 2023-06-26 18:14 | NUR ---
Patient alert and oriented x4. Shift assessment complete this morning. Patient complained of nausea, PRN Zofran effective. Patient told PA student he had chest pain, Pepcid administered. EKG showed sinus rhythm. No further complaints of chest pain noted. Tolerating food and fluids well. Activity continues to be x1 with walker, ambulates to bathroom often. States it still hurts to urinate. Sputum culture collected earlier, sputum light brown and blood tinged, noted to be thin. Visitors at bedside earlier. Call light within reach, all needs met at this time.
--- NOTE | 2023-06-26 18:55 | NUR ---
PATIENT RESTING IN BED WATCHING TV WITH NO FAMILY PRESENT WITH NO ACUTE DISTRESS NOTED. PATIENT ON ROOM AIR. ZOSYN INFUSING INTO RIGHT AC WITH NO COMPLICATIONS NOTED. PATIENT DENIES ANY NEEDS AT THIS TIME. PATIENT CARE ASSUMED FROM LETICIA BRAY. TRAY REMOVED FROM ROOM. PATIENT ATE 100%. BED IN LOW POSITION WITH WHEELS LOCKED WITH RAILS UP X3 AND CALL LIGHT WITHIN REACH. BED ALARM ON.
--- NOTE | 2023-06-26 22:00 | NUR ---
PATIENT RESTING IN BED WITH TV ON WITH NO ACUTE DISTRESS NOTED. PATIENT ON ROOM AIR. ASSESSMENT AND MEDICATION ADMINISTRATION COMPLETED AT THIS TIME. PATIENT TOLERATED WELL. PATIENT DENIES ANY NEEDS AT THIS TIME. BED IN LOW POSITION WITH WHEELS LOCKED WITH RAILS UP X3 AND CALL LIGHT WITHIN REACH. BED ALARM ON.
[2023-06-27] VITALS (12 sets, daily range): BP systolic 104–136; BP diastolic 70–93; PULSE 81–93; TEMP 97.4–98.5
[2023-06-27 06:43] LABS: HEMATOCRIT 37.4 % (42.0-52.0); HEMOGLOBIN 11.5 g/dl (13.5-18.0); MEAN CELL VOLUME 97 fl (80.0-100.0); MEAN CORPUSCULAR HEMOGLOBIN 30 pg (27-31); MEAN CORPUSCULAR HGB CONC 31 g/dl (33.0-37.0); MEAN PLATELET VOLUME 11.3 fl (7.4-10.4); PLATELET COUNT 149 K/mm3 (130-400); RED BLOOD COUNT 3.86 M/mm3 (4.20-5.60); REDCELL DISTRIBUTION WIDTH-CV 14.6 % (11.5-14.5)
[2023-06-27 07:03] LABS: CALCIUM 7.2 mg/dL (8.4-10.2); CREATININE, serum 7.55 mg/dL (0.72-1.25)
[2023-06-27 07:08] LABS: POTASSIUM 6.3 mmol/L (3.5-4.5)
[2023-06-27 07:18] LABS: EOSINOPHIL 1 % (0-4); LYMPHOCYTE 88 % (20.0-51.0); NEUTROPHILS 9 % (42.0-75.2); PLATELET ESTIMATE NORMAL (NORMAL)
[2023-06-27 08:23] LABS: PATHOLOGY DIFF REVIEW OK +
--- NOTE | 2023-06-27 11:40 | NUR ---
Dialysis Note Pt arrived via WC. Uf goal set for 2.0 kg and 2 .0 kg removed. Pt dcd back to room via WC. No concerns voiced.
--- NOTE | 2023-06-27 20:30 | NUR ---
Initial shift assessment done- drowsy..just waking up after a nap,, Dialysis catheter to right chest, requesting alot of food at this time{ states did not get supper tonight} will give sandwich box, ice cream/pudding etc. Bed alarm on- will call to get up.
[2023-06-28 00:14] VITALS: BP_SYST 136
[2023-06-28 03:41] VITALS: BP 138/94; PULSE 82; TEMP 98.1
[2023-06-28 03:59] VITALS: BP_SYST 138
--- NOTE | 2023-06-28 05:45 | NUR ---
Woke up fairly confused during the night-- states he thought he was home smoking a cigarette, states he is having very vivid dreams -- awake now and did request some jello but immedicately after eating had nausea- did give some Zofran,, Did get up to bathroom twice last night with walker and assist, had some urine and small soft stool . At midnight was given [place] and melatonin per request for abd, all over pain/insomnia
[2023-06-28 07:16] VITALS: BP 123/82; PULSE 88; TEMP 97.8
[2023-06-28 08:29] VITALS: BP_SYST 123
--- NOTE | 2023-06-28 08:35 | NUR ---
ASSESSMENT COMPLETE. PER PULVERIZER TENDER NURSE, STATED THAT PATIENT SEEMED A LITTLE CONFUSED AT TIMES. TALKED ABOUT HAVING WEIRD DREAMS AND TROUBLE SLEEPING. ASKED FOR PAIN MEDICATION THIS MORNING FROM DAY SHIFT NURSE. HAS NORCO AVAILABLE. PAIN IS LOCATED IN HIS ABDOMEN. VSS. WILL REASSESS PAIN.
--- NOTE | 2023-06-28 10:12 | NUR ---
PT DISCHARGE WAS DONE BY VERONICA QUESADA. PT WAS ASKED TO SIGN PAPERS ACKNOWLEDGING THAT DISCHARGE AND EDUCATION WAS DONE,; PT REFUSED AND WALKED OUT WITHOUT HIS DISCHARGE PAPERWORK. STAFF TRIED TO REMIND HIM TO TAKE HIS PAPERWORK WITH HIM AND ASK FOR THE SIGNATURES A SECOND TIME, BUT PT KEPT WALKING OUT AND SAID "NOPE, YOU'LL BE HEARING FROM ME"
--- NOTE | 2023-06-28 10:28 | NUR ---
PATIENT REFUSED TO SIGN DISCHARGE PAPERWORK. STORMED OUT OF THE HOSPITAL WITH SON. IV DISCONTINUED.
--- NOTE | 2023-06-28 10:56 | NUR ---
table worker packager attended clinical rounding and was informed pt can discharge home today. SW completed IM from Medicare with patient. He signed and was provided a copy. Original in chart. Pt reports he needs assistance obtaining a ride from family. SW left a voicemail with radha Gould. SW could not get through to Sofya, dtr [phone]. SW spoke with son, Orestes and he reports he is at work until 5pm. He states he will get in touch with his sisters. He provides another number for Sofya: [phone] and this was not a valid number. OUMAR observed patient walk out with a young man for discharge. Discharge Plan: Home
== END 2023-06-28 10:20 | disposition home or self-care (01) | DRG 314 ==
LOC: MEDICAL 19:26
PROVIDERS: Internal Medicine; Physician Assistant; ADMIT Internal Medicine
PROC: 5A1D70Z Performance of Urinary Filtration, Intermittent, Less than 6 Hours Per Day (ICD-10-PCS; principal; 2023-06-26)
DX: T80.211A Bloodstream infection due to central venous catheter, initial encounter (principal); N18.6 End stage renal disease; C85.90 Non-Hodgkin lymphoma, unspecified, unspecified site; I50.22 Chronic systolic (congestive) heart failure; R04.2 Hemoptysis; N13.6 Pyonephrosis; N10 Acute pyelonephritis; F15.90 Other stimulant use, unspecified, uncomplicated; D72.829 Elevated white blood cell count, unspecified; K21.9 Gastro-esophageal reflux disease without esophagitis; K59.00 Constipation, unspecified; Y83.8 Other surgical procedures as the cause of abnormal reaction of the patient, or of later complication, without mention of misadventure at the time of the procedure; E87.5 Hyperkalemia; F17.210 Nicotine dependence, cigarettes, uncomplicated; Z99.2 Dependence on renal dialysis; Z88.1 Allergy status to other antibiotic agents; Z88.2 Allergy status to sulfonamides; Z95.0 Presence of cardiac pacemaker; Z88.8 Allergy status to other drugs, medicaments and biological substances; Z23 Encounter for immunization
CPT/HCPCS: J1644; J2405; J2543; J3370; J7040; Q3014

== ENCOUNTER 2023-11-11 18:26 | Emergency (ER) | payer MEDICARE, MEDICAID ==
[~2023-11-11] VITALS: Ht 182.9 cm; Wt 65.5 kg
[~2023-11-11 18:26] MED LIST changes: +ASPIRIN 81M81 MG/TA2 PO
[2023-11-11 18:32] VITALS: TEMP 98.2
[2023-11-11 19:22] LABS: HEMOGLOBIN 11.2 g/dl (13.5-18.0); MEAN CELL VOLUME 94 fl (80.0-100.0); MEAN CORPUSCULAR HEMOGLOBIN 29 pg (27-31); MEAN CORPUSCULAR HGB CONC 31 g/dl (33.0-37.0); MEAN PLATELET VOLUME 10.9 fl (7.4-10.4); PLATELET COUNT 177 K/mm3 (130-400); RED BLOOD COUNT 3.83 M/mm3 (4.20-5.60); REDCELL DISTRIBUTION WIDTH-CV 15.8 % (11.5-14.5)
[2023-11-11 19:29] LABS: ALBUMIN 3.1 g/dL (3.4-4.8); BILIRUBIN,TOTAL 0.8 mg/dL (0.2-1.2); CALCIUM 7.9 mg/dL (8.4-10.2); CREATININE, serum 8.33 mg/dL (0.72-1.25); POTASSIUM 4.5 mEq/L (3.5-4.5); TOTAL PROTEIN 7.3 g/dl (6.2-8.1)
[2023-11-11 19:32] LABS: HEMATOCRIT 36.1 % (42.0-52.0)
[2023-11-11 20:01] LABS: ANISOCYTOSIS 1+; LYMPHOCYTE 84 % (20.0-51.0); NEUTROPHILS 16 % (42.0-75.2); OVALOCYTES 1+; PLATELET ESTIMATE NORMAL (NORMAL)
[2023-11-11 20:27] LABS: COLLECTION METHOD CLEAN CATCH
[2023-11-11 20:35] LABS: URINE APPEARANCE CLEAR (CLEAR/HAZY); URINE BLOOD NEGATIVE (NEGATIVE); URINE COLOR YELLOW (YELLOW); URINE GLUCOSE NEGATIVE (NEGATIVE); URINE KETONE NEGATIVE (NEGATIVE); URINE NITRATE NEGATIVE (NEGATIVE); URINE PROTEIN(semi-quant) 2+ (NEGATIVE); URINE UROBILINOGEN 0.2 E.U/dL (0.2-1.0)
[2023-11-11 21:45] VITALS: BP 112/76; PULSE 74
== END 2023-11-11 21:55 | disposition home or self-care (01) ==
LOC: COL.ER 18:26
PROVIDERS: Family Medicine
DX: R35.0 Frequency of micturition (principal); R53.83 Other fatigue; N18.6 End stage renal disease; Z99.2 Dependence on renal dialysis

== ENCOUNTER 2023-11-14 15:03 | Emergency (ER) | payer MEDICARE, MEDICAID ==
[~2023-11-14] VITALS: Ht 172.7 cm; Wt 65.5 kg
[2023-11-14] MEDS ORDERED: NS 1,000 ML IV ONE (15:15)
[2023-11-14] MEDS ORDERED: Ondansetron 4 MG/2 ML VIAL IV ONE (15:30)
[2023-11-14] MEDS ORDERED: fentaNYL 100 ML IV ONE (15:30)
[2023-11-14] MEDS ORDERED: LR 1,000 ML IV ONE (15:30)
[2023-11-14 15:46] LABS: COLLECTION METHOD CLEAN CATCH
[2023-11-14 15:51] LABS: HEMOGLOBIN 11.2 g/dl (13.5-18.0); MEAN CELL VOLUME 96 fl (80.0-100.0); MEAN CORPUSCULAR HEMOGLOBIN 29 pg (27-31); MEAN CORPUSCULAR HGB CONC 30 g/dl (33.0-37.0); MEAN PLATELET VOLUME 10.7 fl (7.4-10.4); PLATELET COUNT 245 K/mm3 (130-400); RED BLOOD COUNT 3.85 M/mm3 (4.20-5.60); REDCELL DISTRIBUTION WIDTH-CV 15.3 % (11.5-14.5)
[2023-11-14 15:56] LABS: URINE APPEARANCE CLEAR (CLEAR/HAZY); URINE BLOOD TRACE (NEGATIVE); URINE COLOR YELLOW (YELLOW); URINE GLUCOSE NEGATIVE (NEGATIVE); URINE KETONE NEGATIVE (NEGATIVE); URINE NITRATE NEGATIVE (NEGATIVE); URINE PROTEIN(semi-quant) 2+ (NEGATIVE); URINE UROBILINOGEN 0.2 E.U/dL (0.2-1.0)
[2023-11-14 16:07] LABS: HEMATOCRIT 36.9 % (42.0-52.0)
[2023-11-14 16:08] LABS: ALANINE AMINOTRANSFERASE 52 U/L (0-55); ALBUMIN 3.1 g/dL (3.4-4.8); ALKALINE PHOSPHATASE 167 U/L (40-150); ANION GAP 27 mmol/L (7-16); AST,SGOT 92 U/L (5-34); BILIRUBIN,TOTAL 0.8 mg/dL (0.2-1.2); CALCIUM 7.7 mg/dL (8.4-10.2); CHLORIDE 98 mEq/L (98-107); CREATININE, serum 12.49 mg/dL (0.72-1.25); GLUCOSE 117 mg/dL (70-99); SODIUM 136 mEq/L (136-145); TOTAL PROTEIN 7.3 g/dl (6.2-8.1)
[2023-11-14 16:12] LABS: BLOOD UREA NITROGEN > 125 mg/dL (8-26)
[2023-11-14 16:12] LABS: ARTERIAL BLD GAS O2 SATURATION 97.4 % (92-100); ARTERIAL BLD GAS TCO2 CT 13.5; ARTERIAL BLOOD GAS BASE EXCESS -16.7 (-2-2); ARTERIAL BLOOD GAS HCO3 12.3 meq/L (22-26); ARTERIAL BLOOD GAS PCO2 41.2 mmHg (35-45); ARTERIAL BLOOD GAS PO2 135.3 mmHg (80-100); ARTERIAL BLOOD GAS pH 7.09 (7.35-7.45)
[2023-11-14 16:14] LABS: C-REACTIVE PROTEIN 34.99 mg/dL (0.00-0.50); POTASSIUM 6.6 mEq/L (3.5-4.5)
[2023-11-14] MEDS ORDERED: Dextrose 50% Water 25 GM/50 ML SYRINGE IV ONE (16:30)
[2023-11-14] MEDS ORDERED: Albuterol 0.083% Neb Soln 2.5 MG/3 ML UD IH ONE (16:30)
[2023-11-14] MEDS ORDERED: NS 500 ML IV ONE (16:30)
[2023-11-14] MEDS ORDERED: Sodium Bicarbonate 8.4% 50 MEQ/50 ML SYRINGE IV ONE (16:30)
[2023-11-14] MEDS ORDERED: Insulin Regular Human (NovoLIN R/HumuLIN R) IV ONE (16:30)
[2023-11-14] MEDS ORDERED: Midazolam 100 ML IV ONE (16:30)
[2023-11-14 16:36] LABS: NEUTROPHILS 9 % (42.0-75.2)
[2023-11-14 16:39] LABS: LYMPHOCYTE 100 % (20.0-51.0)
[2023-11-14] MEDS ORDERED: Cefepime 2 G in Water For Injection,Sterile 20 ML IV ONE (16:45)
[2023-11-14] MEDS ORDERED: Vasopressin 20 UNITS in NS 100 ML IV PRN (16:45)
[2023-11-14] MEDS ORDERED: Sodium Bicarbonate/Water,Steri 1,150 ML IV SCH (17:45)
[2023-11-14 18:20] VITALS: BP 102/71; PULSE 98; TEMP 99.1
[2023-11-15 08:09] LABS: PATHOLOGY DIFF REVIEW OK
== END 2023-11-14 18:20 | disposition short-term general hospital (02) ==
LOC: COL.ER 15:03
PROVIDERS: Family Medicine
DX: R41.82 Altered mental status, unspecified (principal); N18.6 End stage renal disease; E87.5 Hyperkalemia; E87.20 Acidosis, unspecified; Z99.2 Dependence on renal dialysis
CPT/HCPCS: A4314; J0612; J0692; J1815; J2251; J2704; J3010; J7030; J7040; J7060; J7070

== ENCOUNTER 2023-12-27 16:01 | Inpatient (IN) | payer MEDICARE, MEDICAID ==
[~2023-12-27] VITALS: Ht 180.3 cm; Wt 65.5 kg
[2023-12-27 16:05] VITALS: TEMP 99.1
[2023-12-27 16:25] LABS: MEAN CELL VOLUME 96 fl (80.0-100.0); MEAN CORPUSCULAR HGB CONC 31 g/dl (33.0-37.0); MEAN PLATELET VOLUME 9.7 fl (7.4-10.4); PLATELET COUNT 173 K/mm3 (130-400); RED BLOOD COUNT 2.95 M/mm3 (4.20-5.60); REDCELL DISTRIBUTION WIDTH-CV 16.4 % (11.5-14.5)
[2023-12-27 16:35] LABS: HEMATOCRIT 28.4 % (42.0-52.0); HEMOGLOBIN 8.7 g/dl (13.5-18.0); MEAN CORPUSCULAR HEMOGLOBIN 29 pg (27-31)
[2023-12-27 17:25] LABS: BAND 1 % (0-10); LYMPHOCYTE 93 % (20.0-51.0); NEUTROPHILS 4 % (42.0-75.2); PLATELET ESTIMATE NORMAL (NORMAL)
[2023-12-27 17:26] LABS: ANISOCYTOSIS 1+
[2023-12-27 17:30] LABS: COLLECTION METHOD CLEAN CATCH
[2023-12-27 17:41] LABS: URINE APPEARANCE CLEAR (CLEAR/HAZY); URINE BLOOD NEGATIVE (NEGATIVE); URINE COLOR YELLOW (YELLOW); URINE GLUCOSE NEGATIVE (NEGATIVE); URINE KETONE NEGATIVE (NEGATIVE); URINE NITRATE NEGATIVE (NEGATIVE); URINE PROTEIN(semi-quant) 1+ (NEGATIVE); URINE UROBILINOGEN 0.2 E.U/dL (0.2-1.0)
[2023-12-27 18:30] LABS: ALANINE AMINOTRANSFERASE 49 U/L (0-55); ALBUMIN 2.8 g/dL (3.4-4.8); ALKALINE PHOSPHATASE 265 U/L (40-150); ANION GAP 12 mmol/L (7-16); AST,SGOT 35 U/L (5-34); BILIRUBIN,TOTAL 0.5 mg/dL (0.2-1.2); CALCIUM 8.2 mg/dL (8.4-10.2); CHLORIDE 106 mEq/L (98-107); CREATININE, serum 7.77 mg/dL (0.72-1.25); GLUCOSE 107 mg/dL (70-99); SODIUM 134 mEq/L (136-145); TOTAL PROTEIN 6.6 g/dl (6.2-8.1)
[2023-12-27] MEDS ORDERED: LORazepam 2 MG/ML 1 ML VIAL IV PRN (18:30)
[2023-12-27] MEDS ORDERED: OLANZapine 2.5 MG,Water For Injection,Sterile 0.5 ML IM PRN (18:30)
[2023-12-27 18:32] LABS: BLOOD UREA NITROGEN > 125 mg/dL (8-26)
[2023-12-27 18:34] LABS: POTASSIUM 7.9 mEq/L (3.5-4.5)
[2023-12-27] MEDS ORDERED: Patiromer 8.4 G Oral Susp **** subs to Sodium Zirconium Cyclosilicate 10 G Oral Susp PO SCH (18:58)
[2023-12-27] MEDS ORDERED: Insulin Regular Human (NovoLIN R/HumuLIN R) IV ONE (19:00)
[2023-12-27] MEDS ORDERED: Dextrose 50% Water 25 GM/50 ML SYRINGE IV ONE (19:00)
[2023-12-27] MEDS ORDERED: Calcium Gluconate 1,000 MG (4.65 mEq)/10 ML VIAL IV ONE (19:02)
[2023-12-27] MEDS ORDERED: Sodium Zirconium Cyclosilicate for Oral Susp 10 GM PACKET PO SCH (19:07)
[2023-12-27] MEDS ORDERED: Sodium Polystyrene Sulf Susp 15 GM/60 ML BOTTLE PO ONE (19:15)
[2023-12-27] MEDS ORDERED: Sodium Zirconium Cyclosilicate for Oral Susp 10 GM PACKET PO ONE (19:15)
--- NOTE | 2023-12-27 19:30 | NUR ---
Dr. Hull notified by phone of critical lab of K+ 7.9. VERONICA Nguyen at bedside to cosign for IV insulin as ordered.
[2023-12-27 20:25] LABS: ANION GAP 13 mmol/L (7-16); CALCIUM 8.3 mg/dL (8.4-10.2); CHLORIDE 106 mEq/L (98-107); GLUCOSE 137 mg/dL (70-99); SODIUM 134 mEq/L (136-145)
[2023-12-27 20:26] LABS: BLOOD UREA NITROGEN > 125 mg/dL (8-26)
[2023-12-27 20:27] LABS: POTASSIUM 7.6 mEq/L (3.5-4.5)
[2023-12-27 20:36] VITALS: BP 107/67; PULSE 99
[2023-12-27] MEDS ORDERED: NS 500 ML IV ONE (21:00)
[2023-12-27] MEDS ORDERED: Sodium Bicarbonate 8.4% 50 MEQ/50 ML SYRINGE IV ONE (21:00)
[2023-12-27] MEDS ORDERED: NS 1,000 ML IV ONE (21:00)
[2023-12-27] MEDS ORDERED: CALCIUM GLUCONATE IV ONE (21:15)
[2023-12-27] MEDS ORDERED: NS IV ONE (21:15)
[2023-12-27] MEDS ORDERED: [UNRECOGNIZED DRUG - OTHER] IV ONE (21:15)
[2023-12-27 23:09] LABS: CLOSTRIDIUM DIFF A/B NEG
--- NOTE | 2023-12-27 23:09 | NUR ---
report received from SOHAIL Gaona, care assumed at this time. pt is alert and oriented x4. denies chest pain and shortness of breath. IV in LW is patent, site is CDI. blanchable redness to bottom, skin intact. dialysis fistula in right chest, dressing CDI. IGLESIA with broken down fistula, right arm restriction. steristrips noted to left chest, CDI. pt had large liquid BM, full linen change and pericare provided. 2030- [facility] notified of recheck potassium level, new orders placed. order for transfer received. pt aware of transfer and has no further needs, questions or concerns at this time 2224- EMS arrival for transfer, pt discharged at this time. 2299-report called to Sohail Ruiz at [facility], no further questions. care passed at this time.
== END 2023-12-27 22:25 | disposition short-term general hospital (02) | DRG 640 ==
LOC: COL.ER 16:01 → MEDICAL 17:09
PROVIDERS: Family Medicine; Internal Medicine; ADMIT Internal Medicine
DX: E87.5 Hyperkalemia (principal); N18.6 End stage renal disease; C85.90 Non-Hodgkin lymphoma, unspecified, unspecified site; I50.22 Chronic systolic (congestive) heart failure; D72.829 Elevated white blood cell count, unspecified; K21.9 Gastro-esophageal reflux disease without esophagitis; Z20.822 Contact with and (suspected) exposure to COVID-19; R19.7 Diarrhea, unspecified; R33.9 Retention of urine, unspecified; Z99.2 Dependence on renal dialysis; Z88.1 Allergy status to other antibiotic agents; Z88.2 Allergy status to sulfonamides; Z88.8 Allergy status to other drugs, medicaments and biological substances; Z95.0 Presence of cardiac pacemaker; Z87.440 Personal history of urinary (tract) infections; Z23 Encounter for immunization
CPT/HCPCS: A9270; J0612; J1815

== ENCOUNTER 2024-01-02 10:18 | Emergency (ER) | payer MEDICARE, MEDICAID ==
[~2024-01-02] VITALS: Wt 68.2 kg
[2024-01-02 10:20] VITALS: TEMP 98.2
[2024-01-02 11:18] VITALS: BP 110/73; PULSE 89
== END 2024-01-02 11:18 | disposition home or self-care (01) ==
LOC: COL.ER 10:18
DX: R06.02 Shortness of breath (principal); I13.2 Hypertensive heart and chronic kidney disease with heart failure and with stage 5 chronic kidney disease, or end stage renal disease; N18.6 End stage renal disease; I50.9 Heart failure, unspecified; E87.5 Hyperkalemia; Z99.2 Dependence on renal dialysis

== ENCOUNTER 2024-01-13 06:43 | Inpatient (IN) | payer MEDICARE, MEDICAID ==
[~2024-01-13] VITALS: Ht 182.9 cm; Wt 73.0 kg
[2024-01-13 07:11] LABS: MEAN CELL VOLUME 101 fl (80.0-100.0); MEAN CORPUSCULAR HGB CONC 29 g/dl (33.0-37.0); MEAN PLATELET VOLUME 9.5 fl (7.4-10.4); PLATELET COUNT 208 K/mm3 (130-400); RED BLOOD COUNT 2.95 M/mm3 (4.20-5.60); REDCELL DISTRIBUTION WIDTH-CV 16.3 % (11.5-14.5)
[2024-01-13 07:15] LABS: HEMATOCRIT 29.9 % (42.0-52.0); HEMOGLOBIN 8.7 g/dl (13.5-18.0); MEAN CORPUSCULAR HEMOGLOBIN 29 pg (27-31)
[2024-01-13 07:26] LABS: INR 1.1 (0.8-3.0); PROTHROMBIN TIME 12.3 SECONDS (9.7-12.8)
[2024-01-13 07:28] LABS: ALBUMIN 2.7 g/dL (3.4-4.8); BILIRUBIN,TOTAL 0.5 mg/dL (0.2-1.2); CALCIUM 8.6 mg/dL (8.4-10.2); CREATININE, serum 4.15 mg/dL (0.72-1.25); TOTAL PROTEIN 6.8 g/dl (6.2-8.1)
[2024-01-13 07:28] LABS: PARTIAL THROMBOPLASTIN TIME 29.4 SECONDS (26.0-37.0)
[2024-01-13 07:54] LABS: TROPONIN-I 0.127 ng/mL (0.00-0.033)
[2024-01-13 08:09] LABS: ANISOCYTOSIS 1+; BAND 2 % (0-10); HYPOCHROMIA 1+; LYMPHOCYTE 89 % (20.0-51.0); NEUTROPHILS 9 % (42.0-75.2); OVALOCYTES 1+; PLATELET ESTIMATE NORMAL (NORMAL)
[2024-01-13] MEDS ORDERED: Bumetanide 1 MG/4 ML VIAL IV ONE (09:00)
[2024-01-13 10:33] VITALS: BP 114/70; PULSE 98; TEMP 98.1
--- NOTE | 2024-01-13 11:42 | NUR ---
1030-PT ADMITTED FROM ER TO 317 FOR CHF. PT STOOD FROM WHEELCHAIR TO BED. PT IS AXOX4. PT IS ON 2L NC. PT IS NOT ON TELE. PT ORIENTED TO ROOM AND FLOOR. CALL LIGHT GIVEN AND INSTRUCTED TO CALL WITH ALL NEEDS. PT IS A FALL RISK. FALL PRECAUTIONS IN PLACE AND BEDALARM ACTIVE. 1120-DIET ORDER RECEIVED FROM .
[2024-01-13 11:49] LABS: CLOSTRIDIUM DIFF A/B NEG
[2024-01-13 12:48] VITALS: BP_SYST 114
[2024-01-13] MEDS ORDERED: Acetaminophen 325 MG TAB PO PRN (13:00)
[2024-01-13] MEDS ORDERED: Ondansetron 4 MG/2 ML VIAL IV PRN (13:00)
[2024-01-13] MEDS ORDERED: Sodium Zirconium Cyclosilicate for Oral Susp 10 GM PACKET PO ONE (13:00)
[2024-01-13] MEDS ORDERED: Metoprolol Tartrate 25 MG TAB PO SCH (13:01)
[2024-01-13] MEDS ORDERED: Heparin 1,000 UNITS/ML 10 ML Multi-Dose VIAL ICA SCH (13:15)
[2024-01-13] MEDS ORDERED: Heparin 1,000 UNITS/ML 10 ML Multi-Dose VIAL IV SCH (13:15)
[2024-01-13] MEDS ORDERED: cefTRIAXone 1 G in Water For Injection,Sterile 10 ML IV SCH (13:15)
[2024-01-13 15:23] VITALS: BP 111/68; PULSE 89; TEMP 97.7
[2024-01-13] MEDS ORDERED: Heparin 5,000 UNITS/ML 1 ML VIAL SQ SCH (16:00)
[2024-01-13 16:44] VITALS: BP_SYST 111
--- NOTE | 2024-01-13 19:20 | NUR ---
Patient resting in bed. Denies any pain at this time. Assissted patient to bathroom and back to bed. Denies any other needs. Assessment complete. IV in left hand flushes easliy without complications. Dialysis catheter is CDI. Call light and personal items in reach. Bed in low position and bed alarm on.
[2024-01-13 20:00] VITALS: BP 118/73; PULSE 108; TEMP 97.5
[2024-01-13 20:24] LABS: COLLECTION METHOD CLEAN CATCH
[2024-01-13 20:32] LABS: URINE APPEARANCE CLEAR (CLEAR/HAZY); URINE BLOOD NEGATIVE (NEGATIVE); URINE COLOR YELLOW (YELLOW); URINE GLUCOSE NEGATIVE (NEGATIVE); URINE KETONE NEGATIVE (NEGATIVE); URINE NITRATE NEGATIVE (NEGATIVE); URINE PROTEIN(semi-quant) 2+ (NEGATIVE); URINE UROBILINOGEN 0.2 E.U/dL (0.2-1.0)
[2024-01-13 20:33] LABS: PH >= 9.0 (5.0-8.5)
[2024-01-13 20:46] LABS: TRICYCLIC ANTIDEPRESS URINE NEGATIVE (NEGATIVE)
[2024-01-13 21:30] VITALS: BP_SYST 119
--- NOTE | 2024-01-13 23:02 | NUR ---
Hospitalist Brock called for patient request for something to help him sleep. Recieved new order for 3mg melatonin PRN QHS.
[2024-01-13] MEDS ORDERED: Melatonin 3 MG TAB PO PRN (23:15)
[2024-01-14] VITALS (12 sets, daily range): BP systolic 101–129; BP diastolic 61–77; PULSE 66–99; TEMP 96.8–98.3
[2024-01-14 06:13] LABS: MEAN CELL VOLUME 97 fl (80.0-100.0); MEAN CORPUSCULAR HGB CONC 30 g/dl (33.0-37.0); MEAN PLATELET VOLUME 9.7 fl (7.4-10.4); PLATELET COUNT 204 K/mm3 (130-400); RED BLOOD COUNT 2.91 M/mm3 (4.20-5.60)
[2024-01-14 06:28] LABS: CALCIUM 8.6 mg/dL (8.4-10.2); CREATININE, serum 5.41 mg/dL (0.72-1.25); MAGNESIUM 1.7 mg/dL (1.6-2.6); PHOSPHOROUS 3.8 mg/dL (2.3-4.7); POTASSIUM 5.3 mEq/L (3.5-4.5)
--- NOTE | 2024-01-14 06:35 | NUR ---
PT RESTING IN BED. PT IS ON 2L NC FOR COMFORT. PT IS NOT ON TELE. PT IS AXOX2 AND FORGETFUL. PT IS A FALL RISK. BEDALARM ACTIVE. PT HAS CALL LIGHT WITHIN REACH AND INSTRUCTED TO CALL [facility] ALL NEEDS.
[2024-01-14 06:41] LABS: TROPONIN-I 0.14 ng/mL (0.00-0.033)
[2024-01-14 06:49] LABS: HEMATOCRIT 28.3 % (42.0-52.0); HEMOGLOBIN 8.5 g/dl (13.5-18.0); MEAN CORPUSCULAR HEMOGLOBIN 29 pg (27-31)
--- NOTE | 2024-01-14 07:07 | NUR ---
Critial troponin of 0.140 reported to day nurse Kavin. Stated she will report critical troponin to Hospitalist Dr. Saunders.
[2024-01-14 07:54] LABS: ANISOCYTOSIS 1+; BAND 2 % (0-10); EOSINOPHIL 3 % (0-4); LYMPHOCYTE 93 % (20.0-51.0); NEUTROPHILS 3 % (42.0-75.2)
[2024-01-14 07:55] LABS: OVALOCYTES 1+; PLATELET ESTIMATE NORMAL (NORMAL)
[2024-01-14] MEDS ORDERED: Albumin (Human) 100 ML IV SCH ×2 (08:45→09:45)
[2024-01-14] MEDS ORDERED: Heparin 1,000 UNITS/ML 10 ML Multi-Dose VIAL IV SCH (09:45)
[2024-01-14] MEDS ORDERED: Heparin 1,000 UNITS/ML 10 ML Multi-Dose VIAL ICA SCH (09:45)
[2024-01-14] MEDS ORDERED: PROAMATINE2.5 MG PO (11:26)
[2024-01-14] MEDS ORDERED: PHOS LO PO (11:27)
--- NOTE | 2024-01-14 11:31 | NUR ---
0945-CALLED [facility] TO CLARIFY PT'S HOME MEDICATIONS. SPOKE TO THE PHARMACIST AND WAS INFORMED OF THE LAST TWO MEDS PICKED UP AND NOTHING ELSE HAS BEEN PICKED UP SINCE 2022. MED LIST UPDATED.
--- NOTE | 2024-01-14 12:14 | NUR ---
0850-PT TAKEN DOWN TO HD.
--- NOTE | 2024-01-14 12:23 | NUR ---
NOTIFIED BY TELE THAT PT BRADYED DOWN TO THE 30S FOR ABOUT A MIN, THEN RETURNED TO 70'S. WENT TO HD TO ASSESS PT. PT RESTING, ASYMPTAMATIC, OTHER VSS. HD RN NOTIFIED. THIS RN REVEIWED TELE IN [facility] AND SAW HR DOWN TO 33 AND PRIOR A FIVE BEAT V-RUN. RODOLFO MARTIN WITH CARDIOLOGY NOTIFIED.
--- NOTE | 2024-01-14 12:37 | NUR ---
1145-SPOKE WITH ARASELI SUAREZ WITH PTS WATER TREATMENT SPECIALIST TO CLARIFY PT'S RECENT HD RUNS AND VANCOMYCIN DOSES. WAS INFORMED HE COMPLETED HIS ABX DOSES AND LAST HD TREATMENT WAS 01/10/24. UPDATED.
[2024-01-14] MEDS ORDERED: Calcium Acetate 667 MG TAB/CAP PO SCH (14:00)
--- NOTE | 2024-01-14 14:33 | NUR ---
other sales support worker attempted x2 to meet with pt to complete intake assessment. OUMAR called pt's daughter, Bryanna [phone] to discuss discharge planning. Bryanna had no idea pt was was admitted. SW provided minimal medical update and urged her to call the nurse's station for a more thorough update. Bryanna confirmed pt lives alone in [place]. She reports pt's daughter, aSda was supposed to be staying with him and provided 24/7 care, but is not doing so. Bryanna reports they were searching for pt and could not find him, until now. Bryanna is unsure who pt's PCP is. She reports he obtains medications from [facility] with some difficulties. She confirmed pt's insurance as Medicare [employer] and Medicaid. SW advised his insurance should aid in covering most things. She reports that pt has been unable to access his [facility] fund account to draw money out of. Pt is typically independent with ADLS and usess a wheelchair and FWW for DME. Bryanna confirmed her and Orestes Stover, son [phone] as DPOA-HC. OUMAR is familiar with pt and notes the previously provided one was never uploaded to chart, so OUMAR located this is her email and placed this on the chart listing Orestes Stover as primary. Bryanna reports pt needs further assistance and did attempt to live with her, but "broke her rules." She reports that pt needs a "last cleaner home." OUMAR provided information on the [employer] waiver/programs or applying for housing waivers, but advised most have long wait lists. She verbalized understanding and reports pt would not go to a senior care. OUMAR spoke with wheat washer Gissel who reports pt needs a Life Vest. OUMAR obtained order from chart and faxed this to [facility]. Discharge Plan: likely home
--- NOTE | 2024-01-14 20:30 | NUR ---
UPON SHIFT ASSESSMENT, JEROME WAS AWAKE IN BED AND A&O X 4-NEUROS WNL. HE STATES, "I MUST BE GETIING BETTER BECAUSE I AM FEELING BETTER." VS ARE WNL, TELE IS NS. PATIENT DENIES CHEST PAIN OR SOA AT THIS TIME. DIFFUSE EDEMA NOTED AND PATIENT APPEARS SLIGHTLY JAUNDICE. AMBULATES TO RESTROOM AND HAS URINATED CLEAR YELLOW URINE. COUGH NOTED WITH TISSUES CONTAINING WHITE SPUTUM. PATIENT STATES NO NEEDS AT THIS TIME. CALL LIGHT WITHIN REACH, BED ALARM ON.
[2024-01-15] VITALS (7 sets, daily range): BP systolic 108–114; BP diastolic 54–66; PULSE 81–96; TEMP 97.4–98.4
--- NOTE | 2024-01-15 04:00 | NUR ---
PATIENT C/O OF WARMTH IN RLE. NO REDNESS OR PAIN NOTED, PERFORMED HANDHELD DOPPLER ON PEDAL PULSES-ALL WNL. VS ARE WNL.
--- NOTE | 2024-01-15 06:40 | NUR ---
PT RESTING IN BED. PT IS SR ON TELE. PT IS ON 2L NC FOR COMFORT. PT IS AXOX2 AND FORGETFUL. PT IS IN FALL PRECAUTIONS. PTS BEDALARM ACTIVE. PT HAS CALL LIGHT AND INSTURCTED TO CALL [facility] ALL NEEDS.
[2024-01-15 07:24] LABS: CALCIUM 8.3 mg/dL (8.4-10.2); CREATININE, serum 4.06 mg/dL (0.72-1.25); POTASSIUM 4.6 mEq/L (3.5-4.5)
[2024-01-15 07:28] LABS: MEAN CELL VOLUME 96 fl (80.0-100.0); MEAN CORPUSCULAR HGB CONC 31 g/dl (33.0-37.0); MEAN PLATELET VOLUME 9.7 fl (7.4-10.4); PLATELET COUNT 199 K/mm3 (130-400); RED BLOOD COUNT 2.77 M/mm3 (4.20-5.60)
[2024-01-15 07:35] LABS: HEMATOCRIT 26.6 % (42.0-52.0); HEMOGLOBIN 8.1 g/dl (13.5-18.0); MEAN CORPUSCULAR HEMOGLOBIN 29 pg (27-31)
--- NOTE | 2024-01-15 08:05 | NUR ---
PT SITTING UP EATING BREAKFAST. PT GIVEN HIS CELLPHONE FROM CHAR[facility]. DISCUSSED PLAN FOR THE DAY OF POSSIBLE HD, AND AWAITING PROVIDERS TO ROUND.
--- NOTE | 2024-01-15 08:53 | NUR ---
PT DOWN TO HD.
[2024-01-15] MEDS ORDERED: Magnesium Oxide 400 MG TAB PO SCH (09:00)
[2024-01-15 10:25] LABS: LYMPHOCYTE 89 % (20.0-51.0); NEUTROPHILS 9 % (42.0-75.2)
[2024-01-15 10:26] LABS: BAND 2 % (0-10); PLATELET ESTIMATE NORMAL (NORMAL)
--- NOTE | 2024-01-15 11:17 | NUR ---
OUMAR called [facility] to follow up on the Life Vest. They report needing further clincials from Dr. Carrillo. OUMAR faxed these.
--- NOTE | 2024-01-15 11:32 | NUR ---
PT WANTING TO LEAVE TODAY. NOTIFIED , WE ARE STILL WAITING ON THE LIFE VEST ORDERED BY CARDIOLOGY. THIS RN CALLED SW TO DISCUSS, SHE STATES SHE WILL FAX AND CALL [employer]. SW CALLED BACK AND STATED THE [employer] SAID IT WOULD BE ATLEAST AN HOUR BEFORE THEY COULD EVEN REVEIW THE DOCUMENTAION. PT UPDATED ON ABOVE. STATES HE WILL TALK W HIS DAUGHTER.
[2024-01-15] MEDS ORDERED: PHOS LO PO (11:46)
[2024-01-15] MEDS ORDERED: LOPRESSOR 225 MG/TAB PO (11:47)
[2024-01-15] MEDS ORDERED: MAG-OX 400400 MG/TAB PO (11:47)
--- NOTE | 2024-01-15 12:53 | NUR ---
PT INSISTING ON LEAVE TODAY. DISCUSSED WITH HIM THE NEED FOR HIS LIFEVEST, AND THE DOCTORS RECCOMEND HE STAY UNTIL IT ARRIVES. PT REFUSING. NOTIFIED. IV AND TELE REMOVED. AMA FORM DISCUSSED AND SIGNED. DISCHARGE PAPERS GIVEN AND NEW PRESCRIPTIONS DISCUSSED. PT WHEELED OUT BY PCT. DAUGHTER PICKED UP PT AT [facility].
--- NOTE | 2024-01-15 13:22 | NUR ---
OUMAR informed pt is leaving AMA. OUMAR faxed discharge orders to [facility] and noted for them to attempt to deliver to pt's home. Discharge Plan: home
--- NOTE | 2024-01-15 14:20 | NUR ---
[facility] who will reach out to pt and "see if he wants it." OUMAR advised she could also call the two children on his face sheet as they are DPOA-HC to assist.
== END 2024-01-15 12:55 | disposition home or self-care (01) | DRG 640 ==
LOC: COL.ER 06:43 → MEDICAL 08:47
PROVIDERS: Emergency Medicine; Personal Emergency Response Attendant; ADMIT Internal Medicine
DX: E87.5 Hyperkalemia (principal); I50.23 Acute on chronic systolic (congestive) heart failure; N18.6 End stage renal disease; G93.40 Encephalopathy, unspecified; C85.90 Non-Hodgkin lymphoma, unspecified, unspecified site; Z99.2 Dependence on renal dialysis; K21.9 Gastro-esophageal reflux disease without esophagitis; D72.829 Elevated white blood cell count, unspecified; Z91.158 Patient's noncompliance with renal dialysis for other reason; Z79.82 Long term (current) use of aspirin; F17.200 Nicotine dependence, unspecified, uncomplicated
CPT/HCPCS: A9270; J0696; J1644; P9047; Q3014